=== PATIENT | male | born 1980 | race Two or more races ===

== ENCOUNTER → 2021-02-21 08:12 | Outpatient (BNVA) | payer SELFPAY | PROVIDERS: Visit Provider Surgery ==

== ENCOUNTER → 2021-02-26 10:59 | Outpatient (BNVA) | payer OTHER, SELFPAY | PROVIDERS: Visit Provider Physician Assistant ==

== ENCOUNTER 2021-08-05 17:39 | Inpatient (IN) | payer OTHER, SELFPAY ==
--- NOTE | 2021-08-05 | ECG_ITS ---
Test Reason : CHEST PAIN Blood Pressure : / mmHG Vent. Rate : 091 BPM Atrial Rate : 091 BPM P-R Int : 178 ms QRS Dur : 102 ms QT Int : 380 ms P-R-T Axes : 052 087 026 degrees QTc Int : 467 ms Normal sinus rhythm Low voltage QRS Nonspecific T wave abnormality RSR' or QR pattern in V1 suggests right ventricular conduction delay Abnormal ECG When compared with ECG of 05-AUG-2021 21:14, Nonspecific T wave abnormality now evident in Lateral leads Referred By: Edgar Hernandez Electronically Signed By:GAEL AGUIAR MD
--- NOTE | ~2021-08-05 | XR_ITS ---
EXAMINATION: XR chest 2V CLINICAL INFORMATION: Chest pain COMPARISON: No prior chest x-ray available in our system for comparison at the time of this dictation. TECHNIQUE: XR chest 2V Lungs and Jossy: Both lungs are clear. Pleura: Normal. Costophrenic angles are sharp. No pneumothorax. Heart: The heart is normal in size. Mediastinum: The mediastinum is within normal limits.. Bones: Skeletal structures included are normal for patient's age. XR/XR chest 2V IMPRESSION: Normal chest x-ray.
--- NOTE | 2021-08-05 08:36 | ECG_ITS ---
Test Reason : CHEST PAIN Blood Pressure : / mmHG Vent. Rate : 090 BPM Atrial Rate : 090 BPM P-R Int : 184 ms QRS Dur : 108 ms QT Int : 384 ms P-R-T Axes : 055 085 031 degrees QTc Int : 469 ms Normal sinus rhythm RSR' or QR pattern in V1 suggests right ventricular conduction delay Borderline ECG When compared with ECG of 05-AUG-2021 17:46, No significant change was found Referred By: Eamnuel Tariq Electronically Signed By:GAEL AGUIAR MD
--- NOTE | 2021-08-05 17:40 | ECG_ITS ---
Test Reason : CHEST PAIN Blood Pressure : / mmHG Vent. Rate : 079 BPM Atrial Rate : 079 BPM P-R Int : 184 ms QRS Dur : 104 ms QT Int : 398 ms P-R-T Axes : 055 080 030 degrees QTc Int : 456 ms Normal sinus rhythm RSR' or QR pattern in V1 suggests right ventricular conduction delay Borderline ECG No previous ECGs available Referred By: Generic ED Physician Electronically Signed By:GAEL AGUIAR MD
[2021-08-05 17:55] VITALS: BP 147/97; PULSE 81; RESP 18; TEMP 36.4; O2SAT 97; BMI 47.2
[2021-08-05 19:35] LABS: MANUAL DIFF FLAG NO
[2021-08-05 19:36] LABS: Basophils Percent Auto 0.1 % (0-2); Eosinophils Absolute Auto 0.1 X10*3/uL (0.0-0.4); Eosinophils Percent Auto 1.6 % (0-4); Hemoglobin 16.1 g/dl (14.0-18.0); Imm Gran Abs Auto 0.02 X10*3/uL (0.00-0.03); Imm Gran Pct Auto 0.2 % (0.0-0.4); Lymphocytes Absolute Auto 2.2 X10*3/uL (1.2-4.9); Lymphocytes Percent Auto 25.2 % (20-40); Mean Corpuscular HGB Conc 32.2 g/dl (31.0-36.0); Mean Corpuscular Hemoglobin 27.4 pg (27.0-33.0); Mean Corpuscular Volume 85.2 fL (80.0-98.0); Mean Platelet Volume 9.6 fL (9.4-12.4); Monocytes Absolute Auto 0.8 X10*3/uL (0.1-1.2); Monocytes Percent Auto 9.8 % (2-11); Neutrophils Absolute Auto 5.4 x10*3/uL (2.0-8.3); Neutrophils Percent Auto 63.1 % (45-73); Platelet Count 236 X10*3/uL (160-400); Red Blood Count 5.87 X10*6/uL (4.60-5.80); Red Cell Distribution Width 14.1 % (11.0-16.0); White Blood Count 8.6 X10*3/uL (4.8-10.8)
[2021-08-05 19:53] LABS: Alanine Aminotransferase 35 U/L (0-40); Albumin Level 4.1 g/dL (3.5-5.0); Alkaline Phosphatase 84 U/L (39-117); Anion Gap 11 (12-20); Aspartate Amino Transferase 56 U/L (5-37); Bilirubin Total 0.6 mg/dL (0.0-1.0); Blood Urea Nitrogen 10 mg/dL (9-16); Calcium 9.2 mg/dL (8.4-10.2); Carbon Dioxide 32 mmol/L (22-29); Chloride 101 mmol/L (96-108); Estimated Glomerular Filt Rate > 60; Glucose Random 104 mg/dL (60-115); Potassium 3.7 mmol/L (3.3-5.1); Sodium 140 mmol/L (135-145); Total Protein 7.9 g/dL (6.5-8.0)
[2021-08-05 20:28] VITALS: BP 145/100; PULSE 87; RESP 19; TEMP 37; O2SAT 97
--- NOTE | 2021-08-05 20:33 | ED.CHESTPAIN ---
HPI - Chest Pain General Chief Complaint: Chest Pain Stated Complaint: cp Time Seen by Provider: 08/05/21 20:24 Source: patient History of Present Illness HPI narrative: Patient complaining of 4 hours of chest pain. It is anterior chest and nonradiating. Worse with deep breath. No other associated symptoms such as dyspnea or diaphoresis. No history of similar pain in his life. Recent history significant for dental infection for which he is on clindamycin, but that is improving. He is due for a dental extraction in about 9 days. He takes no other medications. No history of diabetes or hypertension or smoking Positive history of obesity with a BMI of 47 Related Data Home Medications Medication Instructions Recorded Confirmed No Known Home Meds 02/21/21 02/21/21 Allergies Allergy/AdvReac Type Severity Reaction Status Date / Time Aspirin Allergy Unknown swelling Uncoded 08/05/21 17:55 Penicillin Allergy Unknown swelling Uncoded 08/05/21 17:55 Review of Systems Constitutional: Constitutional: Denies fever(s) ENT: Comments: Dental infection left lower anterior molar Cardiovascular: Cardiovascular: Reports chest pain Respiratory: Comments: No cough or dyspnea Gastrointestinal: Comments: No nausea vomiting Musculoskeletal: Comments: No leg pain Integumentary/Breasts: Comments: No rash PMFSH Past Medical History Medical History (Updated 08/05/21 @ 21:41 by Emanuel Tariq MD) GERD (gastroesophageal reflux disease) Morbid obesity Sleep apnea with use of continuous positive airway pressure (CPAP) Surgical History History of kidney surgery Social History Social History (Updated 02/21/21 @ 13:40 by Sonido Tovar MD) Alcohol intake: never Patient Tobacco Use Status: Former Tobacco user Advance Directives: No Advance Directives Information Provided: No Physical Exam Vital Signs: Vital Signs: Last Vital Signs Temp 98.6 F 08/05/21 20:28 Pulse 87 08/05/21 20:28 Resp 19 08/05/21 20:28 BP 145/100 H 08/05/21 20:28 Pulse Ox 97 08/05/21 20:28 Body Mass Index 47.2 Course Course Course Narrative: Chest pain Myocardial infarction Myocarditis Pericarditis Musculoskeletal pain EKG normal sinus rhythm without ischemic changes Patient is allergic to aspirin and NSAIDs. Allergy is rash and swollen face. Will hold off on aspirin treatment. 8:37 p.m.. Troponin is very elevated at 5600. Will repeat the troponin and repeat EKG now. Cardiology to be consulted 9:39 p.m.. Second troponin is 5688 up from 5641. Posterior EKG without ST elevation. Repeat EKG unchanged from prior now the patient is pain free. Case discussed with from Cardiology. Will start heparin and Brilinta. Patient is allergic to aspirin so will hold on this. Will hospitalize for further workup MDM - Chest Pain Lab Data Result diagrams: 08/05/21 19:30 08/05/21 19:30 Labs: Lab Results 08/05/21 08/05/21 08/05/21 Range/Units 19:30 19:30 19:30 WBC 8.6 (4.8-10.8) X10*3/uL RBC 5.87 H (4.60-5.80) X10*6/uL Hgb 16.1 (14.0-18.0) g/dl Hct 50.0 (42.0-52.0) % MCV 85.2 (80.0-98.0) fL MCH 27.4 (27.0-33.0) pg MCHC 32.2 (31.0-36.0) g/dl RDW 14.1 (11.0-16.0) % Plt Count 236 (160-400) X10*3/uL MPV 9.6 (9.4-12.4) fL Immature Gran % (Auto) 0.2 (0.0-0.4) % Neut % (Auto) 63.1 (45-73) % Lymph % (Auto) 25.2 (20-40) % [place] % (Auto) 9.8 (2-11) % Eos % (Auto) 1.6 (0-4) % Baso % (Auto) 0.1 (0-2) % Lymph # (Auto) 2.2 (1.2-4.9) X10*3/uL [place] # (Auto) 0.8 (0.1-1.2) X10*3/uL Eos # (Auto) 0.1 (0.0-0.4) X10*3/uL Baso # (Auto) 0.0 (0.0-0.2) X10*3/uL Abs Immat Gran (auto) 0.02 (0.00-0.03) X10*3/uL Absolute Neuts (auto) 5.4 (2.0-8.3) x10*3/uL Absolute Nucleated RBC 0.000 (0.0-0.012) X10*3/uL Nucleated RBC % (auto) 0.0 (0.0-0.2) /100WBC D-Dimer High Sensitivty NG/ML Sodium 140 (135-145) mmol/L Potassium 3.7 (3.3-5.1) mmol/L Chloride 101 (96-108) mmol/L Carbon Dioxide 32 H (22-29) mmol/L Anion Gap 11 L (12-20) BUN 10 (9-16) mg/dL Creatinine 0.81 (0.5-1.4) mg/dL Estim Creat Clear Calc 174.0 Estimated GFR > 60 Random Glucose 104 (60-115) mg/dL Calcium 9.2 (8.4-10.2) mg/dL Total Bilirubin 0.6 (0.0-1.0) mg/dL AST 56 H (5-37) U/L ALT 35 (0-40) U/L Alkaline Phosphatase 84 (39-117) U/L Troponin I High Sens 5641.3 H* (<3.5-35.0) ng/L Total Protein 7.9 (6.5-8.0) g/dL Albumin 4.1 (3.5-5.0) g/dL 08/05/21 08/05/21 Range/Units 20:35 20:58 WBC (4.8-10.8) X10*3/uL RBC (4.60-5.80) X10*6/uL Hgb (14.0-18.0) g/dl Hct (42.0-52.0) % MCV (80.0-98.0) fL MCH (27.0-33.0) pg MCHC (31.0-36.0) g/dl RDW (11.0-16.0) % Plt Count (160-400) X10*3/uL MPV (9.4-12.4) fL Immature Gran % (Auto) (0.0-0.4) % Neut % (Auto) (45-73) % Lymph % (Auto) (20-40) % [place] % (Auto) (2-11) % Eos % (Auto) (0-4) % Baso % (Auto) (0-2) % Lymph # (Auto) (1.2-4.9) X10*3/uL [place] # (Auto) (0.1-1.2) X10*3/uL Eos # (Auto) (0.0-0.4) X10*3/uL Baso # (Auto) (0.0-0.2) X10*3/uL Abs Immat Gran (auto) (0.00-0.03) X10*3/uL Absolute Neuts (auto) (2.0-8.3) x10*3/uL Absolute Nucleated RBC (0.0-0.012) X10*3/uL Nucleated RBC % (auto) (0.0-0.2) /100WBC D-Dimer High Sensitivty 156 NG/ML Sodium (135-145) mmol/L Potassium (3.3-5.1) mmol/L Chloride (96-108) mmol/L Carbon Dioxide (22-29) mmol/L Anion Gap (12-20) BUN (9-16) mg/dL Creatinine (0.5-1.4) mg/dL Estim Creat Clear Calc Estimated GFR Random Glucose (60-115) mg/dL Calcium (8.4-10.2) mg/dL Total Bilirubin (0.0-1.0) mg/dL AST (5-37) U/L ALT (0-40) U/L Alkaline Phosphatase (39-117) U/L Troponin I High Sens 5680.1 H* (<3.5-35.0) ng/L Total Protein (6.5-8.0) g/dL Albumin (3.5-5.0) g/dL Discharge Plan Discharge Prescriptions: No Action No Known Home Meds RF: 0
[2021-08-05] MEDS: Nitroglycerin 2 % Oint 1 GM Packet 1 INCH TRANSDERMA (20:39)
[2021-08-05 21:21] LABS: D Dimer High Sensitivity 156 NG/ML
[2021-08-05] MEDS: Ticagrelor 90 MG TABLET 180 MG PO (21:54)
[2021-08-05 21:58] VITALS: BP 120/91; PULSE 86; RESP 18; O2SAT 94
[2021-08-05 22:32] LABS: INTERNATIONAL NORM RATIO 1.2 (0.9-1.1); Prothrombin Time 14.1 SEC (9.9-13.0)
--- NOTE | 2021-08-05 22:34 | PM.IMHP ---
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 Pain started around 4:00 p.m., nonradiating, occurred at rest, resolved with arrival to the ED and receiving pain medication in the ED, he can not describe the pain it just feels very uncomfortable, associated with shortness of breath, 8/10, lasting about 1 hour and resolving spontaneously. Patient reports that he was feeling severely tired today and had shaking and chest fell overall sick. He otherwise denies any abdominal pain nausea or vomiting, no diarrhea constipation, no urinary symptoms and no lower extremity edema. On arrival to the ED patient hemodynamically stable with no significant abnormal vitals Labs are significant for WBC count of 9.6 hemoglobin of 14.5, initial troponin of 5641 increase to 5680 COVID-19 negative EKG is normal sinus rhythm with no significant ST T wave changes Chest x-ray shows no abnormal findings Patient started on heparin drip and will be admitted for further management Review of Systems Review of Systems: Yes all other systems are reviewed and are negative [facility] Medical History GERD (gastroesophageal reflux disease) Morbid obesity Sleep apnea with use of continuous positive airway pressure (CPAP) Family History Father Coronary artery disease Diabetes Surgical History History of kidney surgery Social History Household Members: Spouse Housing: House Do you presently have visiting nurse or other home services: No Alcohol intake: never Patient Tobacco Use Status: Former Tobacco user Use of substances other than those prescribed or required for medical reasons: No Have you been hit, kicked, punched, or otherwise hurt by someone within the past year? If so, by whom?: No Do you feel safe in your current relationship?: Yes Is there a partner from a previous relationship who is making you feel unsafe now?: No Are you made to feel afraid or neglected: No Advance Directives: No Advance Directives Information Provided: No Do you have thoughts of harming others: None Do you have a plan to hurt others: No Plan Recently lost weight without trying: No Eating poorly because of decreased appetite: No Nutrition Risks: No Nutritional Risk Poor oral hygiene: No Meds Allergies Allergy/AdvReac Type Severity Reaction Status Date / Time Aspirin Allergy Unknown swelling Uncoded 08/05/21 17:55 Penicillin Allergy Unknown swelling Uncoded 08/05/21 17:55 Active Medications: Current Medications Heparin Sodium (Porcine) (Heparin Sodium,Porcine 5,000 Unit/Ml Vial) 5,800 unit 40 unit/kg (5800 unit) IVPUSH PROTOCOL BOLUS PRN; Protocol PRN Reason: 40 unit/kg - Heparin Protocol Heparin Sodium (Porcine) (Heparin Sodium,Porcine 5,000 Unit/Ml Vial) 10,000 unit IVPUSH PROTOCOL BOLUS PRN; Protocol PRN Reason: 80 unit/kg - Heparin Protocol Heparin Sodium/Sodium Chloride () 25,000 unit in 250 mls @ 0 mls/hr IVCONT .Q0M BROOKE; Protocol Home Medications Medication Instructions Recorded Confirmed Last Taken Type No Known Home Meds 02/21/21 02/21/21 Unknown History Physical Exam Vital Signs and Narrative: Vital Signs: Last Vital Signs Temp 98.6 F 08/05/21 20:28 Pulse 86 08/05/21 21:58 Resp 18 08/05/21 21:58 BP 120/91 H 08/05/21 21:58 Pulse Ox 94 08/05/21 21:58 Body Mass Index 47.2 Const: General: cooperative and no acute distress Orientation/consciousness: patient oriented x3 Eyes: General: appearance normal, both eyes and all related structures Pupils: Equal, round and reactive pupils present Resp: Effort & Inspection: normal respiratory effort Auscultation: clear to auscultation bilaterally Cardio: Rate: regular rate Rhythm: regular rhythm GI: Palpation (GI): Soft to palpation Auscultation: normal bowel sounds Skin: General skin exam: no rashes or lesions noted Neuro: General: patient oriented x3 Cranial nerves: Yes Equal, round and reactive pupils present Cognition (Neuro): normal cognition Extrem: General: Yes normal to inspection and Yes no pedal edema Results Labs CBC and Chem 7: 08/06/21 04:33 08/06/21 04:33 Labs: Laboratory Results - last 24 hr 08/05/21 08/05/21 08/05/21 19:30 19:30 19:30 MCV 85.2 MCH 27.4 MCHC 32.2 RDW 14.1 Plt Count 236 MPV 9.6 Immature Gran % (Auto) 0.2 Neut % (Auto) 63.1 Lymph % (Auto) 25.2 [place] % (Auto) 9.8 Eos % (Auto) 1.6 Baso % (Auto) 0.1 Lymph # (Auto) 2.2 [place] # (Auto) 0.8 Eos # (Auto) 0.1 Baso # (Auto) 0.0 Abs Immat Gran (auto) 0.02 Absolute Neuts (auto) 5.4 Absolute Nucleated RBC 0.000 Nucleated RBC % (auto) 0.0 D-Dimer High Sensitivty Anion Gap 11 L Estim Creat Clear Calc 174.0 Estimated GFR > 60 Random Glucose 104 Calcium 9.2 Total Bilirubin 0.6 AST 56 H ALT 35 Alkaline Phosphatase 84 Troponin I High Sens 5641.3 H* Total Protein 7.9 Albumin 4.1 08/05/21 08/05/21 20:35 20:58 MCV MCH MCHC RDW Plt Count MPV Immature Gran % (Auto) Neut % (Auto) Lymph % (Auto) [place] % (Auto) Eos % (Auto) Baso % (Auto) Lymph # (Auto) [place] # (Auto) Eos # (Auto) Baso # (Auto) Abs Immat Gran (auto) Absolute Neuts (auto) Absolute Nucleated RBC Nucleated RBC % (auto) D-Dimer High Sensitivty 156 Anion Gap Estim Creat Clear Calc Estimated GFR Random Glucose Calcium Total Bilirubin AST ALT Alkaline Phosphatase Troponin I High Sens 5680.1 H* Total Protein Albumin Imaging Radiologist's Impressions: Impressions Chest X-Ray 08/05/21 17:58 IMPRESSION: Normal chest x-ray. Assessment and Plan (1) Acute non-ST elevation myocardial infarction (NSTEMI): Status: Acute 41-year-old male with past medical history of asthma as well as sleep apnea presents to hospital with chest pain found to have NSTEMI # NSTEMI - presented with chest pain, significantly elevated troponin, no EKG changes - patient started on heparin drip - will add Lopressor, high-dose statin, allergic to aspirin - echocardiogram - consult cardiology # asthma - not in exacerbation - rescue inhalers if needed # sleep apnea - noncompliant with CPAP DVT prophylaxis: Heparin GGT Quality Stroke Does the patient have a stroke diagnosis?: No VTE Prior VTE?: No VTE Risk Level:: Medical - moderate - high VTE Device Contraindication: Treatment Not Indicated VTE Drug Contraindication: N/A - Med Ordered
[2021-08-05 22:35] LABS: Partial Thromboplastin Time 34.2 SEC (24.1-38.0)
[2021-08-05 22:37] LABS: COVID-19 Test Negative (Negative)
[2021-08-05] MEDS: Heparin Sodium,Porcine 5,000 UNIT/ML VIAL 5800 UNIT IVPUSH (22:43)
[2021-08-05] MEDS: Heparin Sodium,Porcine/1/2NS 25,000 UNIT/250 ML IV.SOLN 20.32 UNIT IVCONT (22:46)
[2021-08-05 22:50] VITALS: BP 114/76; PULSE 81; RESP 15; TEMP 36.9; O2SAT 94
[2021-08-06] MEDS: 0.9 % Sodium Chloride Flush 3 ML SYRINGE IVFLUSH (00:11)
[2021-08-06 03:30] VITALS: BP 134/83; PULSE 81; RESP 20; TEMP 36.8; O2SAT 97
[2021-08-06 04:37] LABS: MANUAL DIFF FLAG NO
[2021-08-06 04:39] LABS: Basophils Percent Auto 0.3 % (0-2); Eosinophils Absolute Auto 0.2 X10*3/uL (0.0-0.4); Eosinophils Percent Auto 2.2 % (0-4); Hematocrit 44.9 % (42.0-52.0); Hemoglobin 14.5 g/dl (14.0-18.0); Imm Gran Abs Auto 0.03 X10*3/uL (0.00-0.03); Imm Gran Pct Auto 0.3 % (0.0-0.4); Lymphocytes Absolute Auto 2.5 X10*3/uL (1.2-4.9); Lymphocytes Percent Auto 26.6 % (20-40); Mean Corpuscular HGB Conc 32.3 g/dl (31.0-36.0); Mean Corpuscular Hemoglobin 27.4 pg (27.0-33.0); Mean Corpuscular Volume 84.9 fL (80.0-98.0); Monocytes Absolute Auto 1.1 X10*3/uL (0.1-1.2); Monocytes Percent Auto 11.6 % (2-11); Neutrophils Absolute Auto 5.6 x10*3/uL (2.0-8.3); Platelet Count 237 X10*3/uL (160-400); Red Blood Count 5.29 X10*6/uL (4.60-5.80); Red Cell Distribution Width 14.2 % (11.0-16.0); White Blood Count 9.6 X10*3/uL (4.8-10.8)
[2021-08-06 04:49] LABS: PTT Heparin Drip 51.3 SEC (53-77.9)
[2021-08-06 04:53] LABS: Anion Gap 13 (12-20); Blood Urea Nitrogen 10 mg/dL (9-16); Calcium 8.6 mg/dL (8.4-10.2); Carbon Dioxide 26 mmol/L (22-29); Chloride 106 mmol/L (96-108); Creatinine Clr Calc Pharmacy 201.3; Estimated Glomerular Filt Rate > 60; Glucose Random 113 mg/dL (60-115); Potassium 3.5 mmol/L (3.3-5.1); Sodium 141 mmol/L (135-145)
[2021-08-06] MEDS: Heparin Sodium,Porcine 5,000 UNIT/ML VIAL 5800 UNIT IVPUSH (05:04)
[2021-08-06 07:23] VITALS: BP 115/66; PULSE 75; RESP 20; TEMP 36.7; O2SAT 91
--- NOTE | 2021-08-06 10:00 | CA_ITS ---
Transthoracic Echocardiogram Patient (Last, First, Middle): Trino Pink, Gender: Male Date of : 1980 Age: 41 Procedure Date: 08/06/2021 Procedure Type: Transthoracic [place] [facility] [place]: 177.8 cm Weight: 154.22 kg BSA: 2.62 m2 Heart Rate: bpm BP: 134 / 80 mmHg Loop Tender: Referring MD: Helen Spencer MD Cinder Pit Worker: Kush Alvarez MD Symptoms: NSTEMI Study Quality: Fair ECG Rhythm: Sinus Conclusions: - 1. [id number] LV systolic dysfunction mild LVH with impaired relaxation filling pattern with underlying wall motion abnormality suggestive of coronary artery disease 2. Limited evaluation of cardiac valves with normal cardiac valvular Doppler Findings Left Ventricle Normal left ventricular cavity size. There is mildly increased left ventricular wall thickness. The left ventricular systolic function is mild to moderately decreased. The visually estimated ejection fraction is between 40-45%. Spectral Doppler is indicative of an impaired relaxation filling pattern. E/E prime ratio is between 8 and 15 consistent with indeterminate filling pressures. Wall Motion Rest Echo Findings The inferolateral wall and mid inferior segment are hypokinetic. The inferoseptal wall, the basal inferior, and apical septum segments are akinetic. All other scored wall segments showed normal motion. Right Ventricle Mildly increased right ventricular cavity size. There is normal right ventricular systolic function. Atria The left atrium is mildly dilated. Interatrial shunt cannot be excluded. The right atrium was not well visualized. Aortic Valve The aortic valve structure and function is likely normal. There is no aortic valve stenosis. There is no aortic valve regurgitation. Mitral Valve Likely normal mitral valve structure and function. There is trace mitral valve regurgitation. There is no mitral valve stenosis. Pulmonic Valve The pulmonic valve was not well visualized. Tricuspid Valve The tricuspid valve was not well visualized. Tricuspid regurgitation envelope is inadequate for calculation of right ventricular systolic pressure. Great Vessels The aorta was not well visualized. The pulmonary artery was not well visualized. Venous The inferior vena cava is mildly dilated. Pericardium/Pleural The pericardium was not well visualized. Prior Study Comparison No prior study available for comparison. Measurements 2D Linear Measurements IVSd: 1.20 0.6-0.9/0.6-1.0 cm LVIDd: 5.24 3.9-5.3/4.2-5.9 cm LVIDd Index: 2.00 2.4-3.2/2.2-3.1 cm/m2 LVIDs: 3.08 2.0-3.6 cm LVPWd: 1.21 0.7-1.1 cm Ao Root: 3.60 2.1-3.5 cm LA Diam: 4.40 2.7-3.8/3.0-4.0 cm LAIDs Index: 1.68 1.5-2.3 cm/m2 LV Mass: 315.97 67-162/88-224 g LV Mass Index: 120.60 43-95/49-115 g/m2 LVOT Diam: 2.40 3.0+(-)1.3 cm 2D Systolic Function EF 4C: 41.60 >55% EF 2C: 46.30 >55% EF BiP: 44.90 >55% Mitral Valve MV Pk E: 0.71 MV PK A: 0.81 MV Decel Time: 155.00 E/A: 0.90 E'Lateral: 8.05 E'Medial: 6.20 E/E' Med: 11.40 E/E' Lat: 8.80 PHT: 45.00 MVA PHT: 4.89 Decel Dickson: 4.57 Aortic Valve AoV Pk Dewey: 1.08 AoV Mn Dewey: 0.74 AoV VTI: 0.22 AoV Pk Grad: 5.00 Aov Mn Grad: 3.00 OMKAR Cont.VTI: 4.36 LVOT LVOT Pk Dewey: 0.96 LVOT Mn Dewey: 0.68 LVOT VTI: 0.22 LVOT Pk Grad: 4.00 LVOT Mn Grad: 2.00 LVOT Diam: 2.40 LVOT Area: 4.52 Diastolic Function MV Pk E: 0.71 MV Pk A: 0.81 E/A: 0.90 E'Medial: 6.20 E/E' Med: 11.40 E' Laterial: 8.05 E/E' Lat: 8.80 Tricuspid Valve TR Pk Dewey: 2.08 TR Pk Grad: 17.00 Great Vessels Aorta Ao Root-2D: 3.60 2.0-3.7 cm Ao Asc: 3.50 2.1-3.4 cm Pulmonary Valve PV Pk Dewey: 1.00 Peak PV Grad: 4.00 Updated in Other Vendor System with Status of Final Kush Alvarez MD electronically signed on 08/06/2021 3:38:55 PM with status of Final
--- NOTE | 2021-08-06 10:00 | P.CONCA_ITS ---
History of Present Illness History of Present Illness Date of Service: 08/06/21 Requesting physician: Helen Spencer Consult reason: chest pain Chief complaint: NSTEMI Narrative: Thank you for consulting us on Trino from Cardiology perspective for chest pain elevated troponins. History was obtained with help of a language interpreter in the room. Patient's was also in the room with him. Patient with prior history of asthma, morbid obesity, sleep apnea untreated as patient cannot tolerate CPAP therapy. In usual state of health yesterday was in a restaurant with his . As per the he got a little upset with the service and then subsequently developed retrosternal chest pressure which he describes as sharp pressure, worse with deep breathing radiating will side of the chest. However symptoms did not subside any decided to go home and went home, could not eat because he continued to have the chest pressure. He then developed to sleep but then woke up suddenly feeling weak and feeling shaky. He had no associated symptoms of shortness of breath or diaphoresis. No nausea vomiting. He has never had symptoms like this before. Symptoms persisted for greater than an hour. He then decided to come to the emergency room. Initially in the emergency room was no significant ischemic changes. He subsequently received nitro paste as well as IV medication subsequently with discomfort resolved. His initial troponin was 5600 and subsequently to 5800. He was admitted and started on IV heparin. He has remained chest pain-free at this point in time. Blood pressure was well optimized. He does have allergy for aspirin with what appears to be hives and throat swelling. He has received loading dose of Brilinta. Review of Systems Constitutional: Constitutional: Reports no additional constitutional complaints Eyes: Eyes: Reports no additional eye complaints ENT: Reports system reviewed and no additional complaints, except as docu mented Cardiovascular: Cardiovascular: Reports chest pain at rest, Denies syncope, Denies lightheadedness, Denies Loss of Consciousness, Denies palpitations and Denies dyspnea on exertion Respiratory: Respiratory: Reports no additional respiratory complaints and Denies dyspnea on exertion Gastrointestinal: Gastrointestinal: Reports no additional gastrointestinal complaints Genitourinary: Genitourinary: Reports no additional male genitourinary complaints Musculoskeletal: Musculoskeletal: Reports no additional musculoskeletal complaints Integumentary/Breasts: Skin/Breast: Reports system reviewed and no additional complaints, except as docu Neurologic: Reports system reviewed and no additional complaints, except as documented and Denies syncope Psychiatric: Psychiatric: Reports no additional psychiatric complaints Endocrine: Endocrine: Reports no additional endocrine complaints and Denies palpitations Hematologic/Lymphatic: Hematologic/Lymphatic: Reports no additional price tologic/lymphatic complaints Allergic/Immunologic: Allergic/Immunologic: Reports no additional allergic/immunologic complaints [facility] Past Medical History Medical History GERD (gastroesophageal reflux disease) Morbid obesity Sleep apnea with use of continuous positive airway pressure (CPAP) Family History Family History Father Coronary artery disease Diabetes Surgical History Surgical History History of kidney surgery Social History Social History Household Members: Spouse Housing: House Do you presently have visiting nurse or other home services: No Alcohol intake: never Patient Tobacco Use Status: Former Tobacco user Use of substances other than those prescribed or required for medical reasons: No Have you been hit, kicked, punched, or otherwise hurt by someone within the past year? If so, by whom?: No Do you feel safe in your current relationship?: Yes Is there a partner from a previous relationship who is making you feel unsafe now?: No Are you made to feel afraid or neglected: No Advance Directives: No Advance Directives Information Provided: No Do you have thoughts of harming others: None Do you have a plan to hurt others: No Plan Recently lost weight without trying: No Eating poorly because of decreased appetite: No Nutrition Risks: No Nutritional Risk Poor oral hygiene: No Meds Allergies Allergy/AdvReac Type Severity Reaction Status Date / Time Aspirin Allergy Unknown swelling Uncoded 08/05/21 17:55 Penicillin Allergy Unknown swelling Uncoded 08/05/21 17:55 Active Medications: Current Medications Acetaminophen (Acetaminophen 325 Mg Tablet) 650 mg PO Q6H PRN PRN Reason: Pain, Mild (Pain Scale 1-3) Atorvastatin Calcium (Atorvastatin Calcium 40 Mg Tablet) 40 mg PO DAILY [place] Docusate Sodium (Docusate Sodium 100 Mg Capsule) 100 mg PO DAILY PRN PRN Reason: Constipation Heparin Sodium (Porcine) (Heparin Sodium,Porcine 5,000 Unit/Ml Vial) 5,800 unit 40 unit/kg (5800 unit) IVPUSH PROTOCOL BOLUS PRN; Protocol PRN Reason: 40 unit/kg - Heparin Protocol Last Admin: 08/06/21 05:04 Dose: 5,800 unit Documented by: Heparin Sodium (Porcine) (Heparin Sodium,Porcine 5,000 Unit/Ml Vial) 10,000 u nit IVPUSH PROTOCOL BOLUS PRN; Protocol PRN Reason: 80 unit/kg - Heparin Protocol Heparin Sodium/Sodium Chloride () 25,000 unit in 250 mls @ 0 mls/hr IVCONT .Q0M [facility]; Protocol Last Titration: 08/06/21 05:05 Dose: 16 units/kg/hr, 23.22 mls/hr Documented by: Metoprolol Tartrate (Metoprolol Tartrate 12.5 Mg Halftab) 12.5 mg PO BID [facility]; Protocol Morphine Sulfate (Morphine Sulfate 4 Mg/Ml Cartridge) 4 mg IVPUSH Q4H PRN; Protocol PRN Reason: Pain, Severe (Pain Scale 7-10) Ondansetron HCl (Ondansetron Hcl 4 Mg/2 Ml Vial) 4 mg IVPUSH Q8H PRN PRN Reason: Nausea and Vomiting Pharmacy Consult (Consult Rx Perform Med Rec) 1 each MISCELLANE ONCE PRN PRN Reason: Consult order Sodium Chloride (0.9 % Sodium Chloride Flush 3 Ml Syringe) 3 ml IVFLUSH [facility] Last Admin: 08/06/21 00:11 Dose: 3 ml Documented by: Home Medications Medication Instructions Recorded Confirmed Last Taken Type No Known Home Meds 02/21/21 02/21/21 Unknown History Physical Exam Vital Signs: Vital Signs: Last Vital Signs Temp 98.0 F 08/06/21 07:23 Pulse 75 08/06/21 07:23 Resp 20 08/06/21 07:23 BP 115/66 08/06/21 07:23 Pulse Ox 91 L 08/06/21 07:23 Body Mass Index 47.2 Const: General: cooperative, comfortable, no acute distress, alert and awake Nutritional Appearance: obese morbidly obese Orientation/consciousness: patient oriented x3 Limitations: no limitations HENMT: Head: Yes normocephalic and Yes atraumatic Neck: Neck: Yes trachea midline, Yes supple and Yes no JVD Chest: Chest palpation & inspection: normal inspection of the chest Resp: Effort & Inspection: normal respiratory effort Auscultation: clear to auscultation bilaterally Cardio: Jugular venous distension: no JVD Palpation: normal PMI Rate: regular rate Rhythm: regular rhythm Heart sounds: S1 normal heart sound present, S2 normal heart sound present, no click, no gallops, no murmurs and no rubs GI: Inspection: Yes Abdominal panniculus present and Yes obesity Auscultation: normal bowel sounds Skin: General skin exam: no rashes or lesions noted Neuro: General: patient oriented x3 and no focal motor deficits Extrem: General: Yes no clubbing, cyanosis or edema Psych: Appearance: grossly normal Objective Labs and Meds Result diagrams: 08/06/21 04:33 08/06/21 04:33 Lab results: Laboratory Results - last 24 hr 08/05/21 08/05/21 08/05/21 19:30 19:30 19:30 WBC 8.6 RBC 5.87 H Hgb 16.1 Hct 50.0 MCV 85.2 MCH 27.4 MCHC 32.2 RDW 14.1 Plt Count 236 MPV 9.6 Immature Gran % (Auto) 0.2 Neut % (Auto) 63.1 Lymph % (Auto) 25.2 [place] % (Auto) 9.8 Eos % (Auto) 1.6 Baso % (Auto) 0.1 Lymph # (Auto) 2.2 [place] # (Auto) 0.8 Eos # (Auto) 0.1 Baso # (Auto) 0.0 Abs Immat Gran (auto) 0.02 Absolute Neuts (auto) 5.4 Absolute Nucleated RBC 0.000 Nucleated RBC % (auto) 0.0 PT INR APTT PTT (Heparin Protocol) D-Dimer High Sensitivty Sodium 140 Potassium 3.7 Chloride 101 Carbon Dioxide 32 H Anion Gap 11 L BUN 10 Creatinine 0.81 Estim Creat Clear Calc 174.0 Estimated GFR > 60 Random Glucose 104 Calcium 9.2 Total Bilirubin 0.6 AST 56 H ALT 35 Alkaline Phosphatase 84 Troponin I High Sens 5641.3 H* Total Protein 7.9 Albumin 4.1 COVID-19 (JAMES) COVID-19 Clin Com 08/05/21 08/05/21 08/05/21 20:35 20:58 22:18 WBC RBC Hgb Hct MCV MCH MCHC RDW Plt Count MPV Immature Gran % (Auto) Neut % (Auto) Lymph % (Auto) [place] % (Auto) Eos % (Auto) Baso % (Auto) Lymph # (Auto) [place] # (Auto) Eos # (Auto) Baso # (Auto) Abs Immat Gran (auto) Absolute Neuts (auto) Absolute Nucleated RBC Nucleated RBC % (auto) PT INR APTT PTT (Heparin Protocol) D-Dimer High Sensitivty 156 Sodium Potassium Chloride Carbon Dioxide Anion Gap BUN Creatinine Estim Creat Clear Calc Estimated GFR Random Glucose Calcium Total Bilirubin AST ALT Alkaline Phosphatase Troponin I High Sens 5680.1 H* Total Protein Albumin COVID-19 (JAMES) Negative COVID-19 Clin Com See Note 08/05/21 08/06/21 08/06/21 22:18 04:33 04:33 WBC 9.6 RBC 5.29 Hgb 14.5 Hct 44.9 MCV 84.9 MCH 27.4 MCHC 32.3 RDW 14.2 Plt Count 237 MPV 10.0 Immature Gran % (Auto) 0.3 Neut % (Auto) 59.0 Lymph % (Auto) 26.6 [place] % (Auto) 11.6 H Eos % (Auto) 2.2 Baso % (Auto) 0.3 Lymph # (Auto) 2.5 [place] # (Auto) 1.1 Eos # (Auto) 0.2 Baso # (Auto) 0.0 Abs Immat Gran (auto) 0.03 Absolute Neuts (auto) 5.6 Absolute Nucleated RBC 0.000 Nucleated RBC % (auto) 0.0 PT 14.1 H INR 1.2 H APTT 34.2 PTT (Heparin Protocol) D-Dimer High Sensitivty Sodium 141 Potassium 3.5 Chloride 106 Carbon Dioxide 26 Anion Gap 13 BUN 10 Creatinine 0.70 Estim Creat Clear Calc 201.3 Estimated GFR > 60 Random Glucose 113 Calcium 8.6 D Total Bilirubin AST ALT Alkaline Phosphatase Troponin I High Sens Total Protein Albumin COVID-19 (JAMES) COVID-19 [place] Com 08/06/21 04:33 WBC RBC Hgb Hct MCV MCH MCHC RDW Plt Count MPV Immature Gran % (Auto) Neut % (Auto) Lymph % (Auto) [place] % (Auto) Eos % (Auto) Baso % (Auto) Lymph # (Auto) [place] # (Auto) Eos # (Auto) Baso # (Auto) Abs Immat Gran (auto) Absolute Neuts (auto) Absolute Nucleated RBC Nucleated RBC % (auto) PT INR APTT PTT (Heparin Protocol) 51.3 L D-Dimer High Sensitivty Sodium Potassium Chloride Carbon Dioxide Anion Gap BUN Creatinine Estim Creat Clear Calc Estimated GFR Random Glucose Calcium Total Bilirubin AST ALT Alkaline Phosphatase Troponin I High Sens Total Protein Albumin COVID-19 (JAMES) COVID-19 Clin Com Imaging Radiologist's impression: Impressions Chest X-Ray 08/05/21 17:58 IMPRESSION: Normal chest x-ray. Assessment and Plan (1) Acute non-ST elevation myocardial infarction (NSTEMI): Status: Acute Patient's symptoms and elevated troponins highly consistent with primary acute coronary syndrome. SOFYA risk score of 2. Would recommend cardiac catheterization. This was discussed with him. Discussed the procedure in detail including risks, benefits, alternatives 2nd opinion procedure. He showed understanding. He is agreeable for transfer. Continue IV heparin. Continue Brilinta 90 mg b.i.d.. Continue high-intensity statin therapy. Low-dose beta- blockers and nitro paste to continue. Further treatment based on the findings of cardiac catheterization. He has significant aspirin allergy and will direct treatment and antiplatelet therapy based on the findings and type of stent used. This was discussed with him. He understands and agrees. Echocardiogram pre done. Will review it. Follow up in the clinic after cardiac catheterization in few weeks. Thank you for allowing me to partake in his care Procedures Date of Service Date of Service: 08/06/21
--- NOTE | 2021-08-06 10:07 | MHC.CM.PN ---
with interpeertaor met with pt who lices with his s/o pt had no previous servceis pt to be transferred to [facility] today
--- NOTE | 2021-08-06 10:14 | PHA.MEDREC ---
Pharmacy Consult ? Medication Reconciliation Pharmacy has completed the medication reconciliation. Per interpertur patient is being transfer, completed med rec based on claim history. Desi Cooper, RanjitD
[2021-08-06 10:18] VITALS: BP 115/66; PULSE 75
[2021-08-06] MEDS: Metoprolol Tartrate 12.5 MG HALFTAB PO (10:18)
[2021-08-06] MEDS: Atorvastatin Calcium 40 MG TABLET PO (10:18)
[2021-08-06] MEDS: Heparin Sodium,Porcine/1/2NS 25,000 UNIT/250 ML IV.SOLN 23.22 UNIT IVCONT (10:19)
--- NOTE | 2021-08-06 10:19 | P.DS_ITS ---
DS: Providers Provider Date of Service: 08/06/21 Date of admission: 08/05/21 22:33 Primary care physician: None Physician Consults: 08/05/21 22:52 Consult to Cardiology Routine Consulting Provider: Woo Olson Reason for consultation: NSTEMI Has provider been notified: Yes DS: Diagnosis Discharge Diagnosis (1) Acute non-ST elevation myocardial infarction (NSTEMI): Status: Acute DS: Summary Hospital Course Hospital Course: from admission H+P by hospitalist Helen Spencer MD, 08/05/21: 41-year-old male with past medical history of asthma as well as sleep apnea not compliant with CPAP, GERD as well as morbid obesity who presents to the hospital with complaints of midsternal chest pain.? Pain started around 4:00 p.m., nonradiating, occurred at rest, resolved with arrival to the ED and receiving pain medication in the ED, he can not describe the pain it just feels very uncomfortable, associated with shortness of breath, 8/10, lasting about 1 hour and resolving spontaneously.? Patient reports that he was feeling severely tired today and had shaking and chest fell overall sick. He otherwise denies any abdominal pain nausea or vomiting, no diarrhea constipation, no urinary symptoms and no lower extremity edema.? On arrival to the ED patient hemodynamically stable with no significant abnormal vitals Labs are significant for WBC count of 9.6 hemoglobin of 14.5, initial troponin of? 5641 increase to 5680 COVID-19 negative EKG is normal sinus rhythm with no significant ST T wave changes Chest x-ray shows no abnormal findings Patient started on heparin drip and will be admitted for further management And from risk consultant by Kush Alvarez MD, 08/06/21: Thank you for consulting us on Trino from Cardiology perspective for chest pain elevated troponins.? History was obtained with help of? a information technology assistant in the room.? Patient's was also in the room with him.? Patient with prior history of asthma, morbid obesity, sleep apnea untreated as patient cannot tolerate CPAP therapy.? In usual state of health yesterday was in a restaurant with his .? As per the he got a little upset with the service and then subsequently developed retrosternal chest pressure which he describes as sharp pressure, worse with deep breathing radiating will side of the chest.? However symptoms did not subside any decided to go home and went home, could not eat because he continued to have the chest pressure.? He then developed to sleep but then woke up suddenly feeling weak and feeling shaky.? He had no associated symptoms of shortness of breath or diaphoresis.? No nausea vomiting.? He has never had symptoms like this before.? Symptoms persisted for greater than an hour.? He then decided to come to the emergency room.? Initially in the emergency room was no significant ischemic changes.? He subsequently received nitro paste as well as IV medication subsequently with discomfort resolved.? His initial troponin was 5600 and subsequently to 5800.? He was admitted and started on IV heparin.? He has remained chest pain-free at this point in time.? Blood pressure was well optimized.? He does have allergy for aspirin with what appears to be hives and throat swelling.? He has received loading dose of Brilinta. The patient was admitted to the [facility] and given heparin infusion. Ticagrelor was continued, along with high-intensity statin, low-dose beta-romana, and nitr oglycerin paste. Cardiology was consulted. He was transferred to [facility] for cardiac catheterization. Notably, he has a significant aspirin allergy and definitive antiplatelet therapy will depend on the type of stent used. Time Spent with Patient Time attestation: Total time spent providing and/or coordinating discharge services: Discharge coordination time: Greater than 30 minutes Quality: Stroke Does the patient have a stroke diagnosis?: No Physical Exam Vital Signs: Vital Signs: Last Vital Signs Temp 98.0 F 08/06/21 07:23 Pulse 75 08/06/21 07:23 Resp 20 08/06/21 07:23 BP 115/66 08/06/21 07:23 Pulse Ox 91 L 08/06/21 07:23 Body Mass Index 47.2 Gen: in no acute distress HEENT: sclera anicteric, moist mucus membranes Neck: supple Lungs: clear to auscultation bilaterally Heart: regular rate and rhythm, no murmurs Abd: soft, non-tender, non-distended, morbidly obese Ext: no edema Skin: warm/well-perfused Neuro: alert and oriented x3, no focal findings Psych: appropriate affect DS: Data Data Completed and Pending Completed studies during hospitalization [Text1]: Laboratory Results WBC 9.6 X10*3/uL (4.8-10.8) 08/06/21 04:33 RBC 5.29 X10*6/uL (4.60-5.80) 08/06/21 04:33 Hgb 14.5 g/dl (14.0-18.0) 08/06/21 04:33 Hct 44.9 % (42.0-52.0) 08/06/21 04:33 MCV 84.9 fL (80.0-98.0) 08/06/21 04:33 MCH 27.4 pg (27.0-33.0) 08/06/21 04:33 MCHC 32.3 g/dl (31.0-36.0) 08/06/21 04:33 RDW 14.2 % (11.0-16.0) 08/06/21 04:33 Plt Count 237 X10*3/uL (160-400) 08/06/21 04:33 MPV 10.0 fL (9.4-12.4) 08/06/21 04:33 Immature Gran % (Auto) 0.3 % (0.0-0.4) 08/06/21 04:33 Neut % (Auto) 59.0 % (45-73) 08/06/21 04:33 Lymph % (Auto) 26.6 % (20-40) 08/06/21 04:33 [place] % (Auto) 11.6 % (2-11) H 08/06/21 04:33 Eos % (Auto) 2.2 % (0-4) 08/06/21 04:33 Baso % (Auto) 0.3 % (0-2) 08/06/21 04:33 Lymph # (Auto) 2.5 X10*3/uL (1.2-4.9) 08/06/21 04:33 [place] # (Auto) 1.1 X10*3/uL (0.1-1.2) 08/06/21 04:33 Eos # (Auto) 0.2 X10*3/uL (0.0-0.4) 08/06/21 04:33 Baso # (Auto) 0.0 X10*3/uL (0.0-0.2) 08/06/21 04:33 Abs Immat Gran (auto) 0.03 X10*3/uL (0.00-0.03) 08/06/21 04:33 Absolute Neuts (auto) 5.6 x10*3/uL (2.0-8.3) 08/06/21 04:33 Absolute Nucleated RBC 0.000 X10*3/uL (0.0-0.012) 08/06/21 04:33 Nucleated RBC % (auto) 0.0 /100WBC (0.0-0.2) 08/06/21 04:33 PT 14.1 SEC (9.9-13.0) H 08/05/21 22:18 INR 1.2 (0.9-1.1) H 08/05/21 22:18 APTT 34.2 SEC (24.1-38.0) 08/05/21 22:18 PTT (Heparin Protocol) 51.3 SEC (53-77.9) L 08/06/21 04:33 D-Dimer High Sensitivty 156 NG/ML 08/05/21 20:58 Sodium 141 mmol/L (135-145) 08/06/21 04:33 Potassium 3.5 mmol/L (3.3-5.1) 08/06/21 04:33 Chloride 106 mmol/L (96-108) 08/06/21 04:33 Carbon Dioxide 26 mmol/L (22-29) 08/06/21 04:33 Anion Gap 13 (12-20) 08/06/21 04:33 BUN 10 mg/dL (9-16) 08/06/21 04:33 Creatinine 0.70 mg/dL (0.5-1.4) 08/06/21 04:33 Estim Creat Clear Calc 201.3 08/06/21 04:33 Estimated GFR > 60 08/06/21 04:33 Random Glucose 113 mg/dL (60-115) 08/06/21 04:33 Calcium 8.6 mg/dL (8.4-10.2) D 08/06/21 04:33 Total Bilirubin 0.6 mg/dL (0.0-1.0) 08/05/21 19:30 AST 56 U/L (5-37) H 08/05/21 19:30 ALT 35 U/L (0-40) 08/05/21 19:30 Alkaline Phosphatase 84 U/L (39-117) 08/05/21 19:30 Troponin I High Sens 5680.1 ng/L (<3.5-35.0) H* 08/05/21 20:35 Total Protein 7.9 g/dL (6.5-8.0) 08/05/21 19:30 Albumin 4.1 g/dL (3.5-5.0) 08/05/21 19:30 COVID-19 (JAMES) Negative (Negative) 08/05/21 22:18 COVID-19 Clin Com See Note 08/05/21 22:18 Impressions Chest X-Ray 08/05/21 17:58 IMPRESSION: Normal chest x-ray. Discharge Plan Discharge Patient Disposition: [facility] Hospital Discharge Diagnosis: NSTEMI Referrals: [facility] [Other] - 1 Week Physician,None [Primary Care Provider] - 1 Week Discharge Medications: New heparin(porcine) in 0.45% NaCl 25,000 unit/250 mL Parenteral Solution 25,000 unit continuous IV infusion .Q0M Qty: 1 RF: 0 atorvastatin 40 mg Tablet 40 mg PO DAILY Qty: 1 RF: 0 heparin (porcine) 5,000 unit/mL Solution 10,000 unit IVPUSH PROTOCOL BOLUS PRN (Reason: 80 Unit/Kg - Heparin Protocol) Qty: 1 RF: 0 heparin (porcine) 5,000 unit/mL Solution 5,800 unit IVPUSH PROTOCOL BOLUS PRN (Reason: 40 Unit/Kg - Heparin Protocol) Qty: 1 RF: 0 metoprolol tartrate 25 mg tablet 12.5 mg PO BID Qty: 1 RF: 0 Brilinta 90 mg Tablet 90 mg PO BID Qty: 1 RF: 0 Nitro-Bid 2 % Ointment 0.5 inch transdermal RQ6H WHILE AWAKE Qty: 30 RF: 0 Discontinued clindamycin HCl 300 mg capsule 1 cap PO BID RF: 0 acetaminophen-codeine 300-30 mg tablet 1 tab PO Q6H PRN (Reason: Pain) RF: 0 Discharge Orders: Discharge Order (Routine); Ordered 08/06/21 Ordered By: Edgar Hernandez Diet: advance to usual diet Activity on Discharge: As tolerated Stand Alone Forms: Patient Portal Discharge page Care Plan Goals: cardiovascular health Health Concerns: NSTEMI Plan of Treatment: transfer to [facility] for cardiac catheterization Assessment: See Discharge Summary Patient Instructions: Heart Catheterization (DC)
[2021-08-06] MEDS: Ticagrelor 90 MG TABLET PO (10:44)
[2021-08-06 11:21] LABS: PTT Heparin Drip 67.3 SEC (53-77.9)
--- NOTE | 2021-08-06 12:31 | ECG_ITS ---
Test Reason : CHEST PAIN Blood Pressure : / mmHG Vent. Rate : 076 BPM Atrial Rate : 076 BPM P-R Int : 186 ms QRS Dur : 106 ms QT Int : 410 ms P-R-T Axes : 053 057 026 degrees QTc Int : 461 ms Normal sinus rhythm Normal ECG When compared with ECG of 05-AUG-2021 21:20, Nonspecific T wave abnormality no longer evident in Lateral leads Referred By: Edgar Hernandez Electronically Signed By:GAEL AGUIAR MD
[2021-08-06] MEDS: Nitroglycerin 2 % Oint 1 GM Packet 0.5 INCH TRANSDERMA (12:34)
[2021-08-06 12:59] VITALS: BP 141/100; PULSE 75; RESP 20; TEMP 36.4; O2SAT 96
[2021-08-06] MEDS: Morphine Sulfate 4 MG/ML CARTRIDGE IVPUSH (13:02)
--- NOTE | 2021-08-06 13:14 | PC.NURSE ---
Patient c/o midsternal 7/10 chest pain while returning from echocardiogram. Stat EKG ordered, 0.5 inch nitro paste applied to right upper chest. 4mg IV morphine administered at 1310. NSR on tele. notified. Awaiting bed availability for transfer to [facility].
[2021-08-06 15:17] VITALS: BP 123/96; PULSE 80; RESP 18; TEMP 36.3; O2SAT 95
== END 2021-08-06 16:30 | disposition short-term general hospital (02) | DRG 190 ==
LOC: HO.ED 21:41 → HO.EDOVER 22:37 → HO.IMC 23:08
PROVIDERS: Admitting Provider Internal Medicine; Emergency Provider Emergency Medicine; Visit Provider Family Medicine
DX: I21.4 Non-ST elevation (NSTEMI) myocardial infarction (principal); G47.30 Sleep apnea, unspecified; J45.909 Unspecified asthma, uncomplicated; Z20.822 Contact with and (suspected) exposure to COVID-19; Z99.89 Dependence on other enabling machines and devices; Z91.19 Patient's noncompliance with other medical treatment and regimen; Z87.891 Personal history of nicotine dependence; Z88.0 Allergy status to penicillin; Z88.6 Allergy status to analgesic agent; Z79.899 Other long term (current) drug therapy
CPT/HCPCS: 36415; 71046; 80048; 80053; 84484; 85025; 85379; 85610; 85730; 87635; 93005; 93306; 99285; J2270; Q9957

== ENCOUNTER → 2021-08-27 14:28 | Outpatient (BNVA) | payer OTHER, SELFPAY | PROVIDERS: Visit Provider Internal Medicine Cardiovascular Disease | DX: I42.9 Cardiomyopathy, unspecified (principal) | CPT/HCPCS: 99212 ==

== ENCOUNTER 2021-10-29 11:51 | Outpatient (REF) | payer OTHER, SELFPAY ==
[2021-10-29 13:09] LABS: Anion Gap 10 (12-20); Blood Urea Nitrogen 10 mg/dL (9-16); Calcium 9.3 mg/dL (8.4-10.2); Carbon Dioxide 27 mmol/L (22-29); Chloride 105 mmol/L (96-108); Estimated Glomerular Filt Rate > 60; Glucose Random 129 mg/dL (60-115); Sodium 138 mmol/L (135-145)
== END 2021-10-29 11:52 | disposition home or self-care (01) ==
LOC: HO.LAB 11:51
PROVIDERS: Visit Provider Internal Medicine Cardiovascular Disease
DX: I42.9 Cardiomyopathy, unspecified (principal)
CPT/HCPCS: 36415; 80048

== ENCOUNTER → 2021-11-14 08:57 | Outpatient (BNVA) | payer OTHER, SELFPAY | PROVIDERS: Visit Provider Internal Medicine Cardiovascular Disease | DX: I42.9 Cardiomyopathy, unspecified (principal) | CPT/HCPCS: 99212 ==

== ENCOUNTER → 2021-11-21 09:54 | Outpatient (BNVA) | payer OTHER, SELFPAY | PROVIDERS: PCP Physician Assistant; Referring Provider Physician Assistant; Visit Provider Internal Medicine Cardiovascular Disease ==

== ENCOUNTER → 2021-12-03 09:01 | Outpatient (BNVA) | payer OTHER, SELFPAY | PROVIDERS: PCP Physician Assistant; Referring Provider Physician Assistant; Visit Provider Internal Medicine Cardiovascular Disease | DX: Z79.899 Other long term (current) drug therapy (principal) | CPT/HCPCS: 99211 ==

== ENCOUNTER → 2022-01-14 09:48 | Outpatient (BNVA) | payer OTHER, SELFPAY | PROVIDERS: PCP Physician Assistant; Visit Provider Physician Assistant Surgical | DX: Z13.89 Encounter for screening for other disorder (principal) ==

== ENCOUNTER → 2022-01-28 10:44 | Outpatient (BNVA) | payer OTHER, SELFPAY | PROVIDERS: PCP Physician Assistant; Visit Provider Physician Assistant Surgical | DX: Z13.89 Encounter for screening for other disorder (principal) ==

== ENCOUNTER → 2022-02-04 09:06 | Outpatient (BNVA) | payer OTHER, SELFPAY | PROVIDERS: PCP Physician Assistant; Referring Provider Physician Assistant; Visit Provider Physician Assistant Surgical | DX: Z13.89 Encounter for screening for other disorder (principal) ==

== ENCOUNTER 2022-02-18 09:06 | Outpatient (REF) | payer OTHER, SELFPAY ==
[2022-02-18 12:06] LABS: MANUAL DIFF FLAG NO
[2022-02-18 12:13] LABS: Basophils Percent Auto 0.3 % (0-2); Eosinophils Absolute Auto 0.1 X10*3/uL (0.0-0.4); Eosinophils Percent Auto 1.3 % (0-4); Hematocrit 52.7 % (42.0-52.0); Hemoglobin 16.9 g/dl (14.0-18.0); Imm Gran Abs Auto 0.02 X10*3/uL (0.00-0.03); Imm Gran Pct Auto 0.3 % (0.0-0.4); Lymphocytes Absolute Auto 1.9 X10*3/uL (1.2-4.9); Lymphocytes Percent Auto 27.3 % (20-40); Mean Corpuscular HGB Conc 32.1 g/dl (31.0-36.0); Mean Corpuscular Hemoglobin 27.7 pg (27.0-33.0); Mean Corpuscular Volume 86.3 fL (80.0-98.0); Mean Platelet Volume 10.7 fL (9.4-12.4); Monocytes Absolute Auto 0.7 X10*3/uL (0.1-1.2); Monocytes Percent Auto 9.9 % (2-11); Neutrophils Absolute Auto 4.3 x10*3/uL (2.0-8.3); Neutrophils Percent Auto 60.9 % (45-73); Platelet Count 244 X10*3/uL (160-400); Red Blood Count 6.11 X10*6/uL (4.60-5.80); Red Cell Distribution Width 14.5 % (11.0-16.0)
[2022-02-18 12:35] LABS: Estimated Average Glucose 126 mg/dL
[2022-02-18 12:39] LABS: Anion Gap 14 (12-20); Blood Urea Nitrogen 12 mg/dL (9-16); Carbon Dioxide 26 mmol/L (22-29); Chloride 105 mmol/L (96-108); Potassium 4.2 mmol/L (3.3-5.1); Sodium 141 mmol/L (135-145)
[2022-02-18 12:40] LABS: Alanine Aminotransferase 31 U/L (0-40); Albumin Level 4.4 g/dL (3.5-5.0); Alkaline Phosphatase 98 U/L (39-117); Aspartate Amino Transferase 24 U/L (5-37); Bilirubin Total 0.7 mg/dL (0.0-1.0); Calcium 9.4 mg/dL (8.4-10.2); Cholesterol 142 mg/dL; Estimated Glomerular Filt Rate > 60; Glucose Random 103 mg/dL (60-115); HDL Cholesterol 27 mg/dL; Iron 62 mcg/dL (45-160); LDL Cholesterol Calculated 97 mg/dl; Percent Iron Saturation 19 % (15-50); Total Iron Binding Capacity 329 mcg/dL (228-428); Total Protein 8.2 g/dL (6.5-8.0); Triglycerides 90 mg/dL; Unsaturated Iron Binding 267 ug/dL
[2022-02-18 13:00] LABS: Ferritin 86 ng/mL (20-250); TSH reflex Free T4 5.32 uIU/mL (0.32-4.0); Vitamin D 25-OH Total 15.2 ng/mL (>30)
[2022-02-18 13:35] LABS: Folate 10.7 ng/mL (> or = 4.0); Vitamin B12 366 pg/mL (200-900)
[2022-02-18 13:36] LABS: Free T4 (Free Thyroxine) 0.89 ng/dL (0.71-1.85)
[2022-02-19 14:47] LABS: Calcium (PTHI) 9.2 mg/dL (8.6-10.3); PTHI 92 pg/mL (16-77)
[2022-02-21 05:32] LABS: Zinc 106 mcg/dL (60-130)
[2022-02-21 11:38] LABS: H Pylori Breath Test Negative (Negative)
[2022-02-22 01:11] LABS: Vitamin A 32 mcg/dL (38-98)
[2022-02-24 12:35] LABS: Vitamin B1 <6 nmol/L (8-30)
== END 2022-02-18 09:07 | disposition home or self-care (01) ==
LOC: HO.LAB 09:06
PROVIDERS: Absent Provider Surgery; PCP Physician Assistant; Referring Provider Physician Assistant; Visit Provider Physician Assistant Surgical
DX: E66.01 Morbid (severe) obesity due to excess calories (principal); Z68.43 Body mass index [BMI] 50.0-59.9, adult; K21.9 Gastro-esophageal reflux disease without esophagitis; G47.30 Sleep apnea, unspecified
CPT/HCPCS: 36415; 80053; 80061; 82306; 82607; 82728; 82746; 83013; 83036; 83540; 83970; 84425; 84439; 84443; 84590; 84630; 85025; 86140; 99211; 99212

== ENCOUNTER 2022-04-18 07:30 | Outpatient (REF) | payer OTHER, SELFPAY ==
--- NOTE | ~2022-04-18 | US_ITS ---
EXAMINATION: US COMPLETE ABDOMEN WITH LIVER ELASTOGRAPHY CLINICAL INFORMATION: Bariatric service evaluation. COMPARISON: None. TECHNIQUE: Real-time imaging of the abdominal viscera. Noninvasive ultrasound liver fibrosis assessment is performed using Honey ElastPQ point quantification shear wave elastography (2D-SWE) with a C5-2 MHz transducer. Multiple elastography samples are obtained. FINDINGS: PANCREAS: The visualized pancreas is normal in size and contour and echogenicity. No pancreatic ductal distention. Pancreatic tail obscured by bowel gas and not completely imaged. ABDOMINAL AORTA: The proximal, middle, and distal aortic segments are normal in caliber. INFERIOR VENA CAVA: Visualized portions are normal. LIVER: The liver is mildly enlarged. The liver surface is smooth. Parenchyma shows mild increased echogenicity consistent with hepatic steatosis. There is no focal hepatic parenchymal lesion or intrahepatic ductal dilatation. The right lobe measures 22.1 cm in length. The left lobe measures 14.1 cm in length. Portal flow is towards the liver (hepatopetal). Shear wave liver elastography median stiffness is 1.64 m/s (reference: normal median stiffness is 1.3 m/s or less). IQR/median stiffness to assess sampling precision is 0.14 (reference: good quality data set is IQR/median stiffness of 0.15 or less). GALLBLADDER: There are mobile stones in the gallbladder, largest approximately 2.4 cm in diameter. There is no gallbladder wall thickening or pericholecystic fluid. Sonographic Elizabeth's sign negative, no pain. COMMON BILE DUCT: Normal in caliber measuring 0.6 cm in diameter. No visible ductal calculus. RIGHT KIDNEY: Right kidney measures 14.6 cm in length. There is normal renal parenchymal thickness and echogenicity. Mild hydronephrosis is present. There are some specular echoes suggesting nonobstructing intrarenal calculi, to lower pole measuring 1.4 x 0.5 cm and 0.9 x 0.4 cm, respectively. Cursory view of the bladder shows no bladder calculus. There is a left ureteral jet but no right ureteral jet. LEFT KIDNEY: Normal. No hydronephrosis. No renal calculi or focal parenchymal lesions. The kidney measures 13.9 cm in maximum dimension. SPLEEN: Normal. The spleen measures 12.6 cm in maximum dimension. FREE FLUID: None. Results called to provider NICOLE Carver on 04/19/2022. US/US abdomen comp w elastography IMPRESSION: 1. Mild right hydronephrosis. Nonobstructing intrarenal lower pole calculi 1.4 cm and 0.9 cm. Level of obstruction is not determined by the ultrasound exam. Left kidney unremarkable. 2. Cholelithiasis. No biliary ductal dilatation. 3. Liver mildly enlarged, hepatic steatosis. Liver elastography: In the absence of other known clinical signs, measurements rule out compensated advanced chronic liver disease. If there are known clinical signs, further testing may be needed for confirmation. REFERENCE: Society of Radiologists in Ultrasound Liver Stiffness Thresholds (2020): LIVER STIFFNESS THRESHOLDS: *Liver Stiffness equal or less than 1.3 m/s: High probability of being normal. *Liver Stiffness less than 1.7 m/s: In the absence of other known clinical signs, rules out compensated advanced chronic liver disease. *Liver Stiffness 1.7-2.1 m/s: Suggestive of compensated advanced chronic liver disease but need further test for confirmation. *Liver Stiffness over 2.1 m/s: Rules in compensated advanced chronic liver disease. *Liver Stiffness over 2.4 m/s: Suggestive of clinically significant portal hypertension. QUALITY OF DATA SET: *IQR/Median value equal or less than 0.15 implies a quality data set. *IQR/Median value over 0.15 implies a poor quality data set. SIGNIFICANT CHANGE FROM PRIOR EXAM: Significant change if liver stiffness measurement is 10% or greater from prior exam. OTHER CONSIDERATIONS: The stage of liver fibrosis may be overestimated in the setting of acute hepatitis, liver inflammation, elevated liver function tests, hepatic vascular congestion, obstructive cholestasis, non-fasting state, and infiltrative diseases such as amyloidosis and lymphoma. In some patients with NAFLD, the liver stiffness thresholds for compensated advanced chronic liver disease may be lower. In causes other than viral hepatitis and NAFLD, liver stiffness thresholds are not well established.
--- NOTE | ~2022-04-18 | FL_ITS ---
EXAMINATION: XR FLUOROSCOPY UPPER GI WITH AIR CLINICAL INFORMATION: Morbid/severe obesity due to excess calories. COMPARISON: None. TECHNIQUE: Routine upper GI air-contrast study was performed in upright and lying position. FINDINGS: Following the administration of thick barium, there is normal propagation of bolus from the oral cavity through the pharynx and esophagus and into the stomach without any evidence of obstruction, narrowing or stricture. No extrinsic compression seen. On placing patient supine and prone lying, the course and caliber of the stomach, duodenal bulb and the sweep are normal. The mucosal pattern of stomach and the duodenum is normal. There is no gastroesophageal reflux or hiatal hernia. FLUOROSCOPY TIME: 1.6 minutes. DOSE AREA PRODUCT: 64.092 uGy-m2 (microgray-meter squared). FL/FL upper GI w air IMPRESSION: Unremarkable upper GI air-contrast study.
== END 2022-04-18 07:31 | disposition home or self-care (01) ==
LOC: HO.US 07:30
PROVIDERS: Visit Provider Physician Assistant Surgical
DX: Z01.818 Encounter for other preprocedural examination (principal); E66.01 Morbid (severe) obesity due to excess calories; K21.9 Gastro-esophageal reflux disease without esophagitis
CPT/HCPCS: 74246; 76705; 76981

== ENCOUNTER → 2022-06-04 08:46 | Outpatient (BNVA) | payer OTHER, SELFPAY | PROVIDERS: Visit Provider Internal Medicine Cardiovascular Disease | DX: I42.9 Cardiomyopathy, unspecified (principal); Z79.899 Other long term (current) drug therapy | CPT/HCPCS: 99212 ==

== ENCOUNTER → 2022-06-17 10:11 | Outpatient (BNVA) | payer OTHER, SELFPAY | PROVIDERS: Visit Provider Dietitian, Registered | DX: E66.01 Morbid (severe) obesity due to excess calories (principal); Z71.3 Dietary counseling and surveillance | CPT/HCPCS: 97802 ==

== ENCOUNTER → 2022-07-22 10:17 | Outpatient (BNVA) | payer OTHER, SELFPAY | PROVIDERS: Referring Provider Physician Assistant Surgical; Visit Provider Dietitian, Registered | DX: E66.01 Morbid (severe) obesity due to excess calories (principal) | CPT/HCPCS: 97803 ==

== ENCOUNTER → 2023-04-14 09:45 | Outpatient (REF) | payer OTHER, SELFPAY ==
--- NOTE | 2023-04-14 09:49 | CA_ITS ---
Transthoracic Echocardiogram Patient (Last, First, Middle): Trino Pink, Gender: Male Date of : 1980 Age: 42 Procedure Date: 04/14/2023 Procedure Type: Transthoracic Echocardiogram Location: OP Height: 177.8 cm Weight: 163.3 kg BSA: 2.68 m2 Heart Rate: 80 bpm BP: 135 / 92 mmHg Furniture Cleaner: ELENO Referring MD: Kush Alvarez MD Symptoms: I42.9 - Cardiomyopathy, unspecified Study Quality: Adequate w contrast ECG Rhythm: Sinus Conclusions: - Difficult to assess LVEF and wall motion in spite of contrast use. Possibly mildly reduced with LVEF 40-50%. - No obvious valvular pathology seen on this study. Findings Procedure Information Contrast agent, definity, is being given per protocol without apparent complications. Left Ventricle Normal left ventricular cavity size. There is mildly increased left ventricular wall thickness. Regional wall motion abnormalities can not be excluded due to suboptimal endocardial definition. Diastolic function is indeterminate on the basis of available data. Difficult to assess LVEF and wall motion in spite of contrast use. Possibly mildly reduced with LVEF 40 50%. Right Ventricle Normal right ventricular cavity size and systolic function. Atria Both atria are normal in size. Aortic Valve The aortic valve was not well visualized. There is no aortic valve stenosis. There is no aortic valve regurgitation. Mitral Valve The mitral valve was not well visualized. There is no mitral valve regurgitation. There is no mitral valve stenosis. Pulmonic Valve The pulmonic valve is likely normal. Tricuspid Valve There is no tricuspid valve regurgitation. Tricuspid regurgitation envelope is inadequate for calculation of right ventricular systolic pressure. Great Vessels The asc aorta is normal in size. Venous The inferior vena cava was not well visualized. Pericardium/Pleural There is no evidence of pericardial effusion. Prior Study Comparison No significant change compared to prior study dated: 08/06/2021. Recommendations, Care & Conclusions No obvious valvular pathology seen on this study. Measurements 2D Linear Measurements IVSd: 1.10 0.6-0.9/0.6-1.0 cm LVIDd: 4.80 3.9-5.3/4.2-5.9 cm LVIDd Index: 1.79 2.4-3.2/2.2-3.1 cm/m2 LVIDs: 3.80 2.0-3.6 cm LVPWd: 1.20 0.7-1.1 cm LA Diam: 4.10 2.7-3.8/3.0-4.0 cm LAIDs Index: 1.53 1.5-2.3 cm/m2 LV Mass: 257.21 67-162/88-224 g LV Mass Index: 95.97 43-95/49-115 g/m2 LVOT Diam: 2.30 3.0+(-)1.3 cm 2D Systolic Function EF 4C: 64.30 >55% EF 2C: 63.20 >55% Mitral Valve MV Pk E: 0.57 MV PK A: 0.61 MV Decel Time: 224.00 E/A: 0.90 E'Lateral: 8.16 E'Medial: 6.85 E/E' Med: 8.30 E/E' Lat: 6.90 PHT: 66.00 MVA PHT: 3.33 [place]: 2.53 Aortic Valve AoV Pk Dewey: 1.05 AoV Mn Dewey: 0.72 AoV VTI: 0.22 AoV Pk Grad: 4.00 Aov Mn Grad: 2.00 OMKAR Cont.VTI: 2.63 LVOT LVOT Pk Dewey: 0.63 LVOT Mn Dewey: 0.41 LVOT VTI: 0.14 LVOT Pk Grad: 2.00 LVOT Mn Grad: 1.00 LVOT Diam: 2.30 LVOT Area: 4.15 Diastolic Function MV Pk E: 0.57 MV Pk A: 0.61 E/A: 0.90 E'Medial: 6.85 E/E' Med: 8.30 E' Laterial: 8.16 E/E' Lat: 6.90 Right Ventricle TAPSE (mm): 25.70 TVS' Dewey: 13.90 Great Vessels Aorta Ao Asc: 3.20 2.1-3.4 cm Updated in Other Vendor System with Status of Final Romero Nilesen MD electronically signed on 04/14/2023 12:40:39 PM with status of Final
== END ==
LOC: HO.CARD 09:45
PROVIDERS: Visit Provider Internal Medicine Cardiovascular Disease
DX: I42.9 Cardiomyopathy, unspecified (principal)
CPT/HCPCS: 93306; Q9957

== ENCOUNTER → 2023-04-14 09:49 | Outpatient (BNV) | payer OTHER, SELFPAY | PROVIDERS: Visit Provider Internal Medicine | DX: I42.9 Cardiomyopathy, unspecified (principal) | CPT/HCPCS: 93306 ==

== ENCOUNTER 2023-05-27 09:19 | Outpatient (AMB) | payer OTHER, SELFPAY ==
[2023-05-27 09:38] VITALS: BP 120/70; PULSE 81; BMI 54.0
--- NOTE | 2023-05-27 09:38 | MHC.OFFVIS ---
Intake Vital Signs 05/27/23 09:38 Height 5 ft 9 in Weight 365 lb 15.477 oz BMI 54.0 BP 120/70 Blood Pressure Location Lt brachial Position Sitting Pulse 81 Intake Visit Reasons: 1 yr f/up echo Intake Note: 1 year follow-up after echo with ekg feeling good Phosphoric Acid Supervisor Required: Yes Phosphoric Acid Supervisor Name: Leanna benoit Furniture Dipper: Furniture Dipper Present Accompanied by: Spouse Allergies Aspirin Allergy (Unknown, Uncoded 08/05/21 17:55) swelling Penicillin Allergy (Unknown, Uncoded 08/05/21 17:55) swelling Medication List - Last Reconciled 05/27/23 by Ksuh Alvarez MD levothyroxine 25 mcg PO DAILY metoprolol succinate ER 50 mg PO DAILY valsartan 80 mg PO DAILY HPI HPI Comments History of Present Illness Details Trino comes for follow-up. History was obtained with help of compliance lead. He is accompanied by his . He denies any new cardiac symptoms. He however does not currently use CPAP machine because of mask issues. Currently does not see sleep specialist. He is taking all his medications. Denies worsening shortness of breath, orthopnea, PND, leg edema. Denies any chest discomfort. Most recent echocardiogram shows persistent LV systolic dysfunction with LVEF of 40-50%. He is currently being evaluated by bariatric surgery to consider surgical intervention for his obesity. [facility] Medical History Acute non-ST elevation myocardial infarction (NSTEMI) GERD (gastroesophageal reflux disease) Sleep apnea with use of continuous positive airway pressure (CPAP) Morbid obesity Surgical History History of kidney surgery Family History Father Coronary artery disease Diabetes Hypertension Mother Asthma Sister No problems noted. Sister No problems noted. Sister No problems noted. Sister No problems noted. Sister No problems noted. Brother No problems noted. Brother No problems noted. Son No problems noted. Daughter No problems noted. Social History Household Members: Spouse Housing: House Do you presently have visiting nurse or other home services: No Alcohol intake: never Patient Tobacco Use Status: Former Tobacco user service: No Review of Systems Const Denies chills, Denies fatigue, Denies fever(s), Denies frequent falls, Denies weakness, Denies weight gain and Denies weight loss ENT Denies dizziness Card Denies chest pain, Denies leg edema, Denies lightheadedness, Denies palpitations, Denies dyspnea, Denies dyspnea on exertion, Denies orthopnea and Denies other (loss of consciousness) Resp Denies cough, Denies dyspnea and Denies dyspnea on exertion GI Denies hematochezia and Denies change in stool character Musc Denies abnormal gait, Denies muscle weakness, Denies numbness, Denies radiating pain into limb and Denies tingling Neuro Denies abnormal gait, Denies dizziness, Denies frequent falls, Denies numbness, Denies tingling and Denies weakness Endo Denies fatigue and Denies palpitations Physical Exam Vital Signs: Last Vital Signs Pulse 81 05/27/23 09:38 BP 120/70 05/27/23 09:38 BMI result Body Mass Index 54.0 Last Vital Signs Temp 98.0 F 08/06/21 07:23 Pulse 75 08/06/21 07:23 Resp 20 08/06/21 07:23 BP 115/66 08/06/21 07:23 Pulse Ox 91 L 08/06/21 07:23 Body Mass Index 47.2 Const General: cooperative, comfortable, no acute distress, alert and awake Nutritional Appearance: obese morbidly obese Orientation/consciousness: patient oriented x3 Limitations: no limitations Neck Neck: Yes trachea midline, Yes supple and Yes no JVD Chest Chest palpation & inspection: normal inspection of the chest Resp Effort & Inspection: normal respiratory effort Auscultation: clear to auscultation bilaterally Cardio Jugular venous distension: no JVD Palpation: normal PMI Rate: regular rate Rhythm: regular rhythm Heart sounds: S1 normal heart sound present, S2 normal heart sound present, no click, no gallops, no murmurs and no rubs GI Inspection: Yes Abdominal panniculus present and Yes obesity Auscultation: normal bowel sounds Skin General skin exam: no rashes or lesions noted Neuro General: patient oriented x3 and no focal motor deficits Extrem General: Yes no clubbing, cyanosis or edema Psych Appearance: grossly normal Office Procedures EKG Details: EKG shows normal sinus rhythm with normal EKG [id number], Complete Assessment & Plan Assessment & Plan (1) Cardiomyopathy: Code(s): I42.9 - Cardiomyopathy, unspecified Plan: Patient with persistent LV systolic dysfunction with [id number] LV systolic dysfunction with prior history of myocarditis. No signs or symptoms of heart failure at current time. Continue neurohormonal modulation will change valsartan to Entresto therapy to improve outcomes and avoid hospitalizations. This was discussed with him. Follow-up blood pressure check in 2 weeks time along with blood work. Continue metoprolol therapy. Importance of CPAP therapy was discussed with him. Will refer him to sleep specialist for the same. Also participate in aggressive weight loss program will help him with his sleep apnea as well as cardiomyopathy process. Will follow up in the clinic in 1 year's time, sooner p.r.n.. Thank you for allowing me to partake in his care Orders: Orders Basic Metabolic Panel 2 Weeks I42.9 - Cardiomyopathy, unspecified Referrals Sleep Medicine Referral G47.30 - Sleep apnea, unspecified Medications: New sacubitril-valsartan 24-26 mg (Entresto) 1 tab PO BID 60 tabs 5RF Discontinued valsartan Discontinued Reason: Doctor's Order 80 mg PO DAILY 30 tabs 5RF Coding Level of Care Code Est Pt Level 4 (39695) Diagnoses Cardiomyopathy I42.9 CPT Codes EKG - CPT: 07237-[id number], Complete ([id number])
== END 2023-05-27 10:03 | disposition home or self-care (01) ==
PROVIDERS: Visit Provider Internal Medicine Cardiovascular Disease
DX: I42.9 Cardiomyopathy, unspecified (principal)
CPT/HCPCS: 93010; 99214

== ENCOUNTER → 2023-05-27 09:19 | Outpatient (BNVA) | payer OTHER, SELFPAY | PROVIDERS: Visit Provider Internal Medicine Cardiovascular Disease | DX: I42.9 Cardiomyopathy, unspecified (principal); Z79.899 Other long term (current) drug therapy | CPT/HCPCS: 93005; 99212 ==

== ENCOUNTER → 2023-06-16 08:55 | Outpatient (BNVA) | payer OTHER, SELFPAY | PROVIDERS: Visit Provider Internal Medicine Cardiovascular Disease ==

== ENCOUNTER 2023-08-27 09:32 | Outpatient (AMB) | payer OTHER, SELFPAY ==
--- NOTE | 2023-08-27 10:01 | MHC.OFFVIS ---
Intake Vital Signs 08/27/23 10:02 Height 5 ft 9 in Weight 371 lb BMI 54.8 BP 122/84 Blood Pressure Location Lt brachial Position Sitting Respiration 17 Pulse 81 Pulse Source Pulse Oximeter Pulse Oximetry (%) 94 Oxygen Delivery Method Room Air Intake Visit Reasons: INP- GIBSON-Confirmed Intake Note: Pt presents for new pt evaluation for GIBSON. Pt reports hes had the same CPAP machine for over 5 years and is in need of new equipment. Steel Erector Required: No Allergies Aspirin Allergy (Unknown, Uncoded 08/27/23 10:01) swelling Penicillin Allergy (Unknown, Uncoded 08/27/23 10:01) swelling HPI HPI Comments History of Present Illness Details 43 y/o male patient presents for new in-person visit to manage sleep apnea. Pt was diagnosed with GIBSON about 5 years ago and has been using CPAP. He has not received supplies and uses his mask, and it does not fit for him. He stopped using his CPAP. His home care company is [employer]. He gained wt about 30 lb since the last sleep study, and he in processing for bariatric surgery. Sleep questionnaire: Have you ever been diagnosed with a sleep disorder? Yes. Have you ever had a sleep study in the past? Yes. Have you ever been treated for a sleep disorder? Yes, CPAP. Do you take medications for a sleep disorder? No. Do you snore? Yes. Do you wake up gasping at night? Yes. Do you have episodes of apneas? Yes. If yes, are they witnessed? Yes. Do you have episodes of nocturnal chest pain or dyspnea? Yes. Do you have difficulty initiating sleep? No. Do you have difficulty maintaining sleep? Yes. Do you wake up tired? Yes. Do you have headaches upon awakening? No. Do you wake up with dry mouth or throat? Yes. Do you have GERD? Yes. Do you have nocturia? Yes. Do you have nocturnal leg cramps? No. Do you have symptoms of restless legs? Yes. Do you act out your dreams? Yes. Sleep hygiene questionnaire: What is your usual sleep routine? Usual bedtime is at 11 pm-12 am; Usual wake up time is at 8 am. Do you take naps? No. Is your sleep environment cool, dark, and quiet? Yes. Do you exercise? No. Do you take caffeine or other stimulants? Coffee in the morning and afternoon. Do you use electronics in bed? Yes. What is your work schedule? 9 am-5 pm. Hypersomnolence questionnaire: Do you have daytime tiredness or fatigue? Yes. Do you easily fall asleep when inactive? Yes. Have you ever had episodes of sudden weakness? No. Have you ever had episodes of sudden weakness associated with strong emotions? No. [facility] Medical History Acute non-ST elevation myocardial infarction (NSTEMI) GERD (gastroesophageal reflux disease) Sleep apnea with use of continuous positive airway pressure (CPAP) Morbid obesity Surgical History History of kidney surgery Family History Father Coronary artery disease Diabetes Hypertension Mother Asthma Sister No problems noted. Sister No problems noted. Sister No problems noted. Sister No problems noted. Sister No problems noted. Brother No problems noted. Brother No problems noted. Son No problems noted. Daughter No problems noted. Social History Household Members: Spouse Housing: House Do you presently have visiting nurse or other home services: No Alcohol intake: never Patient Tobacco Use Status: Former Tobacco user service: No Review of Systems Const All systems reviewed & are unremarkable except as noted in HPI and below Physical Exam Vital Signs: Last Vital Signs Pulse 81 08/27/23 10:02 Resp 17 08/27/23 10:02 BP 122/84 08/27/23 10:02 Pulse Ox 94 08/27/23 10:02 Oxygen Delivery Method Room Air 08/27/23 10:02 BMI result Body Mass Index 54.8 Const General: cooperative Nutritional Appearance: obese Orientation/consciousness: patient oriented x3 Limitations: language barrier Neck Neck: Yes full ROM and Yes supple Resp Effort & Inspection: normal respiratory effort and able to speak in complete sentences Neuro General: patient oriented x3 Assessment & Plan Assessment & Plan (1) Morbid obesity with BMI of 50.0-59.9, adult: Code(s): E66.01 - Morbid (severe) obesity due to excess calories; Z68.43 - Body mass index [BMI] 50.0-59.9, adult (2) Sleep apnea with use of continuous positive airway pressure (CPAP): Code(s): G47.30 - Sleep apnea, unspecified Plan Pt is advised to undergo in lab sleep study to assess for sleep apnea. Will f/u with pt after study to discuss results and appropriate treatment options. New CPAP supply prescription given to patient. Wt reduction advised and sleep hygiene education provided. Pt to call with any worsening concerns or questions. Orders: Orders RT PSG in-lab sleep study Today E66.01 - Morbid (severe) obesity due to excess calories, G47.30 - Sleep apnea, unspecified, I42.9 - Cardiomyopathy, unspecified, Z68.43 - Body mass index [BMI] 50.0-59.9, adult Coding Level of Care Code New Pt Level 3 (98918) Diagnoses Morbid obesity with BMI of 50.0-59.9, adult E66.01; Z68.43 Sleep apnea with use of continuous positive airway pressure (CPAP) G47.30
[2023-08-27 10:02] VITALS: BP 122/84; PULSE 81; RESP 17; O2SAT 94; BMI 54.8
== END 2023-08-27 10:40 | disposition home or self-care (01) ==
PROVIDERS: Visit Provider Nurse Practitioner Family
DX: E66.01 Morbid (severe) obesity due to excess calories (principal); Z68.43 Body mass index [BMI] 50.0-59.9, adult; G47.30 Sleep apnea, unspecified
CPT/HCPCS: 99203

== ENCOUNTER → 2023-08-27 09:32 | Outpatient (BNVA) | payer OTHER, SELFPAY | PROVIDERS: Visit Provider Nurse Practitioner Family | DX: G47.30 Sleep apnea, unspecified (principal); E66.01 Morbid (severe) obesity due to excess calories; Z68.43 Body mass index [BMI] 50.0-59.9, adult | CPT/HCPCS: 99202 ==

== ENCOUNTER → 2023-09-17 19:30 | Outpatient (REF) | payer OTHER, SELFPAY | LOC: HO.SL 19:30 | PROVIDERS: Visit Provider Nurse Practitioner Family | DX: G47.33 Obstructive sleep apnea (adult) (pediatric) (principal); I42.9 Cardiomyopathy, unspecified; E66.01 Morbid (severe) obesity due to excess calories; Z68.43 Body mass index [BMI] 50.0-59.9, adult | CPT/HCPCS: 95810 ==

== ENCOUNTER → 2023-09-17 21:01 | Outpatient (BNV) | payer OTHER, SELFPAY | PROVIDERS: Visit Provider Psychiatry & Neurology Neurology | DX: G47.33 Obstructive sleep apnea (adult) (pediatric) (principal) | CPT/HCPCS: 95810 ==

== ENCOUNTER → 2024-11-22 09:42 | Outpatient (BNVA) | payer OTHER, SELFPAY | PROVIDERS: Visit Provider Physician Assistant Surgical ==

== ENCOUNTER 2024-11-25 07:52 | Outpatient (AMB) | payer OTHER, SELFPAY ==
--- OUTSIDE RECORDS SUMMARY | 2024-11-25 07:54 | XMS_ITS | Clinical Summary ---
Author Organization [facility] Address [address] [place] [address] Care Team Providers Care Reprographics Associate Name Role Phone Heber Benson Primary Care Provider [phone] Source Comments PLEASE NOTE, if this patient is a minor, it may be UNLAWFUL to discuss sensitive information that is contained in these records (such as FAMILY PLANNING, MENTAL HEALTH or SUBSTANCE ABUSE) with the minor patient's parent or other person without the patient's specific authorization.[facility] Allergies Active Allergy Reactions Criticality Noted Date Comments Aspirin 05/27/2022 Aspirin, Buffered Other (See Comments) High 09/03/20 17 Penicillins 09/03/2017 Medications atorvastatin (LIPITOR) 40 mg tablet 08/08/2021 Active metoprolol tartrate (LOPRESSOR) 25 mg tablet 08/08/2021 Active NIFEdipine (ADALAT CC) 30 mg 24 hr tablet 08/08/2021 Act jimmie clopidogreL (PLAVIX) 75 mg tablet 08/08/2021 Active valsartan (DIOVAN) 80 mg tablet Take 80 mg by mouth once daily 03/24/2022 Active metoprolol succinate XL (TOPROL-XL) 50 mg 24 hr tablet TOME MIGUEL TABLETA TODOS LOS D 09/26/2022 Active levothyroxine (SYNTHROID, LEVOXYL) 25 mcg tabletIndication s:Hypothyroidism , unspecified type TOME MIGUEL TABLETA TODOS LOS CHILDRESS 84 Tablet 1 11/24/2023 Active Active Problems Problem Noted Date Diagnosed Date Severe obesity (BMI 35.0-35.9 with comorbidity) ([facility]) 05/27/2022 ASCVD (arteriosclerotic cardiovascular disease) 08/29/2021 Overview (08/29/2021): Cardiac catheter underwent August 09. Immunizations Name Administration Dates Next Due Flu, Preservative Free 09/22/2017 Moderna COVID-19 Vaccine, re d cap blue label, 12+ Primary Series 03/12/2021,12/26/2020 TDAP 09/22/2017 Social History Tobacco Use Types Packs/Day Years Used Date Smoking Tobacco: Former Smokeless Tobacco: Never Tobacco Cessation:Counseling Given: Not Answered Alcohol Use Standard Drinks/Week Comments Not Currently 0 (1 standard drink = 0.6 oz pur e alcohol) Social Connections Answer Date Recorded Connectedness 0 12/18/2022 Financial Resource Strain Answer Date R ecorded Financial Resource Strain 0 2022 Stress Answer Date Recorded Stress 0 12/18/2022 Physical Activity Answer Date Recorded Physical Activity 0 05/09/2019 Food Insecurity Answer Date Recorded Food 0 12/18/2022 Transportation Needs Answer Date Record ed Transportation 0 12/18/2022 Housing Stability Answer Date Recorded Housing 0 12/18/2022 Safety and Environment Answer Date Jenaro rded Safety 0 12/18/2022 Utilities Answer Date Recorded Utilities 0 12/18/2022 Employment Answer Date Recorded Employment 0 05/09/2019 Sex and Gender Information Value Date Recorded Sex Assigned at Male 09/03/2017 8:01 AM PST Legal Sex Male 9:14 AM PDT Gender Identity Male 09/03/2017 8:01 AM PST Sexual Orientation Straight 09/03/2017 8: 01 AM PST Last Filed Vital Signs Vital Sign Reading Time Taken Comments Blood Pressure 120/88 12/18/2022 4:34 PM EDT Pulse 96 12/18/2022 4:34 PM EDT Temperature 36.7 ??C (98 ??F) 12/18/2022 4:34 PM EDT Respiratory Rate 20 12/18/2022 4:34 PM EDT Oxygen Saturation 97% 12/18/2022 4:34 PM EDT Inhaled Oxygen Concentration - - Weight 161.9 kg (357 lb) 12/18/2022 4:34 PM EDT Height 177.8 cm (5' 10 ) 12/18/2022 4:34 PM EDT Body Mass Index 51.22 12/18/2022 4:34 PM EDT Plan of Treatment Health Maintenance Due Date Last Done Comments Tobacco Screening 1982 Imm-Hepatitis B (1 of 3 - 19 + 3-dose series) 2001 Annual Preventive Care Visit 05/27/2023 05/27/2022, 09/03/2017 Lipid Screening 05/27/2023 05/27/2022, 08/15, 09/09/2017 TSH Monitoring 05/27/2023 05/27/2022 Hypertension Screening (#1) 12/18/2023 [id number] ( season) 2024 021, 12/26/2020 Imm-Influenza (#1) 2024 09/22/2017 Alcohol and Drug Screen 09/15/2024 12/19/19 23, 12/18/2022, 05/27/2022, Additional history exists Depression Annual Screen 09/15/2024 12/18/2022, 08/16 Diabetes Screening 05/27/2025 05/27/2022, 1 10/30/2020, 09/09/2017 Imm-DTaP/Tdap/Td (2 - Td or Tdap) 09/22/2027 018 HIV Screening Completed 08/29/2021 Hepatitis C Screening Completed 08/29/2021 Procedures Procedure Name Priority Date/Time Associated Diagnosis Comments TSH W/RFLX FREE T4 Routine 05/27/2022 9: 56 AM EDT Severe obesity (BMI 35.0-35.9 with comorbidity) ([facility]) Hypercholesteremia Routine adult health maintenance COMPREHENSIVE METABOLIC PANEL Routine 05/27/2022 9:56 AM EDT Severe obesity (BMI 35.0-35.9 with comorbidity) ([facility]) Hypercholesteremia Routine adult health maintenance LIPID PANEL Routine 05/27/2022 9:56 AM EDT Severe obesity (BMI 35.0-35.9 with comorbidity) ([facility]) Hypercholesteremia Routine adult health maintenance HIV 1/2 AG & AB W/RFLX (4TH GEN) Routine 08/29/2021 3:51 PM EST Exposure to viral hepatitis Exposure to HIV HEPATITIS C AB W/RFLX HCV RNA, QT, RT PCR Routine 08/29/2021 3:51 PM EST Exposure to viral hepatitis from Last 3 Months or Most Recently Relevant to Health Maintenance Results * (ABNORMAL) TSH W/RFLX FREE T4 (05/27/2022 9:56 AM EDT) TSH W/REFLEX TO FT4 6.25(H) 0.40 - 4.50 mIU/L [facility] Blood Blood / Unknown 05/27/2022 9 :56 AM EDT 05/27/2022 9:57 AM EDT [facility] - BLOOD DRAW Final Result [employer] [facility] [address] [address], [employer] [address] [address] * (ABNORMAL) LIPID PANEL (05/27/2022 9:56 AM EDT) CHOLESTEROL, TOTAL 165 <200 mg/dL [facility] HDL CHOLESTEROL 37(L) > OR = 40 mg/dL [facility] TRIGLYCERIDES 118 <150 mg/dL [facility] LDL-CHOLESTEROL 107(H) 99 mg/dL (calc) [facility] Comment: Reference range: <100 Desirable range <100 mg/dL for primary prevention; ?? <70 mg/dL for patients with CHD or diabetic patients with > or = 2 CHD risk factors. LDL-C is now calculated using the Reji calculation, which is a validated novel method providing better accuracy than the Friedewald equation in the estimation of LDL-C. Esau HATFIELD et al. JAYLA. 2013;310(19): 8409-5398 (http://education.Branching Minds/faq/JVM392) CHOL/HDLC RATIO 4.5 <5.0 (calc) [facility] NON-HDL CHOLESTEROL 128 <130 mg/dL (calc) [facility] Comment: For patients with diabetes plus 1 major ASCVD risk factor, treating to a non-HDL-C goal of <100 mg/dL (LDL-C of <70 mg/dL) is considered a therapeutic option. Blood Blood / Unknown 05/27/2022 9 :56 AM EDT 05/27/2022 9:57 AM EDT [facility] - BLOOD DRAW Final Result [employer] [address] [address], [facility] [address] [address] * (ABNORMAL) COMPREHENSIVE METABOLIC PANEL (05/27/2022 9:56 AM EDT) GLUCOSE 100(H) 65 - 99 mg/dL [facility] Comment: ?Fasting reference interval For someone without known diabetes, a glucose value between 100 and 125 mg/dL is consistent with prediabetes and should be confirmed with a follow-up test. UREA NITROGEN (BUN) 15 7 - 25 mg/dL [facility] CREATININE (blood) 0.67 0.60 - 1.29 mg/dL [facility] EGFR 121 > OR = 60 mL/min/1 .73m2 [facility] Comment: The eGFR is based on the CKD-EPI 2020 equation. To calculate the new eGFR from a previous Creatinine or Cystatin C result, go to https://www.kidney.org/professionals/ kdoqi/gfr%5Fcalculator BUN/CREATININE RATIO NOT APPLICABLE 6 - 22 [facility] SODIUM 138 135 - 146 mmol/L [facility] POTASSIUM 4.3 3.5 - 5.3 mmol/L [facility] CHLORIDE 103 98 - 110 mmol/L [facility] CARBON DIOXIDE 29 20 - 32 mmol/L [facility] CALCIUM 9.3 8.6 - 10.3 mg/dL [facility] PROTEIN, TOTAL 8.0 6.1 - 8.1 g/dL [facility] ALBUMIN 4.2 3.6 - 5.1 g/dL [facility] GLOBULIN 3.8(H) 1.9 - 3.7 g/dL (calc) [facility] ALBUMIN/GLOBUL IN RATIO 1.1 1.0 - 2.5 (calc) [facility] BILIRUBIN, TOTAL 0.3 0.2 - 1.2 mg/dL [facility] ALKALINE PHOSPHATASE 82 36 - 130 U/L [facility] AST 16 10 - 40 U/L [facility] ALT 19 9 - 46 U/L [facility] Blood Blood / Unknown 05/27/2022 9 :56 AM EDT 05/27/2022 9:57 AM EDT us [facility] - BLOOD DRAW Edited Result - Final Performing Organization Address [facility] Co de Phone Number [employer] [address] [address], [employer] [address] [address] * HEPATITIS C AB W/RFLX HCV RNA, QT, RT PCR (08/29/2021 3:51 PM EST) HEPATITIS C ANTIBODY NON-REACT JIMMIE NON-REACT JIMMIE [facility] SIGNAL TO CUT-OFF 0.16 <1.00 [employer] [facility] Comment: HCV antibody was non-reactive. There is no laboratory evidence of HCV infection. In most cases, no further action is required. However, if recent HCV exposure is suspected, a test for HCV RNA (test code 52503) is suggested. For additional information please refer to http://education.Sparkroad/faq/FLF64g7 (This link is being provided for informational/ educational purposes only.) Blood Blood / Unknown 08/29/2021 3 :51 PM EST 08/29/2021 3:51 PM EST us [facility] - BLOOD DRAW Final Result Performing Organization Address [facility]/ZIP Co de Phone Number [facility] [address] [address], [employer] [address] [address] * HIV 1/2 AG & AB W/RFLX (4TH GEN) (08/29/2021 3:51 PM EST) HIV AG/AB, 4TH GEN NON-REAC TIVE NON-REAC TIVE [facility] Comment: HIV-1 antigen and HIV-1/HIV-2 antibodies were not detected. There is no laboratory evidence of HIV infection. PLEASE NOTE: This information has been disclosed to you from records whose confidentiality may be protected by state law. ??If your state requires such protection, then the state law prohibits you from making any further disclosure of the information without the specific written consent of the person to whom it pertains, or as otherwise permitted by law. A general authorization for the release of medical or other information is NOT sufficient for this purpose. ?? For additional information please refer to http://education.Sparkroad/faq/WOV460 (This link is being provided for informational/ educational purposes only.) The performance of this assay has not been clinically validated in patients less than 2 years old. Blood Blood / Unknown 08/29/2021 3 :51 PM EST 08/29/2021 3:51 PM EST us [facility] - BLOOD DRAW Final Result [employer] [address] [address], [employer] [address],[facility] [address] from Last 3 Months or Most Recently Relevant to Health Maintenance Insurance [employer] Care Teams Reprographics Associate Relationship Specialty Start Date End Date Heber Benson PA [address] [place] [address] PCP - General Internal Medicine 09/09/17
--- OUTSIDE RECORDS SUMMARY | 2024-11-25 07:54 | XMS_ITS | Clinical Summary ---
Author Organization [employer] Address [address] [place] [address] Care Team Providers Care Food Tray Assembler Name Role Phone Unavailable Primary Care Provider Unavailabl e Encounters Date Type Department Care Team Description 10/11/2024 Telephone [facility] [address] [facility] [place] [address] Laith Richards MD from Last 3 Months Social History Tobacco Use Types Packs/Day Years Used Date Smoking Tobacco: Never Assessed Sex and Gender Information Value Date Recorded Sex Assigned at Male 07/15/2022 10:38 AM EDT Legal Sex Male 10:38 AM EDT Gender Identity Male 07/15/2022 10:38 AM EDT Sexual Orientation Straight 07/15/2022 10 :38 AM EDT Plan of Treatment Health Maintenance Due Date Last Done Comments Depression Screening 1982 Lipid Panel 1982 SDOH Screening 1982 Alcohol/Substance Use Screening 1994 Tobacco Screening 1994 Family Planning (PISQ) 1997 Hepatitis C Screening 2000 Hepatitis B Vaccines (1 of 3 - 19+ 3-dose series) 2001 COVID-19 Vaccine (2023-2 5 season) 2024 03/12/2021, 12/26/2020 Influenza Vaccine (#1) 2024 09/22/2017 DTaP/Tdap/Td Vaccines (2 - T d or Tdap) 09/22/2027 09/22/2017 Zoster Vaccines (1 of 2) 2032 RSV Patients and Patients Aged 60 years or older (1 - 1-dose 75+ series) 2057 HIV Screening Completed 08/29/2021 HIB Vaccines Aged Out No longer eligi ble based on patient's age to complete this topic HPV Vaccines Aged Out No longer eligi ble based on patient's age to complete this topic Hepatitis A Vaccines Aged Out No long er eligible based on patient's age to complete this topic IPV Vaccines Aged Out No longer eligi ble based on patient's age to complete this topic Meningococcal Vaccine Aged Out No norman inessa eligible based on patient's age to complete this topic Pneumococcal Vaccine: Pediatrics (0 to 5 Years) and At-Risk Patients (6 to 49) Years) Aged Out No longer eligible b ased on patient's age to complete this topic RSV under 20 months Aged Out No longe r eligible based on patient's age to complete this topic Rotavirus Vaccines Aged Out No longer eligible based on patient's age to complete this topic Insurance HS PARTIAL
--- NOTE | 2024-11-25 09:49 | A.OFFVIS_ITS ---
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 Required: Yes Truck Guard Services: Truck Guard Present Information Interpreted: clinical only Allergies Aspirin Allergy (Unknown, Uncoded 11/25/24 09:51) swelling Penicillin Allergy (Unknown, Uncoded 11/25/24 09:51) swelling Medication List - Last Reconciled 11/25/24 by Sonido Tovar MD No Known Home Meds HPI HPI 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*: Details: Start time: 9.47am, End time: 10.47am ?I spent 55 minutes speaking with the patient on the phone plus an additional 5 minutes reviewing and updating records for a total of 60 minutes HPI Comments Details: Previous weight loss efforts: WMP program x2 Wakes up: 8am, Sleeps: 12am Breakfast: occasionally instead of lunch Lunch: 12pm (rice, chicken, beans, pork chops) Dinner: 8pm (same as lunch) Snacks: 1-2 snacks between lunch and dinner (sweets, candy, crackers), rarely after dinner Exercise: has a home treadmill Fluids: Coffee 1-2/day (sugar and cream), tea: none, soda: occasionally, juice/ETOH: none PFSH Medical History (Updated 08/27/23 @ 10:18 by Devin Lepe CNP) Acute non-ST elevation myocardial infarction (NSTEMI) GERD (gastroesophageal reflux disease) Sleep apnea with use of continuous positive airway pressure (CPAP) Morbid obesity Surgical History History of kidney surgery Family History Father Coronary artery disease Diabetes Hypertension Mother Asthma Sister No problems noted. Sister No problems noted. Sister No problems noted. Sister No problems noted. Sister No problems noted. Brother No problems noted. Brother No problems noted. Son No problems noted. Daughter No problems noted. Social History (Reviewed 08/27/23 @ 10:02 by FELICIA Owens Household Members: Spouse Housing: House Do you presently have visiting nurse or other home services: No Alcohol intake: never Patient Tobacco Use Status: Former Tobacco user service: No Telehealth Telehealth Telehealth Platform: Telephone Location of provider rendering services: practice address Location of patient: address on file Patient Identification confirmed using: Name, : Yes Telehealth method: voice only Patient verbally consented to treatment: Yes Patient verbally consented to billing insurance company: Yes Patient informed of any privacy concerns related to visit: Yes Minutes spent on Phone/Video with Pt.: 60 Assessment & Plan Assessment & Plan (1) Morbid obesity: Code(s): E66.01 - Morbid (severe) obesity due to excess calories Category: Medical Plan: 1.? Plan for lap sleeve gastrectomy. If diaphragmatic or ventral hernias are present at time of surgery, these will be repaired laparoscopically as well. I emphasized the importance of close follow-up, adherence to instructions and good communication. The surgery does not replace the need to change your lifestlyle which is the cause of the obesity problem. The surgery provides the motivation to try again to change your lifestyle, it reduces the appetite and make the transition to a better lifestyle easier and doubles the amount of weight you would lose compared to doing the lifestyle change without the surgery. You will need to be on a liquid diet with protein shakes for 2 weeks before surgery to maximize weight loss and boost your nutritional status to recover better from surgery and also for the first two weeks after surgery to let the stomach heal before we introduce other foods. After the first 2 weeks we will introduce protein bars and soft foods like scrambled eggs, cottage cheese and yogurt and after the 6th week will introduce meat, fish and cooked vegetables in small amounts. Over time you should be able to eat everything in small amounts. Side effects like nausea, vomiting, heartburn or abdominal pain are not common in the practice unless you are not following in the practice. This operation requires lifetime commitment to following in our practice and communication with me. You will much less weight and experience side effects if you don?t communicate or not following in the practice. Complications are rare and in our practice is about 1/10 of the national average. However, you can develop bleeding that may require transfusion (hasn?t happened for year in the practice), you may from complications (we did not have any deaths in the practice) and infections. Infections are usually a result of breakdown in communication or not understanding or following directions correctly. They are difficult to treat, they can happen during the first 6 weeks, they may require to be in the hospital for weeks or even months, not being able to eat by mouth and you may have drains and surgeries to try and correct the issue. Other risks and complications include possible conversion to an open procedure, leaks, small bowel obstruction, blood clots, cardiac, or pulmonary complications, as retirement complications such as ulcers, insufficient weight loss and vitamin defic iencies. 2.? Nutritional counseling. Start with 2 premade Pure protein (buy at [employer], [employer]) shakes at 9am-11am and 12pm-2pm, 1 Pure protein bar at 3pm-5pm, dinner at 6pm (12 forks of protein and 12 forks of salad/vegetables) and one more protein bar after dinner at 9pm-11pm. So you do 2 protein shakes, 2 protein bars and one meal per day. Meal to include lean meat (beef, fish, pork, turkey, chicken), or romanian yogurt, or egg whites, or beans with a salad with olive oil and fruits (berries, pears, apples, kiwi). Avoid salt, breads, potatoes, rice, pasta, desserts. 3. Each shake would be drunk slowly, like coffee in a period of 2 hours. 4. Cut each bar in 4 pieces and eat each piece in 30min ?to make each bar last 2 hours. 5. I emphasized the importance of measuring accurately the food portion and measure it when serving the food in plate 6. The meal portions include 12 full-size forks of meat and 12 full-size forks of salad. You always eat the meat portion but you can replace up to 6 forks for salad/vegetables with rice, potatoes or pasta, or a fruit ?if you like. The less you do it the better weight loss will be. 7. One full-size fork is what it can be scooped on the fork without falling aside and not what can be bit with the fork. Use regular forks like those you find in a typical restaurant. 8.? Please buy the body composition scale we discussed and send me weight measurements as soon as possible and then once a week. Always include your diet and exercise plan. 9. Start treadmill with an incline of 0.0 and speed of 3.0. Increase incline by 1 every 3 min to a max incline of 6.0, stay 3min at 6.0 and then return to 0.0 and repeat same steps until calorie goal is met. Goal is to burn 2000 calories per week on exercise, which means either 300 calories daily. 10. Goal is to lose at least 1.5-2lbs per week 11. Goal to lose 10% of your weight before surgery, which is about 36lbs. Ultimate weight goal: 324lbs before surgery 12. Please follow the diet plan exactly without any change. If you don't like something about the plan or you feel hungry you need to communicate with me so I can help you revise the plan. You should not change the plan yourself 13. To be scheduled for EGD to assess the stomach's anatomy. The possibility of biopsies was discussed. Patient needs to avoid use of NSAIDs and aspirin for 1 week prior to EGD. You must be on liquids only the day before your endoscopy. Risks of perforation and bleeding was discussed with the patient. This will be an outpatient procedure with IV sedation. 14. Start the Zepbound when you get your body composition scale once a week. We discussed the potential side effects of Zepbound such as nausea, vomiting, abdominal pain, diarrhea and constipation and you will need to contact me if any of these symptoms occur or for any other new symptom you may experience. Phentermine is contraindicated due to the history of myocardial infarction and myocarditis. Orders: Orders Complete Blood Count Auto Diff Today E66.01 - Morbid (severe) obesity due to excess calories IRON PROFILE Today E66.01 - Morbid (severe) obesity due to excess calories Comprehensive Met. Panel Today E66.01 - Morbid (severe) obesity due to excess calories Vitamin A Today E66.01 - Morbid (severe) obesity due to excess calories Vitamin D 25-OH Total Today E66.01 - Morbid (severe) obesity due to excess calories XR chest 2V Today E66.01 - Morbid (severe) obesity due to excess calories ECG 12 lead EKG Today E66.01 - Morbid (severe) obesity due to excess calories Insulin Today E66.01 - Morbid (severe) obesity due to excess calories Hemoglobin A1c Today E66.01 - Morbid (severe) obesity due to excess calories H Pylori Breath Test Today E66.01 - Morbid (severe) obesity due to excess calories Lipid Panel Today E66.01 - Morbid (severe) obesity due to excess calories Vitamin B12 and Folate Today E66.01 - Morbid (severe) obesity due to excess calories Zinc Today E66.01 - Morbid (severe) obesity due to excess calories C Reactive Protein Today E66.01 - Morbid (severe) obesity due to excess calories Vitamin B1 Today E66.01 - Morbid (severe) obesity due to excess calories TSH reflex Free T4 Today E66.01 - Morbid (severe) obesity due to excess calori es Ferritin Today E66.01 - Morbid (severe) obesity due to excess calories US abdomen comp w elastography Today E66.01 - Morbid (severe) obesity due to excess calories Referrals Nutrition/Dietitian Referral E66.01 - Morbid (severe) obesity due to excess calories Behavioral Health Referral E66.01 - Morbid (severe) obesity due to excess calories Medications: New tirzepatide (weight loss) (Zepbound) for 4 weeks 2.5 mg (0.5 mL) subcut QWEEK 2 mL 0RF E66.01 - Morbid (severe) obesity due to excess calories, I42.9 - Cardiomyopathy, unspecified
[2024-11-25 10:00] VITALS: BMI 53.2
== END 2024-11-25 10:48 | disposition home or self-care (01) ==
LOC: HO.HBS 07:52
PROVIDERS: Visit Provider Surgery
DX: E66.813 Obesity, class 3 (principal); Z68.43 Body mass index [BMI] 50.0-59.9, adult
CPT/HCPCS: 99205

== ENCOUNTER → 2024-11-25 07:52 | Outpatient (BNVA) | payer OTHER, SELFPAY | PROVIDERS: Visit Provider Surgery ==

== ENCOUNTER 2024-12-01 10:38 | Outpatient (REF) | payer OTHER, SELFPAY ==
[2024-12-01 11:55] LABS: MANUAL DIFF FLAG NO
[2024-12-01 12:13] LABS: Basophils Percent Auto 0.1 % (0-2); Eosinophils Absolute Auto 0.2 X10*3/uL (0.0-0.4); Eosinophils Percent Auto 1.9 % (0-4); Hematocrit 46.3 % (42.0-52.0); Hemoglobin 15.8 g/dl (14.0-18.0); Imm Gran Abs Auto 0.04 X10*3/uL (0.00-0.03); Imm Gran Pct Auto 0.5 % (0.0-0.4); Lymphocytes Absolute Auto 2.1 X10*3/uL (1.2-4.9); Lymphocytes Percent Auto 25.8 % (20-40); Mean Corpuscular HGB Conc 34.1 g/dl (31.0-36.0); Mean Corpuscular Volume 81.9 fL (80.0-98.0); Mean Platelet Volume 10.4 fL (9.4-12.4); Monocytes Absolute Auto 0.5 X10*3/uL (0.1-1.2); Monocytes Percent Auto 6.6 % (2-11); Neutrophils Absolute Auto 5.2 x10*3/uL (2.0-8.3); Neutrophils Percent Auto 65.1 % (45-73); Platelet Count 222 X10*3/uL (160-400); Red Blood Count 5.65 X10*6/uL (4.60-5.80); Red Cell Distribution Width 14.1 % (11.0-16.0)
[2024-12-01 12:26] LABS: Estimated Average Glucose 157 mg/dL; Hemoglobin A1c % 7.1 % (<6.0)
[2024-12-01 12:44] LABS: Anion Gap 10 (12-20)
[2024-12-01 12:53] LABS: Alanine Aminotransferase 31 U/L (0-40); Albumin Level 3.8 g/dL (3.5-5.0); Alkaline Phosphatase 106 U/L (39-117); Aspartate Amino Transferase 23 U/L (5-37); Bilirubin Total 0.4 mg/dL (0.0-1.0); Blood Urea Nitrogen 9 mg/dL (9-16); C Reactive Protein 0.82 mg/dL (< or = 0.50); Calcium 8.9 mg/dL (8.4-10.2); Carbon Dioxide 27 mmol/L (22-29); Chloride 106 mmol/L (96-108); Cholesterol 167 mg/dL (<200); Estimated Glomerular Filt Rate > 60; Glucose Random 228 mg/dL (60-115); HDL Cholesterol 30 mg/dL (>40); Iron 62 mcg/dL (45-160); LDL Cholesterol Calculated 111 mg/dL (<100); Percent Iron Saturation 26 % (15-50); Potassium 3.5 mmol/L (3.3-5.1); Sodium 139 mmol/L (135-145); Total Iron Binding Capacity 235 mcg/dL (228-428); Total Protein 8.3 g/dL (6.5-8.0); Triglycerides 131 mg/dL (<150); Unsaturated Iron Binding 173 ug/dL
[2024-12-01 13:10] LABS: Ferritin 171 ng/mL (20-250); TSH reflex Free T4 4.99 uIU/mL (0.32-4.0)
[2024-12-01 13:21] LABS: Folate 11.2 ng/mL (> or = 4.0); Vitamin B12 490 pg/mL (200-900)
[2024-12-01 13:31] LABS: Insulin 114 uU/mL (2-29)
[2024-12-01 14:48] LABS: Free T4 (Free Thyroxine) 0.86 ng/dL (0.71-1.85)
[2024-12-04 01:08] LABS: Zinc 75 mcg/dL (60-130)
[2024-12-04 13:29] LABS: Vitamin A 35 mcg/dL (38-98)
[2024-12-08 09:08] LABS: Vitamin B1 7 nmol/L (8-30)
== END 2024-12-01 10:39 | disposition home or self-care (01) ==
LOC: HO.LAB 10:38
PROVIDERS: Absent Provider Surgery; Visit Provider Physician Assistant Surgical
DX: E66.01 Morbid (severe) obesity due to excess calories (principal)
CPT/HCPCS: 36415; 80053; 80061; 82306; 82607; 82728; 82746; 83036; 83525; 83540; 84425; 84439; 84443; 84590; 84630; 85025; 86140

== ENCOUNTER → 2024-12-13 11:08 | Outpatient (AMB) | payer OTHER, SELFPAY ==
--- NOTE | 2024-12-13 11:00 | MHC.WMTHER ---
Intake Intake Visit Reasons: TV BH Intake Allergies Aspirin Allergy (Unknown, Uncoded 11/25/24 09:51) swelling Penicillin Allergy (Unknown, Uncoded 11/25/24 09:51) swelling COUNT INCLUDES THE [facility] Medical History Acute non-ST elevation myocardial infarction (NSTEMI) GERD (gastroesophageal reflux disease) Sleep apnea with use of continuous positive airway pressure (CPAP) Morbid obesity Surgical History History of kidney surgery Family History Father Coronary artery disease Diabetes Hypertension Mother Asthma Sister No problems noted. Sister No problems noted. Sister No problems noted. Sister No problems noted. Sister No problems noted. Brother No problems noted. Brother No problems noted. Son No problems noted. Daughter No problems noted. Social History Household Members: Spouse Housing: House Do you presently have visiting nurse or other home services: No Alcohol intake: never Patient Tobacco Use Status: Former Tobacco user service: No Behavioral Health Assessment Weight Management Therapy Therapy Notes Details The patient is a 44-year-old male presenting for an initial visit to begin a behavioral health (BH) assessment as part of the surgical weight loss program. The patient reports having been in the program previously but did not move forward with surgery due to feelings of discouragement. He is now motivated to pursue bariatric surgery to improve his overall health and enhance his ability to engage in physical activities. The patient has been experiencing significant challenges related to his work, as his job requires him to stand for extended periods, which has become increasingly difficult due to his weight. Presenting Concerns Referral Source P-Provider. Dr. Briceno PT had initial visit on 11/25/2024 Reason for referral Completion of behavioral health assessment as part of process for weight-loss surgery. Precipitating Event Obesity. Living Situation Current Living Situation Rent At risk of losing current housing? No Satisfied with current living situation? Yes Comments PT lives with his and 2 children. Food/Weight/Diet Expectations of change Initial gal to lose 10% of your weight before surgery, which is about 36lbs. Ultimate weight goal: 324lbs before surgery PT started the program on 11/25/2024 at 360Lbs, and most recent weight as of 12/13/2024 was 353Lbs. Patient wants to have a better health and do more physical activities. He has been having major issues when working as he stands most of the time. PT is implementing the following: Current meal plan: combination of shakes, bars and 1 meal (12F/12F) Exercise plan: 300 calories at day. Treadmill. Scale: Yes Communication w/ provider: yes on Tuesdays. History/Relationship with food Example of meals before starting the program: Breakfast: Lunch: Dinner: Snacks: Drinks/Liquids: History/Relationship with weight In the last 10 years, the patient's Lowest weight was and highest Social History Family history and relationship PT is 26 years ago, they have 2 children who are 19 y/o boy and 13 y/o girl. He also has an adult 23 y/o boy who is . His mother lives in [place], he has 5 sisters (4 on mom's side and 1 from dad) and 2 brothers (from dad' side), his father . PT reports he is very close to his family mainly to his mother and siblings on mom's side. Parental/Familial lean consultant obligations 2 children. Developmental history and status PT received Chapter 1 services in [place] for academic issues, never received meds or got further treatment. Currently WNL. Social support , children. All family in general and close friends. Community support None. Church/Spirituality [employer]. Attends worship 4 days at week. Cultural/Ethnic information . PT was born and raised in [place]. Been in [place] 9 years ago. Legal Involvement and History Current or historical involvement with the legal system? None reported. Education Highest grade completed HS and . Preferred learning style Auditory Currently enrolled in educational program? No Interested in further educational program? 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 No Meaningful activities Fishing, family activities. Financial Situation Describe current financial situation Comfortable and Occasional struggle Financial assistance? Other (Section 8 and insurance. ) Service Service? No Mental Health and Addiction Treatment Current/Past substance abuse? No Comments Alcohol: None. Cigarettes/Tobacco: None. Cannabis/Edibles: None. Current/Past addictive behavior concerns? No Psychiatric history PT reports he's not in counseling or even been in any type of treatment. There is no history and/or current concern about SI/SA and self-harm or other harm. Medical and Physical Health Summary Additional Medical History not covered in history None additional. Sexual History concerns None reported. Physical exam in the last year? No Pain Screening Current pain? Yes Pain in the last few months? Yes Comments Leg pain Medications Is the patient compliant with medications? Yes Does the patient have Calvin Guardian in place? Not applicable Does the patient use complimentary health approaches? No Trauma/Abuse History History of trauma? No Questionnaires PHQ-9 Over the last 2 weeks, how often have you been bothered by any of the following problems? 1. Little interest or pleasure in doing things: several days 2. Feeling down, depressed, or hopeless: not at all 3. Trouble falling or staying asleep, or sleeping too much: several days 4. Feeling tired or having little energy: nearly every day 5. Poor appetite or overeating: nearly every day 6. Feeling bad about yourself - or that you are a failure or have let yourself or your family down: nearly every day 7. Trouble concentrating on things, such as reading the newspaper or watching television: nearly every day 8. Moving or speaking so slowly that other people could have noticed. Or the opposite - being so fidgety or restless that you have been moving around a lot more than usual: nearly every day 9. Thoughts that you would be better off or of hurting yourself in some way: not at all Total score: 17 Depression Screening Interpretation: Positive (From new PT pack. New one will be administered at next visit. ) Depression Screening Done: Yes Source: Developed by Drs. Jorge Madrid, Rosemarie Adams, Sam Tejeda and colleagues, with an educational luis felipe from [employer]. Binge Eating Scale Group 1 A. I don't feel self-conscious about my wt. or body size when I'm with others. B. I feel concerned about how I look to others, but it normally does not make me fell disappointed with myself C. I do get self-conscious about my appearance and wt. which makes me feel disappointed in myself. D. I feel very self-conscious about my wt. and frequently I feel intense shame and disgust for myself. I try to avoid social contacts because of my self-consciousness. Response Group 1: C Group 2 A. I don't have any difficulty eating slowly in the proper manner. B. Although I seem to gobble down foods, I don't end up feeling stuffed because of eating to much. C. At times, I tend to eat quickly and then, I feel uncomfortably full afterwards. D. I have the habit of bolting down my food, without really chewing it. When this happens I usually feel uncomfortably stuffed because I've eaten to much. Response Group 2: C Group 3 A. I feel capable to control my eating urges when I want to. B. I feel like I have failed to control my eating more than the average person. C. I feel utterly helpless when it comes to feeling in control of my eating urges. D. Because I feel so helpless about controlling my eating I have become very desperate about trying to get control. Response Group 3: B Group 4 A. I don't have the habit of eating when I'm bored. B. I sometimes eat when I'm bored, but often I'm able to get busy and get my mind off food. C. I have a regular habit of eating when I'm bored, but occasionally, I can use some other activity to get my mind off eating. D. I have a strong habit of eating when I'm bored. Nothing seems to help me breath the habit. Response Group 4: D Group 5 A. I'm usually physically hungry when I eat something. B. Occasionally, I eat something on impulse even though I really am not hungry. C. I have the regular habit of eating foods, that I might not really enjoy, to satisfy a hungry feeling even though physically, I don't need the food. D. Although I'm not physically hungry, I get a hungry feeling in my mouth that only seems to be satisfied when I eat a food, like sandwich, that fills my mouth. Sometimes, when I eat the food to satisfy my mouth hunger, I then spit the food out so I won't gain weight. Response Group 5: B Group 6 A. I don't feel any guilt or self-hate after I overeat. B. After I overeat, occasionally I feel guilt or self-hate. C. Almost all the time I experience strong guilt or self-hate after I overeat. Response Group 6: B Group 7 A. I don't lose total control of my eating when dieting even after periods when I overeat. B. Sometimes when I eat a forbidden food on a diet, I feel like I blew it and eat even more. C. Frequently, I have the habit of saying to myself, I've blown it now, why not go all the way, when I overeat on a diet. When that happens I eat more. D. I have a regular habit of starting a strict diets for myself but I break the diets by going on an eating binge. My life seems to be either a feast or famine. Response Group 7: D Group 8 A. I rarely eat so much food that I feel uncomfortably stuffed afterwards. B. Usually about once a month, I each such a quantity of food, I end up feeling very stuffed. C. I have regular periods during the month when I eat large amounts of food, either at mealtime or at snacks. D. I eat so much food that I regularly feel quite uncomfortable after eating and sometimes a bit nauseous. Response Group 8: C Group 9 A. My level of calorie intake does not go up very high or go down very low on a regular basis. B. Sometimes after I overeat, I will try to reduce my caloric intake to almost nothing to compensate for the excess calories I've eaten. C. I have a regular habit of overeating during the night. It seems that my routine is not to be hungry in the morning but overeat in the evening. D. In my adult years, I have had week-long periods where I practically starve myself. This follows periods when I overeat. It seems I live a life of either feast or famine. Response Group 9: C Group 10 A. I usually am able to stop eating when I want to. I know when enough is enough. B. Every so often, I experience a compulsion to eat which I can't seem to control. C. Frequently, I experience strong urges to eat which I seem unable to control, but at other times I can control my eating urges. D. I feel incapable of controlling urges to eat. I have a fear of not being able to stop eating voluntarily. Response Group 10: C Group 11 A. I don't have any problem stopping eating when I feel full. B. I usually can stop eating when I feel full but occasionally overeat leaving me feeling uncomfortably stuffed. C. I have a problem stopping eating once I start and usually I feel uncomfortably stuffed after I eat a meal. D. Because I have a problem not being able to stop eating when I want, I sometimes have to induce vomiting to relieve my stuffed feeling. Response Group 11: B Group 12 A. I seem to eat just as much when I'm with others, Family social gatherings as when I'm by myself. B. Sometimes, when I'm with other persons, I don't eat as much as I want to eat because I'm self-conscious about my eating. C. Frequently, I eat only a small amount of food when others are present, because I'm very embarrassed about my eating. D. I feel so ashamed about overeating that I pick times to overeat when I know no one will see me. I feel like a closet eater. Response Group 12: A Group 13 A. I eat three meals a day with only an occasional between meal snack. B. I eat 3 meals a day, but I also normally snack between meals. C. When I am snacking heavily, I get in the habit of skipping regular meals. D. There are regular periods when I seem to be continually eating, with no planned meals. Response Group 13: B Group 14 A. I don't think much about trying to control unwanted eating urges. B. At least some of the time, I feel my thoughts are pre-occupied with trying to control my eating urges. C. I feel that frequently I spend much time thinking about how much I ate or about trying not to eat anymore. D. It seems to me that most of my waking hours are pre-occupied by thoughts about eating or not eating. I feel like I'm constantly struggling not to eat. Response Group 14: A Group 15 A. I don't think about food a great deal. B. I have strong craving for food but they last only for brief periods of time. C. I have days when I can't seem to think about anything else but food. D. Most of my days seem to be pre-occupied with thoughts about food. I feel like I live to eat. Response Group 15: B Group 16 A. I usually know whether or not I'm physically hungry. I take the right portion of food to satisfy me. B. Occasionally, I feel uncertain about knowing whether or not I'm physically hungry. A these times it's hard to know how much food I should take to satisfy me. C. Even though I might know how many calories I should eat, I don't have any idea what is a normal amount of food for me. Response Group 16: C Binge Eating Score: 24 Score less than 17 Minimal Risk Score between 18-26 Moderate Risk Score between 27-46 High Risk Assessment & Plan Assessment & Plan (1) Morbid obesity with BMI of 50.0-59.9, adult: Code(s): E66.01 - Morbid (severe) obesity due to excess calories; Z68.43 - Body mass index [BMI] 50.0-59.9, adult (2) Adjustment disorder: Code(s): F43.20 - Adjustment disorder, unspecified (3) Inappropriate diet or eating habits: Code(s): Z72.4 - Inappropriate diet and eating habits Plan The patient has not been cleared yet and is scheduled to return in approximately two weeks to continue the assessment. The PHQ-9 will be administered again during the next visit, prior to completing the assessment. Next appointment: 12/27/2024 at 9am, via Telehealth (video). Telehealth Telehealth Telehealth Platform: [facility] Location of provider rendering services: practice address Location of patient: address on file Patient Identification confirmed using: Name, : Yes Telehealth method: video Patient verbally consented to treatment: Yes Patient verbally consented to billing insurance company: Yes Patient informed of any privacy concerns related to visit: Yes Minutes spent on Phone/Video with Pt.: 50 Coding Level of Care Code New Pt Tele Psy Diag Eval (68788) Patient Type New Diagnoses Morbid obesity with BMI of 50.0-59.9, adult E66.01; Z68.43 Adjustment disorder F43.20 Inappropriate diet or eating habits Z72.4 Time Spent (min) 50
--- OUTSIDE RECORDS SUMMARY | 2024-12-13 12:44 | XMS_ITS | Clinical Summary ---
Author Organization [employer] Address [address] [place] [address] Care Team Providers Care Diesel Engine Specialist Name Role Phone Unavailable Primary Care Provider Unavailabl e Encounters Date Type Department Care Team Description 10/11/2024 Telephone [facility] [address] [place] [id number] Laith Richards MD from Last 3 Months [...]
--- OUTSIDE RECORDS SUMMARY | 2024-12-13 12:44 | XMS_ITS | Clinical Summary ---
Author Organization [facility] Address [address] [place] [address] Care Team Providers Care Chief Estimator Name Role Phone Heber Benson Primary Care Provider [phone] Source Comments PLEASE NOTE, if this patient [...] Date Severe obesity (BMI 35.0-35.9 with comorbidity) ([facility]) 05/27/2022 ASCVD (arteriosclerotic cardiovascular disease) 08/29/2021 Overview (08/29/2021): Cardiac catheter underwent August 09. Immunizations Immunization Administration Dates Next Due Flu, Preservative Free [...] Health Maintenance Due Date Last Done Comments Anxiety Screening 1982 Tobacco Screening 1982 Imm-Hepatitis B (1 of 3 - 19 + 3-dose series) 2001 Annual Preventive Care Visit 05/27/2023 05/27/2022, 09/03/2017 Lipid Screening 05/27/2023 05/27/2022, 08/15, 09/09/2017 TSH Monitoring 05/27/2023 05/27/2022 Hypertension Screening (#1) 12/18/2023 [id number] ( season) 2024 021, 12/26/2020 Imm-Influenza (#1) [...] EDT Severe obesity (BMI 35.0-35.9 with comorbidity) ([facility]) Hypercholesteremia Routine adult health maintenance COMPREHENSIVE METABOLIC PANEL Routine 05/27/2022 9:56 AM EDT Severe obesity (BMI 35.0-35.9 with comorbidity) ([facility]) Hypercholesteremia Routine adult health maintenance LIPID PANEL Routine 05/27/2022 9:56 AM EDT Severe obesity (BMI 35.0-35.9 with comorbidity) ([facility]) Hypercholesteremia Routine adult health maintenance HIV 1/2 [...] TO FT4 6.25(H) 0.40 - 4.50 mIU/L [employer] Blood Blood / Unknown 05/27/2022 9 :56 AM EDT 05/27/2022 9:57 AM EDT [facility] - BLOOD DRAW Final Result [employer] [address] [address], [employer] [address] [place] [address],[place] [address] * (ABNORMAL) LIPID PANEL (05/27/2022 9:56 AM EDT) CHOLESTEROL, TOTAL 165 <200 mg/dL [employer] HDL CHOLESTEROL 37(L) > OR = 40 mg/dL [employer] TRIGLYCERIDES 118 <150 mg/dL [employer] LDL-CHOLESTEROL 107(H) 99 mg/dL (calc) [employer] Comment: Reference range: <100 Desirable range <100 mg/dL for primary prevention; ?? <70 mg/dL for patients with CHD or diabetic patients with > or = 2 CHD risk factors. LDL-C is now calculated using the Esau-Lorin calculation, which is a validated novel method providing better accuracy than the Friedewald equation in the estimation of LDL-C. Esau HATFIELD et al. JAYLA. 2013;310(19): 5688-4257 (http://education.Snehta/faq/ESE038) CHOL/HDLC RATIO 4.5 <5.0 (calc) [employer] NON-HDL CHOLESTEROL 128 <130 mg/dL (calc) [employer] Comment: For patients with diabetes plus 1 major ASCVD risk factor, treating to a non-HDL-C goal of <100 mg/dL (LDL-C of <70 mg/dL) is considered a therapeutic option. Blood Blood / Unknown 05/27/2022 9 :56 AM EDT 05/27/2022 9:57 AM EDT [facility] - BLOOD DRAW Final Result [employer] [facility] [address] [address], [facility] [address] [address] * (ABNORMAL) COMPREHENSIVE METABOLIC PANEL (05/27/2022 9:56 AM EDT) GLUCOSE 100(H) 65 - 99 mg/dL [facility] Comment: ?Fasting reference interval For someone without known diabetes, a glucose value between 100 and 125 mg/dL is consistent with prediabetes and should be confirmed with a follow-up test. UREA NITROGEN (BUN) 15 7 - 25 mg/dL [employer] [facility] CREATININE (blood) 0.67 0.60 - 1.29 mg/dL [employer] [facility] EGFR 121 > OR = 60 mL/min/1 .73m2 [facility] Comment: The eGFR is based on the CKD-EPI 2020 equation. To calculate the new eGFR from a previous Creatinine or Cystatin C result, go to https://www.kidney.org/professionals/ kdoqi/gfr%5Fcalculator BUN/CREATININE RATIO NOT APPLICABLE 6 - 22 [facility] SODIUM 138 135 - 146 mmol/L [employer] POTASSIUM 4.3 3.5 - 5.3 mmol/L [employer] CHLORIDE 103 98 - 110 mmol/L [employer] CARBON DIOXIDE 29 20 - 32 mmol/L [employer] [place] [employer] CALCIUM 9.3 8.6 - 10.3 mg/dL [facility] PROTEIN, TOTAL 8.0 6.1 - 8.1 g/dL [facility] ALBUMIN 4.2 3.6 - 5.1 g/dL [employer] [facility] GLOBULIN 3.8(H) 1.9 - 3.7 g/dL (calc) [employer] [facility] ALBUMIN/GLOBUL IN RATIO 1.1 1.0 - 2.5 (calc) [employer] [facility] BILIRUBIN, TOTAL 0.3 0.2 - 1.2 mg/dL [employer] [facility] ALKALINE PHOSPHATASE 82 36 - 130 U/L [employer] [facility] AST 16 10 - 40 U/L [employer] [facility] ALT 19 9 - 46 U/L [employer] [facility] Blood Blood / Unknown 05/27/2022 9 :56 AM EDT 05/27/2022 9:57 AM EDT us [facility] - BLOOD DRAW Edited Result - Final Performing Organization Address [facility]/ZIP Co de Phone Number [employer] [address] [address], [employer] [address] [place] [address] * HEPATITIS C AB W/RFLX HCV RNA, QT, RT PCR (08/29/2021 3:51 PM EST) HEPATITIS C ANTIBODY NON-REACT JIMMIE NON-REACT JIMMIE [employer] [facility] SIGNAL TO CUT-OFF 0.16 <1.00 [employer] [facility] Comment: HCV antibody was non-reactive. There is no laboratory evidence of HCV infection. In most cases, no further action is required. However, if recent HCV exposure is suspected, a test for HCV RNA (test code 17685) is suggested. For additional information please refer to http://education.Bokecc/faq/VGI12t5 (This link is being provided for informational/ educational purposes only.) Blood Blood / Unknown 08/29/2021 3 :51 PM EST 08/29/2021 3:51 PM EST us [facility] - BLOOD DRAW Final Result Performing Organization Address City/[facility]/ZIP Co de Phone Number [facility] [address] [address], [employer] [address] [place] [address] * HIV 1/2 AG & AB W/RFLX (4TH GEN) (08/29/2021 3:51 PM EST) HIV AG/AB, 4TH GEN NON-REAC TIVE NON-REAC TIVE [employer] [facility] Comment: HIV-1 antigen and HIV-1/HIV-2 antibodies [...] ?? For additional information please refer to http://education.Bokecc/faq/MKQ424 (This link is being provided for informational/ educational purposes only.) The performance of this assay has not been clinically validated in patients less than 2 years old. Blood Blood / Unknown 08/29/2021 3 :51 PM EST 08/29/2021 3:51 PM EST [facility] - BLOOD DRAW Final Result [employer] [address] [address], [employer] [facility] [address],[facility] [address] from Last 3 Months or Most Recently Relevant to Health Maintenance Insurance [id number] Care Teams Chief Estimator Relationship Specialty Start Date End Date Heber Benson PA [address] [place] [address] PCP - General Internal Medicine 09/09/17
== END ==
PROVIDERS: Visit Provider Counselor Mental Health
DX: E66.01 Morbid (severe) obesity due to excess calories (principal); Z68.43 Body mass index [BMI] 50.0-59.9, adult; F43.20 Adjustment disorder, unspecified; Z72.4 Inappropriate diet and eating habits
CPT/HCPCS: 90791

== ENCOUNTER → 2024-12-13 11:08 | Outpatient (BNVA) | payer OTHER, SELFPAY | PROVIDERS: Visit Provider Counselor Mental Health ==

== ENCOUNTER 2024-12-29 13:16 | Outpatient (AMB) | payer OTHER, SELFPAY ==
--- NOTE | 2024-12-29 13:00 | MHC.WMTHER ---
Intake Intake Visit Reasons: VIDEO Intake Part 2 Allergies Aspirin Allergy (Unknown, Uncoded 11/25/24 09:51) swelling Penicillin Allergy (Unknown, Uncoded 11/25/24 09:51) swelling [facility] Medical History Acute non-ST elevation myocardial infarction (NSTEMI) GERD (gastroesophageal reflux disease) Sleep apnea with use of continuous positive airway pressure (CPAP) Morbid obesity Surgical History History of kidney surgery Family History Father Coronary artery disease Diabetes Hypertension Mother Asthma Sister No problems noted. Sister No problems noted. Sister No problems noted. Sister No problems noted. Sister No problems noted. Brother No problems noted. Brother No problems noted. Son No problems noted. Daughter No problems noted. Social History Household Members: Spouse Housing: House Do you presently have visiting nurse or other home services: No Alcohol intake: never Patient Tobacco Use Status: Former Tobacco user service: No Behavioral Health Assessment Weight Management Therapy Therapy Notes Details The patient is a 44-year-old male presenting for a second visit to complete behavioral health () assessment as part of the surgical weight loss program. He reports previously participating in the program but ultimately did not proceed with surgery due to feeling discouraged at the time. He is now motivated to resume the process and pursue bariatric surgery with the goal of improving his overall health and increasing his ability to engage in physical activity. The patient reports significant work-related challenges, particularly due to the physical demands of standing for extended periods, which have become increasingly difficult as a result of his weight. The patient denies any history of mental health treatment, psychiatric hospitalization, or behavioral health crises. He also denies any current or past concerns related to suicidal ideation (SI), suicide attempts (SA), self-harm, or harm to others. No history of substance use was reported. There is no indication of emotional or stress-related eating. Results from the Binge Eating Scale (BES) suggest a low risk for disordered eating behaviors. Scores on the PHQ-9 indicate no current symptoms or concerns related to depression. Mental status examination is within normal limits, with no signs of impairment in functioning. The patient is cleared from a behavioral health standpoint at this time. Follow-up will be scheduled post-operatively for BH screening and provide ongoing support as part of the surgical weight loss program. Presenting Concerns Referral Source WMP-Provider. Dr. Briceno PT had initial visit on 11/25/2024. Reason for referral Completion of behavioral health assessment as part of process for weight-loss surgery. Precipitating Event Obesity. Living Situation Current Living Situation Rent At risk of losing current housing? No Satisfied with current living situation? Yes Comments PT lives with his and 2 children. Food/Weight/Diet Expectations of change The initial goal is for the patient to achieve a 10% weight loss before surgery, which equals approximately 36 lbs. The target pre-surgical weight is 324 lbs. Program Start Date: 11/25/2024 at 360 lbs Weight on 12/13/2024: 353 lbs Weight on 12/28/2024: 340 lbs The patient reports motivation to improve overall health and increase physical activity. He is currently experiencing significant physical discomfort while working, due to the nature of his job, which requires prolonged standing. Current Implementation Plan -Meal Plan: Following a structured regimen consisting of protein shakes, meal replacement bars, and one solid meal daily (12F/12F). -Exercise Plan: Burning approximately 300 calories daily, primarily through treadmill use. -Scale Access: Yes -Communication with Provider: Ongoing communication every Friday History/Relationship with food Denies stress eating, but at times would feel urges for sweets when bored or when watching TV. Was also used to snack while driving. Meals are style with multiple carbs in 1 meal and lots of fried food. Example of meals before starting the program: Breakfast: @9am - ham/pork and cheese sandwich with/ alvarez, ketchup, mustard, and butter, or scrambled eggs with bread and soda crackers. With coffee. Lunch: noon- leftovers from the day before, dinner or food 2x week. Dinner: @7 homemade Cong[place]ese foods, rice, chicken, beans, pork chops) Snacks: 1-2 snacks between lunch and dinner (sweets, candy, crackers), rarely after dinner Drinks/Liquids: Coffee 4-5/day (sugar and cream), soda: 2/day. water: 1-2 bottles at day. History/Relationship with weight PT reports he was skinny in childhood, then as an adolescent he was very active, played sports, and was under 200 lbs. In his early 20's he was already around 270 lbs. In the last 10 years, the patient's Lowest weight was 350 lbs and the highest 365 lbs History/Relationship with dieting Atkins diet, Herbalife, Ketto, self-diet, Unicity. The longest he stuck to the methods was 3 months. Binge Eating Do you frequently eat large amounts of food in short periods of time, not feeling physically hungry? Yes Do you feel out of control when you eat a large amount of food in a short period of time? No Do you eat large amounts of food rapidly and typically alone? Yes Night Eating Do you wake up at least once during the night to eat? No If you wake up in the night, do you find that it is necessary to eat something in order to fall back asleep? No Do you have little or no appetite in the morning and feel very hungry in the evening, often overeating between dinner and when you go to bed? No Social History Family history and relationship PT is 26 years ago, they have 2 children who are 19 y/o boy and 13 y/o girl. He also has an adult 23 y/o boy who is . His mother lives in [place], he has 5 sisters (4 on mom's side and 1 from dad) and 2 brothers (from dad' side), his father . PT reports he is very close to his family mainly to his mother and siblings on mom's side. 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 Developmental history and status PT received Chapter 1 services in [place] for academic issues, never received meds or got further treatment. Currently [facility]. Social support , children. All family in general and close friends. Community support None. 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 Attends taoism 4 days at week. Cultural/Ethnic information . PT was born and raised in [place]. Been in [place] 9 years ago. Legal Involvement and History Current or historical involvement with the legal system? None reported. Education Highest grade completed HS and . Preferred learning style Auditory Currently enrolled in educational program? No Interested in further educational program? No Educational Interests/Skills Licensed [employer]. 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 No Meaningful activities Fishing, family activities. Financial Situation Describe current financial situation Comfortable and Occasional struggle Financial assistance? Other (Section 8 and insurance. ) Service Service? No Mental Health and Addiction Treatment Current/Past substance abuse? No Comments Alcohol: None. Cigarettes/Tobacco: None. Cannabis/Edibles: None. Current/Past addictive behavior concerns? No Psychiatric history PT reports he's not in counseling or even been in any type of MH treatment. There is no history and/or current concern about SI/SA and self-harm or other harm. Medical and Physical Health Summary Additional Medical History not covered in history None additional. Sexual History concerns None reported. Physical exam in the last year? No Pain Screening Current pain? Yes Pain in the last few months? Yes Comments Leg pain Medications Is the patient compliant with medications? Yes Does the patient have Calvin Guardian in place? Not applicable Does the patient use complimentary health approaches? No Trauma/Abuse History History of trauma? No Questionnaires PHQ-9 Over the last 2 weeks, how often have you been bothered by any of the following problems? 1. Little interest or pleasure in doing things: several days 2. Feeling down, depressed, or hopeless: not at all 3. Trouble falling or staying asleep, or sleeping too much: not at all 4. Feeling tired or having little energy: several days 5. Poor appetite or overeating: not at all 6. Feeling bad about yourself - or that you are a failure or have let yourself or your family down: not at all 7. Trouble concentrating on things, such as reading the newspaper or watching television: not at all 8. Moving or speaking so slowly that other people could have noticed. Or the opposite - being so fidgety or restless that you have been moving around a lot more than usual: not at all 9. Thoughts that you would be better off or of hurting yourself in some way: not at all Total score: 2 Depression Screening Interpretation: Negative Depression Screening Done: Yes 67778 - PHQ-9 Billing: Yes Source: Developed by Drs. Jorge Madrid, Rosemarie Adams, Sam Tejeda and colleagues, with an educational luis felipe from [employer]. Binge Eating Scale Group 1 A. I don't feel self-conscious about my wt. or body size when I'm with others. B. I feel concerned about how I look to others, but it normally does not make me fell disappointed with myself C. I do get self-conscious about my appearance and wt. which makes me feel disappointed in myself. D. I feel very self-conscious about my wt. and frequently I feel intense shame and disgust for myself. I try to avoid social contacts because of my self-consciousness. Response Group 1: C Group 2 A. I don't have any difficulty eating slowly in the proper manner. B. Although I seem to gobble down foods, I don't end up feeling stuffed because of eating to much. C. At times, I tend to eat quickly and then, I feel uncomfortably full afterwards. D. I have the habit of bolting down my food, without really chewing it. When this happens I usually feel uncomfortably stuffed because I've eaten to much. Response Group 2: C Group 3 A. I feel capable to control my eating urges when I want to. B. I feel like I have failed to control my eating more than the average person. C. I feel utterly helpless when it comes to feeling in control of my eating urges. D. Because I feel so helpless about controlling my eating I have become very desperate about trying to get control. Response Group 3: B Group 4 A. I don't have the habit of eating when I'm bored. B. I sometimes eat when I'm bored, but often I'm able to get busy and get my mind off food. C. I have a regular habit of eating when I'm bored, but occasionally, I can use some other activity to get my mind off eating. D. I have a strong habit of eating when I'm bored. Nothing seems to help me breath the habit. Response Group 4: D Group 5 A. I'm usually physically hungry when I eat something. B. Occasionally, I eat something on impulse even though I really am not hungry. C. I have the regular habit of eating foods, that I might not really enjoy, to satisfy a hungry feeling even though physically, I don't need the food. D. Although I'm not physically hungry, I get a hungry feeling in my mouth that only seems to be satisfied when I eat a food, like sandwich, that fills my mouth. Sometimes, when I eat the food to satisfy my mouth hunger, I then spit the food out so I won't gain weight. Response Group 5: B Group 6 A. I don't feel any guilt or self-hate after I overeat. B. After I overeat, occasionally I feel guilt or self-hate. C. Almost all the time I experience strong guilt or self-hate after I overeat. Response Group 6: B Group 7 A. I don't lose total control of my eating when dieting even after periods when I overeat. B. Sometimes when I eat a forbidden food on a diet, I feel like I blew it and eat even more. C. Frequently, I have the habit of saying to myself, I've blown it now, why not go all the way, when I overeat on a diet. When that happens I eat more. D. I have a regular habit of starting a strict diets for myself but I break the diets by going on an eating binge. My life seems to be either a feast or famine. Response Group 7: D Group 8 A. I rarely eat so much food that I feel uncomfortably stuffed afterwards. B. Usually about once a month, I each such a quantity of food, I end up feeling very stuffed. C. I have regular periods during the month when I eat large amounts of food, either at mealtime or at snacks. D. I eat so much food that I regularly feel quite uncomfortable after eating and sometimes a bit nauseous. Response Group 8: C Group 9 A. My level of calorie intake does not go up very high or go down very low on a regular basis. B. Sometimes after I overeat, I will try to reduce my caloric intake to almost nothing to compensate for the excess calories I've eaten. C. I have a regular habit of overeating during the night. It seems that my routine is not to be hungry in the morning but overeat in the evening. D. In my adult years, I have had week-long periods where I practically starve myself. This follows periods when I overeat. It seems I live a life of either feast or famine. Response Group 9: C Group 10 A. I usually am able to stop eating when I want to. I know when enough is enough. B. Every so often, I experience a compulsion to eat which I can't seem to control. C. Frequently, I experience strong urges to eat which I seem unable to control, but at other times I can control my eating urges. D. I feel incapable of controlling urges to eat. I have a fear of not being able to stop eating voluntarily. Response Group 10: C Group 11 A. I don't have any problem stopping eating when I feel full. B. I usually can stop eating when I feel full but occasionally overeat leaving me feeling uncomfortably stuffed. C. I have a problem stopping eating once I start and usually I feel uncomfortably stuffed after I eat a meal. D. Because I have a problem not being able to stop eating when I want, I sometimes have to induce vomiting to relieve my stuffed feeling. Response Group 11: B Group 12 A. I seem to eat just as much when I'm with others, Family social gatherings as when I'm by myself. B. Sometimes, when I'm with other persons, I don't eat as much as I want to eat because I'm self-conscious about my eating. C. Frequently, I eat only a small amount of food when others are present, because I'm very embarrassed about my eating. D. I feel so ashamed about overeating that I pick times to overeat when I know no one will see me. I feel like a closet eater. Response Group 12: A Group 13 A. I eat three meals a day with only an occasional between meal snack. B. I eat 3 meals a day, but I also normally snack between meals. C. When I am snacking heavily, I get in the habit of skipping regular meals. D. There are regular periods when I seem to be continually eating, with no planned meals. Response Group 13: B Group 14 A. I don't think much about trying to control unwanted eating urges. B. At least some of the time, I feel my thoughts are pre-occupied with trying to control my eating urges. C. I feel that frequently I spend much time thinking about how much I ate or about trying not to eat anymore. D. It seems to me that most of my waking hours are pre-occupied by thoughts about eating or not eating. I feel like I'm constantly struggling not to eat. Response Group 14: A Group 15 A. I don't think about food a great deal. B. I have strong craving for food but they last only for brief periods of time. C. I have days when I can't seem to think about anything else but food. D. Most of my days seem to be pre-occupied with thoughts about food. I feel like I live to eat. Response Group 15: B Group 16 A. I usually know whether or not I'm physically hungry. I take the right portion of food to satisfy me. B. Occasionally, I feel uncertain about knowing whether or not I'm physically hungry. A these times it's hard to know how much food I should take to satisfy me. C. Even though I might know how many calories I should eat, I don't have any idea what is a normal amount of food for me. Response Group 16: C Binge Eating Score: 24 Score less than 17 Minimal Risk Score between 18-26 Moderate Risk Score between 27-46 High Risk Assessment & Plan Assessment & Plan (1) Morbid obesity with BMI of 50.0-59.9, adult: Code(s): E66.01 - Morbid (severe) obesity due to excess calories; Z68.43 - Body mass index [BMI] 50.0-59.9, adult (2) Adjustment disorder: Code(s): F43.20 - Adjustment disorder, unspecified (3) Inappropriate diet or eating habits: Code(s): Z72.4 - Inappropriate diet and eating habits Plan The patient has been cleared from a behavioral health standpoint and will return for a post-operative behavioral health screening and follow-up. Next Appointment: Scheduled for 2?4 weeks post-op. Telehealth Telehealth [facility] Location of provider rendering services: other Location of patient: address on file Patient Identification confirmed using: Name, : Yes Telehealth method: voice only Patient verbally consented to treatment: Yes Patient verbally consented to billing insurance company: Yes Patient informed of any privacy concerns related to visit: Yes Minutes spent on Phone/Video with Pt.: 55 Coding Level of Care Code Established Pt Tele Psytx >53 mins ([id number]) Patient Type Established Diagnoses Morbid obesity with BMI of 50.0-59.9, adult E66.01; Z68.43 Adjustment disorder F43.20 Inappropriate diet or eating habits Z72.4 Additional Codes PHQ-9 - 20259 - PHQ-9 Billing: Yes ([id number]) Time Spent (min) 55
--- OUTSIDE RECORDS SUMMARY | 2024-12-29 15:43 | XMS_ITS | Clinical Summary ---
Author Organization [facility] Address [address] [place] [address] Care Team Providers Care District Engineer Name Role Phone Heber Benson Primary Care Provider [phone] Source Comments PLEASE NOTE, if this patient [...] Date Severe obesity (BMI 35.0-35.9 with comorbidity) ([facility]) 05/27/2022 ASCVD (arteriosclerotic cardiovascular disease) 08/29/2021 Overview [...] Monitoring 05/27/2023 05/27/2022 Hypertension Screening (#1) 12/18/2023 [id number] ( season) 2024 021, 12/26/2020 Imm-Influenza (#1) [...] EDT Severe obesity (BMI 35.0-35.9 with comorbidity) ([facility]) Hypercholesteremia Routine adult health maintenance COMPREHENSIVE METABOLIC PANEL Routine 05/27/2022 9:56 AM EDT Severe obesity (BMI 35.0-35.9 with comorbidity) ([facility]) Hypercholesteremia Routine adult health maintenance LIPID PANEL Routine 05/27/2022 9:56 AM EDT Severe obesity (BMI 35.0-35.9 with comorbidity) ([facility]) Hypercholesteremia Routine adult health maintenance HIV 1/2 [...] TO FT4 6.25(H) 0.40 - 4.50 mIU/L [facility] Blood Blood / Unknown 05/27/2022 9 :56 AM EDT 05/27/2022 9:57 AM EDT [facility] - BLOOD DRAW Final Result [employer] [address] [address], [employer] [address] [place] [address],[place] [address] * (ABNORMAL) LIPID PANEL (05/27/2022 9:56 AM EDT) CHOLESTEROL, TOTAL 165 <200 mg/dL [facility] HDL CHOLESTEROL 37(L) > OR = 40 mg/dL [facility] TRIGLYCERIDES 118 <150 mg/dL [facility] LDL-CHOLESTEROL 107(H) 99 mg/dL (calc) [facility] Comment: Reference range: <100 Desirable range <100 mg/dL for primary prevention; ?? <70 mg/dL for patients with CHD or diabetic patients with > or = 2 CHD risk factors. LDL-C is now calculated using the Esau-Lorin calculation, which is a validated novel method providing better accuracy than the Friedewald equation in the estimation of LDL-C. Esau HATFIELD et al. JAYLA. 2013;310(19): 6262-9913 (http://education.Graitec/faq/TSB886) CHOL/HDLC RATIO 4.5 <5.0 (calc) [facility] NON-HDL CHOLESTEROL 128 <130 mg/dL (calc) [facility] Comment: For patients with diabetes plus 1 major ASCVD risk factor, treating to a non-HDL-C goal of <100 mg/dL (LDL-C of <70 mg/dL) is considered a therapeutic option. Blood Blood / Unknown 05/27/2022 9 :56 AM EDT 05/27/2022 9:57 AM EDT [facility] - BLOOD DRAW Final Result [employer] [facility] [address] [address], [employer] [facility] [address],[place] [address] * (ABNORMAL) COMPREHENSIVE METABOLIC PANEL (05/27/2022 9:56 AM EDT) GLUCOSE 100(H) 65 - 99 mg/dL [employer] [facility] Comment: ?Fasting reference interval For someone without known diabetes, a glucose value between 100 and 125 mg/dL is consistent with prediabetes and should be confirmed with a follow-up test. UREA NITROGEN (BUN) 15 7 - 25 mg/dL [employer] [facility] CREATININE (blood) 0.67 0.60 - 1.29 mg/dL [employer] [facility] EGFR 121 > OR = 60 mL/min/1 .73m2 [employer] [facility] Comment: The eGFR is based on the CKD-EPI 2020 equation. To calculate the new eGFR from a previous Creatinine or Cystatin C result, go to https://www.kidney.org/professionals/ kdoqi/gfr%5Fcalculator BUN/CREATININE RATIO NOT APPLICABLE 6 - 22 [employer] [facility] SODIUM 138 135 - 146 mmol/L [employer] POTASSIUM 4.3 3.5 - 5.3 mmol/L [employer] CHLORIDE 103 98 - 110 mmol/L [employer] CARBON DIOXIDE 29 20 - 32 mmol/L [employer] [place] [employer] CALCIUM 9.3 8.6 - 10.3 mg/dL [employer] [facility] PROTEIN, TOTAL 8.0 6.1 - 8.1 g/dL [employer] [facility] ALBUMIN 4.2 3.6 - 5.1 g/dL [employer] [facility] GLOBULIN 3.8(H) 1.9 - 3.7 g/dL (calc) [employer] [facility] ALBUMIN/GLOBUL IN RATIO 1.1 1.0 - 2.5 (calc) [employer] [facility] BILIRUBIN, TOTAL 0.3 0.2 - 1.2 mg/dL [employer] [facility] ALKALINE PHOSPHATASE 82 36 - 130 U/L [employer] [facility] AST 16 10 - 40 U/L [employer] [facility] ALT 19 9 - 46 U/L [employer] [facility] Blood Blood / Unknown 05/27/2022 9 :56 AM EDT 05/27/2022 9:57 AM EDT us [facility] - BLOOD DRAW Edited Result - Final Performing Organization Address [facility]/ZIP Co de Phone Number [employer] [address] [address], [employer] [address] [place] [address] * HEPATITIS C AB W/RFLX HCV RNA, QT, RT PCR (08/29/2021 3:51 PM EST) HEPATITIS C ANTIBODY NON-REACT JIMMIE NON-REACT JIMMIE [employer] [facility] SIGNAL TO CUT-OFF 0.16 <1.00 [employer] [facility] Comment: HCV antibody was non-reactive. There is no laboratory evidence of HCV infection. In most cases, no further action is required. However, if recent HCV exposure is suspected, a test for HCV RNA (test code 85673) is suggested. For additional information please refer to http://education.SpunLive/faq/YNQ89b9 (This link is being provided for informational/ educational purposes only.) Blood Blood / Unknown 08/29/2021 3 :51 PM EST 08/29/2021 3:51 PM EST us [facility] - BLOOD DRAW Final Result Performing Organization Address City/[facility]/ZIP Co de Phone Number [employer] [address] [address], [employer] [address] [place] [address] * HIV 1/2 AG & AB W/RFLX (4TH GEN) (08/29/2021 3:51 PM EST) HIV AG/AB, 4TH GEN NON-REAC TIVE NON-REAC TIVE [employer] [facility] Comment: HIV-1 antigen and HIV-1/HIV-2 antibodies were [...] ?? For additional information please refer to http://education.SpunLive/faq/UOS167 (This link is being provided for informational/ educational purposes only.) The performance of this assay has not been clinically validated in patients less than 2 years old. Blood Blood / Unknown 08/29/2021 3 :51 PM EST 08/29/2021 3:51 PM EST [facility] - BLOOD DRAW Final Result [employer] [address] [address], [employer] [facility] [address],[facility] [address] from Last 3 Months or Most Recently Relevant to Health Maintenance Insurance [employer] Care Teams District Engineer Relationship Specialty Start Date End Date Heber Benson PA [address] [place] [address] PCP - General Internal Medicine 09/09/17
--- OUTSIDE RECORDS SUMMARY | 2024-12-29 15:43 | XMS_ITS | Clinical Summary ---
Author Organization [employer] Address [address] [facility] [address] [place] [address] Care Team Providers Care Branch Operation Evaluation Manager Name Role Phone Unavailable Primary Care Provider Unavailabl e Encounters Date Type Department Care Team Description 12/13/2024 Telephone [facility] MED[facility]INE [address] [place], [place] [phone] Laith Richards MD 10/11/2024 Telephone [facility] [address] [place] [address] Laith Richards MD from Last 3 Months [...] patient's age to complete this topic Insurance [facility] PART[facility]
== END 2024-12-29 14:15 | disposition home or self-care (01) ==
LOC: HO.HBST 13:16
PROVIDERS: Visit Provider Counselor Mental Health
DX: Z68.43 Body mass index [BMI] 50.0-59.9, adult (principal); F43.20 Adjustment disorder, unspecified; E66.01 Morbid (severe) obesity due to excess calories; Z72.4 Inappropriate diet and eating habits
CPT/HCPCS: 90837

== ENCOUNTER → 2024-12-29 13:16 | Outpatient (BNVA) | payer OTHER, SELFPAY | PROVIDERS: Visit Provider Counselor Mental Health ==

== ENCOUNTER 2024-12-31 08:13 | Outpatient (REF) | payer OTHER, SELFPAY ==
--- NOTE | ~2024-12-31 | XR_ITS ---
EXAMINATION: XR CHEST CLINICAL INFORMATION: E66.01 - Morbid (severe) obesity due to excess calories COMPARISON: August 05, 2021. TECHNIQUE: 2 views of the chest were obtained. FINDINGS: No consolidation, pleural effusion or pneumothorax. Cardiomediastinal silhouette size is normal. Multilevel oracle lumbar spondylosis, mild to moderate. Mild S-shaped curvature of the thoracic spine which could be positional. XR/XR chest 2V IMPRESSION: No acute airspace disease. Mild scoliosis and spondylosis, thoracic spine. Electronically signed by: Mathieu Gomez MD 12/31/2024 08:31 AM EDT
--- NOTE | ~2024-12-31 | US_ITS ---
EXAMINATION: US ABDOMEN COMPLETE WITH LIVER ELASTOGRAPHY HISTORY: E66.01 - Morbid (severe) obesity due to excess calories TECHNIQUE: Real-time grayscale ultrasound imaging of the abdomen was performed and images were reviewed. COMPARISON: Comparison is made with the prior examination dated 04/18/2022. FINDINGS: Liver: The right lobe of the liver measures 19.2 cm in size. The left lobe of the liver measures 11.8 cm in size. The liver demonstrates increased echotexture, consistent with steatosis. No focal mass or intrahepatic biliary ductal dilatation is identified. There is normal hepatopedal flow in the portal vein. Ultrasound elastography of the liver was performed with 10 separate measurements of the liver parenchyma with the patient in the supine position. Measurements were obtained approximately 2 cm below Jorge Luis's capsule and perpendicular to the capsule. Images are of satisfactory quality. The median shear wave velocity is 1.47 m/s (previously 1.63 m/s). The interquartile range/median (IQR/median) is 0.08. Gallbladder and biliary tree: Multiple shadowing calculi are again noted in the gallbladder. There is no wall thickening or pericholecystic fluid. There is no sonographic Elizabeth sign. The common bile duct is normal in caliber measuring 5 mm. Kidneys: The right kidney measures 14.4 cm in length and demonstrates multiple nonobstructing calculi including a 1.1 cm calculus in the interpolar region and multiple lower pole calculi measuring 1.6 cm, 1.1 cm, and 0.9 cm. There is no hydronephrosis or mass. The left kidney measures 13.8 cm in length and is unremarkable. Pancreas: The pancreatic head, neck, and body are unremarkable. The pancreatic tail is obscured by bowel gas. Spleen: The spleen is normal in size and contour, measuring 12.3 cm in length. Abdominal aorta and inferior vena cava: The visualized portions of the abdominal aorta and inferior vena cava are normal in caliber. There is no free fluid in the abdomen. US/US abdomen comp w elastography IMPRESSION: 1. Hepatomegaly and hepatic steatosis. 2. Cholelithiasis. 3. Right nephrolithiasis as described. The median shear wave velocity in the liver is 1.47 m/s, corresponding to a median liver stiffness of 6.55 kPa. The IQR/median value is 0.08. This is indicative of a quality data set. Findings are indicative of a low elastography value which rules out advanced chronic liver disease in asymptomatic patients. REFERENCE: Society of Radiologists in Ultrasound Liver Stiffness Thresholds (2020): LIVER STIFFNESS THRESHOLDS: *Shear wave velocity less than 1.3 m/s (Liver Stiffness equal or less than 5 kPa): High probability of being normal. *Shear wave velocity less than 1.7 m/s (Liver Stiffness less than 9 kPa): In the absence of other known clinical signs, rules out compensated advanced chronic liver disease. *Shear wave velocity between 1.7-2.1 m/s (Liver Stiffness 9-13 kPa): Suggestive of compensated advanced chronic liver disease but need further test for confirmation. *Shear wave velocity between 2.1-2.4 m/s (Liver Stiffness 13-17 kPa): Rules in compensated advanced chronic liver disease. *Shear wave velocity greater than 2.4 m/s (Liver Stiffness over 17 kPa): Suggestive of clinically significant portal hypertension. QUALITY OF DATA SET: *IQR/Median value equal or less than 0.15 implies a quality data set. *IQR/Median value over 0.15 implies a poor quality data set. SIGNIFICANT CHANGE FROM PRIOR EXAM: Significant change if liver stiffness measurement is 10% or greater from prior exam. OTHER CONSIDERATIONS: The stage of liver fibrosis may be overestimated in the setting of acute hepatitis, liver inflammation, elevated liver function tests, hepatic vascular congestion, obstructive cholestasis, non-fasting state, and infiltrative diseases such as amyloidosis and lymphoma. In some patients with NAFLD, the liver stiffness thresholds for compensated advanced chronic liver disease may be lower. In causes other than viral hepatitis and NAFLD, liver stiffness thresholds are not well established. Electronically signed by: Jorge Julian MD 12/31/2024 10:12 AM EDT
--- OUTSIDE RECORDS SUMMARY | 2024-12-31 08:33 | XMS_ITS | Clinical Summary ---
Author Organization [facility] Address [address] [place] [address] Care Team Providers Care Parimutuel Ticket Cashier Name Role Phone Heber Benson Primary Care Provider [phone] Source Comments PLEASE NOTE, if this patient [...] Date Severe obesity (BMI 35.0-35.9 with comorbidity) ([facility]) 05/27/2022 ASCVD (arteriosclerotic cardiovascular disease) 08/29/2021 Overview [...] Monitoring 05/27/2023 05/27/2022 Hypertension Screening (#1) 12/18/2023 [id number] ( season) 2024 021, 12/26/2020 Imm-Influenza (#1) [...] EDT Severe obesity (BMI 35.0-35.9 with comorbidity) ([facility]) Hypercholesteremia Routine adult health maintenance COMPREHENSIVE METABOLIC PANEL Routine 05/27/2022 9:56 AM EDT Severe obesity (BMI 35.0-35.9 with comorbidity) ([facility]) Hypercholesteremia Routine adult health maintenance LIPID PANEL Routine 05/27/2022 9:56 AM EDT Severe obesity (BMI 35.0-35.9 with comorbidity) ([facility]) Hypercholesteremia Routine adult health maintenance HIV 1/2 [...] TO FT4 6.25(H) 0.40 - 4.50 mIU/L [facility] Blood Blood / Unknown 05/27/2022 9 :56 AM EDT 05/27/2022 9:57 AM EDT [facility] - BLOOD DRAW Final Result [employer] [address] [address], [employer] [address] [place] [address],[place] [address] * (ABNORMAL) LIPID PANEL (05/27/2022 9:56 AM EDT) CHOLESTEROL, TOTAL 165 <200 mg/dL [facility] HDL CHOLESTEROL 37(L) > OR = 40 mg/dL [facility] TRIGLYCERIDES 118 <150 mg/dL [facility] LDL-CHOLESTEROL 107(H) 99 mg/dL (calc) [facility] Comment: Reference range: <100 Desirable range <100 mg/dL for primary prevention; ?? <70 mg/dL for patients with CHD or diabetic patients with > or = 2 CHD risk factors. LDL-C is now calculated using the Esau-Lorin calculation, which is a validated novel method providing better accuracy than the Friedewald equation in the estimation of LDL-C. Esau HATFIELD et al. JAYLA. 2013;310(19): 8812-5878 (http://education.Lybrate/faq/XDW015) CHOL/HDLC RATIO 4.5 <5.0 (calc) [facility] NON-HDL CHOLESTEROL 128 <130 mg/dL (calc) [employer] [facility] Comment: For patients with diabetes plus 1 major ASCVD risk factor, treating to a non-HDL-C goal of <100 mg/dL (LDL-C of <70 mg/dL) is considered a therapeutic option. Blood Blood / Unknown 05/27/2022 9 :56 AM EDT 05/27/2022 9:57 AM EDT [facility] - BLOOD DRAW Final Result [employer] [facility] [address] [address], [employer] [facility] [address],[place] [address] * (ABNORMAL) COMPREHENSIVE METABOLIC PANEL (05/27/2022 9:56 AM EDT) GLUCOSE 100(H) 65 - 99 mg/dL [employer] [facility] Comment: ?Fasting reference interval For someone without known diabetes, a glucose value between 100 and 125 mg/dL is consistent with prediabetes and should be confirmed with a follow-up test. UREA NITROGEN (BUN) 15 7 - 25 mg/dL [employer] [facility] CREATININE (blood) 0.67 0.60 - 1.29 mg/dL [employer] [facility] EGFR 121 > OR = 60 mL/min/1 .73m2 [employer] [facility] Comment: The eGFR is based on the CKD-EPI 2020 equation. To calculate the new eGFR from a previous Creatinine or Cystatin C result, go to https://www.kidney.org/professionals/ kdoqi/gfr%5Fcalculator BUN/CREATININE RATIO NOT APPLICABLE 6 - 22 [employer] [facility] SODIUM 138 135 - 146 mmol/L [employer] POTASSIUM 4.3 3.5 - 5.3 mmol/L [employer] [facility] CHLORIDE 103 98 - 110 mmol/L [employer] [facility] CARBON DIOXIDE 29 20 - 32 mmol/L [employer] [place] [employer] CALCIUM 9.3 8.6 - 10.3 mg/dL [employer] [facility] PROTEIN, TOTAL 8.0 6.1 - 8.1 g/dL [employer] ALBUMIN 4.2 3.6 - 5.1 g/dL [employer] [facility] GLOBULIN 3.8(H) 1.9 - 3.7 g/dL (calc) [employer] [facility] ALBUMIN/GLOBUL IN RATIO 1.1 1.0 - 2.5 (calc) [employer] [facility] BILIRUBIN, TOTAL 0.3 0.2 - 1.2 mg/dL [employer] [facility] ALKALINE PHOSPHATASE 82 36 - 130 U/L [employer] [facility] AST 16 10 - 40 U/L [employer] [facility] ALT 19 9 - 46 U/L [employer] [facility] Blood Blood / Unknown 05/27/2022 9 :56 AM EDT 05/27/2022 9:57 AM EDT us [facility] - BLOOD DRAW Edited Result - Final Performing Organization Address [facility]/ZIP Co de Phone Number [employer] [address] [address], [employer] [address] [place] [address] * HEPATITIS C AB W/RFLX HCV RNA, QT, RT PCR (08/29/2021 3:51 PM EST) HEPATITIS C ANTIBODY NON-REACT JIMMIE NON-REACT JIMMIE [employer] [facility] SIGNAL TO CUT-OFF 0.16 <1.00 [employer] [facility] Comment: HCV antibody was non-reactive. There is no laboratory evidence of HCV infection. In most cases, no further action is required. However, if recent HCV exposure is suspected, a test for HCV RNA (test code 27548) is suggested. For additional information please refer to http://education.TRADE TO REBATE/faq/FIC82i8 (This link is being provided for informational/ educational purposes only.) Blood Blood / Unknown 08/29/2021 3 :51 PM EST 08/29/2021 3:51 PM EST us [facility] - BLOOD DRAW Final Result Performing Organization Address City/[facility]/ZIP Co de Phone Number [employer] [address] [address], [employer] [address] [place] [address] * HIV 1/2 AG & AB W/RFLX (4TH GEN) (08/29/2021 3:51 PM EST) HIV AG/AB, 4TH GEN NON-REAC TIVE NON-REAC TIVE [employer] [facility] Comment: HIV-1 antigen and HIV-1/HIV-2 antibodies were [...] ?? For additional information please refer to http://education.TRADE TO REBATE/faq/XCP938 (This link is being provided for informational/ educational purposes only.) The performance of this assay has not been clinically validated in patients less than 2 years old. Blood Blood / Unknown 08/29/2021 3 :51 PM EST 08/29/2021 3:51 PM EST [facility] - BLOOD DRAW Final Result [employer] [address] [address], [employer] [facility] [address],[facility] [place] [address] from Last 3 Months or Most Recently Relevant to Health Maintenance Insurance [employer] Care Teams Parimutuel Ticket Cashier Relationship Specialty Start Date End Date Heber Benson PA [address] [place] [address] PCP - General Internal Medicine 09/09/17
--- OUTSIDE RECORDS SUMMARY | 2024-12-31 08:33 | XMS_ITS | Clinical Summary ---
Author Organization [employer] Address [address] [facility] [address] [place] [address] Care Team Providers Care Technical Photographer Name Role Phone Unavailable Primary Care Provider Unavailabl e Encounters Date Type Department Care Team Description 12/13/2024 Telephone [facility] MEDICINE [address] [place], [place] [phone] Laith Richards MD 10/11/2024 Telephone [facility] MEDICINE [address] [place] [address] Laith Richards MD from Last 3 Months [...] patient's age to complete this topic Insurance [facility] PARTIAL
== END 2024-12-31 08:14 | disposition home or self-care (01) ==
LOC: HO.US 08:13
PROVIDERS: Visit Provider Surgery
DX: E66.01 Morbid (severe) obesity due to excess calories (principal)
CPT/HCPCS: 71046; 76700; 76981

== ENCOUNTER → 2024-12-31 08:17 | Outpatient (BNV) | payer OTHER, SELFPAY | PROVIDERS: Visit Provider Radiology Diagnostic Radiology | DX: R16.0 Hepatomegaly, not elsewhere classified (principal); K76.0 Fatty (change of) liver, not elsewhere classified; K80.00 Calculus of gallbladder with acute cholecystitis without obstruction; N20.0 Calculus of kidney; E66.01 Morbid (severe) obesity due to excess calories; Z68.43 Body mass index [BMI] 50.0-59.9, adult | CPT/HCPCS: 71046; 76700; 76981 ==

== ENCOUNTER 2025-01-17 07:51 | Outpatient (AMB) | payer MEDICAID, SELFPAY ==
--- OUTSIDE RECORDS SUMMARY | 2025-01-17 07:56 | XMS_ITS | Clinical Summary ---
Author Organization [facility] Address [address] [place] [address] Care Team Providers Care Workforce Advisor Name Role Phone Heber Benson Primary Care Provider [phone] Source Comments PLEASE NOTE, if this patient [...] Date Severe obesity (BMI 35.0-35.9 with comorbidity) ([facility]) 05/27/2022 ASCVD (arteriosclerotic cardiovascular disease) 08/29/2021 [...] Monitoring 05/27/2023 05/27/2022 Hypertension Screening (#1) 12/18/2023 [id number] ( season) 2024 021, 12/26/2020 Imm-Influenza (#1) [...] EDT Severe obesity (BMI 35.0-35.9 with comorbidity) ([facility]) Hypercholesteremia Routine adult health maintenance COMPREHENSIVE METABOLIC PANEL Routine 05/27/2022 9:56 AM EDT Severe obesity (BMI 35.0-35.9 with comorbidity) ([facility]) Hypercholesteremia Routine adult health maintenance LIPID PANEL Routine 05/27/2022 9:56 AM EDT Severe obesity (BMI 35.0-35.9 with comorbidity) ([facility]) Hypercholesteremia Routine adult health maintenance HIV [...] TO FT4 6.25(H) 0.40 - 4.50 mIU/L [employer] Blood Blood / Unknown 05/27/2022 9 :56 AM EDT 05/27/2022 9:57 AM EDT [facility] - BLOOD DRAW Final Result [employer] [address] [address], [employer] [address] [place] [address],[place] [address] * (ABNORMAL) LIPID PANEL (05/27/2022 9:56 AM EDT) CHOLESTEROL, TOTAL 165 <200 mg/dL [facility] HDL CHOLESTEROL 37(L) > OR = 40 mg/dL [facility] TRIGLYCERIDES 118 <150 mg/dL [facility] LDL-CHOLESTEROL 107(H) 99 mg/dL (calc) [employer] Comment: Reference range: <100 Desirable range <100 mg/dL for primary prevention; ?? <70 mg/dL for patients with CHD or diabetic patients with > or = 2 CHD risk factors. LDL-C is now calculated using the Esau-Lorin calculation, which is a validated novel method providing better accuracy than the Friedewald equation in the estimation of LDL-C. Esau HATFIELD et al. JAYLA. 2013;310(19): 8746-7024 (http://education.[employer]/faq/QOD076) CHOL/HDLC RATIO 4.5 <5.0 (calc) [facility] NON-HDL CHOLESTEROL 128 <130 mg/dL (calc) [facility] Comment: For patients with diabetes plus 1 major ASCVD risk factor, treating to a non-HDL-C goal of <100 mg/dL (LDL-C of <70 mg/dL) is considered a therapeutic option. Blood Blood / Unknown 05/27/2022 9 :56 AM EDT 05/27/2022 9:57 AM EDT He[facility] - BLOOD DRAW Final Result [facility] [address] [address], [facility] [facility] [address] [address] * (ABNORMAL) COMPREHENSIVE METABOLIC PANEL (05/27/2022 9:56 AM EDT) GLUCOSE 100(H) 65 - 99 mg/dL [facility] Comment: ?Fasting reference interval For someone without known diabetes, a glucose value between 100 and 125 mg/dL is consistent with prediabetes and should be confirmed with a follow-up test. UREA NITROGEN (BUN) 15 7 - 25 mg/dL [facility] CREATININE (blood) 0.67 0.60 - 1.29 mg/dL [facility] EGFR 121 > OR = 60 mL/min/[address] [facility] Comment: The eGFR is based on the CKD-EPI 2020 equation. To calculate the new eGFR from a previous Creatinine or Cystatin C result, go to https://www.kidney.org/professionals/ kdoqi/gfr%5Fcalculator BUN/CREATININE RATIO NOT APPLICABLE 6 - [address] [facility] SODIUM 138 135 - 146 mmol/L [employer] POTASSIUM 4.3 3.5 - 5.3 mmol/L [facility] CHLORIDE 103 98 - 110 mmol/L [employer] CARBON DIOXIDE 29 20 - 32 mmol/L [employer] [employer] CALCIUM 9.3 8.6 - 10.3 mg/dL [facility] PROTEIN, TOTAL 8.0 6.1 - 8.1 g/dL [facility] ALBUMIN 4.2 3.6 - 5.1 g/dL [facility] GLOBULIN 3.8(H) 1.9 - 3.7 g/dL (calc) [facility] ALBUMIN/GLOBUL IN RATIO 1.1 1.0 - 2.5 (calc) [facility] BILIRUBIN, TOTAL 0.3 0.2 - 1.2 mg/dL [facility] ALKALINE PHOSPHATASE 82 36 - 130 U/L [facility] AST 16 10 - 40 U/L [facility] ALT 19 9 - 46 U/L [facility] Blood Blood / Unknown 05/27/2022 9 :56 AM EDT 05/27/2022 9:57 AM EDT us He[facility] - BLOOD DRAW Edited Result - Final Performing Organization Address [facility]/ZIP Co de Phone Number [employer] [address] [address], [facility] [address] [place] [address] * HEPATITIS C AB W/RFLX HCV RNA, QT, RT PCR (08/29/2021 3:51 PM EST) HEPATITIS C ANTIBODY NON-REACT JIMMIE NON-REACT JIMMIE [facility] SIGNAL TO CUT-OFF 0.16 <1.00 [facility] Comment: HCV antibody was non-reactive. There is no laboratory evidence of HCV infection. In most cases, no further action is required. However, if recent HCV exposure is suspected, a test for HCV RNA (test code 89972) is suggested. For additional information please refer to http://education.SmartNews/faq/DGH90c0 (This link is being provided for informational/ educational purposes only.) Blood Blood / Unknown 08/29/2021 3 :51 PM EST 08/29/2021 3:51 PM EST us [facility] - BLOOD DRAW Final Result Performing Organization Address City/[facility]/ZIP Co de Phone Number [facility] [address] [address], [facility] [address] [place] [address] * HIV 1/2 AG & AB W/RFLX (4TH GEN) (08/29/2021 3:51 PM EST) HIV AG/AB, 4TH GEN NON-REAC TIVE NON-REAC TIVE [facility] Comment: HIV-1 antigen and HIV-1/HIV-2 antibodies [...] ?? For additional information please refer to http://education.SmartNews/faq/OFF177 (This link is being provided for informational/ educational purposes only.) The performance of this assay has not been clinically validated in patients less than 2 years old. Blood Blood / Unknown 08/29/2021 3 :51 PM EST 08/29/2021 3:51 PM EST [facility] - BLOOD DRAW Final Result [employer] [address] [address], [facility] [address],[facility] [address] from Last 3 Months or Most Recently Relevant to Health Maintenance Insurance [employer] Care Teams Workforce Advisor Relationship Specialty Start Date End Date Heber Benson PA [address] [place] [address] PCP - General Internal Medicine 09/09/17
--- OUTSIDE RECORDS SUMMARY | 2025-01-17 07:56 | XMS_ITS | Clinical Summary ---
Author Organization [employer] [facility] Address [address] 7[address] [place] [address] Care Team Providers Care Blasting Contract Man Name Role Phone Unavailable Primary Care Provider Unavailabl e Encounters Date Type Department Care Team Description 01/10/2025 Population Health Risk Score [facility] (C3) Department [address] [facility] [address] [place] [address] Provider, Population Health Generic 12/13/2024 Telephone [facility] MEDICINE [address] [place] [address] Laith Richards MD from Last 3 Months [...] patient's age to complete this topic Insurance [facility]
[2025-01-17 08:42] VITALS: BP 120/80; PULSE 72; BMI 49.2
--- NOTE | 2025-01-17 08:42 | A.OFFVIS_ITS ---
Vital Signs 01/17/25 08:42 Height 5 ft 9 in Weight 332 lb 14.368 oz BMI 49.2 BP 120/80 Blood Pressure Location Lt brachial Position Sitting Pulse 72 Intake Visit Reasons: r/s 05/27/24 1 yr followup w/ekg Intake Note: 1 year follow-up with ekg feeling good Linux Admin Engineer Required: Yes Linux Admin Engineer Services: Linux Admin Engineer Present Linux Admin Engineer Name: kwadwo Watts Pickle Pumper: Pickle Pumper Present Accompanied by: Spouse Allergies Aspirin Allergy (Unknown, Uncoded 11/25/24 09:51) swelling Penicillin Allergy (Unknown, Uncoded 11/25/24 09:51) swelling Medication List - Last Reconciled 01/17/25 by Kush Alvarez MD cholecalciferol (vitamin D3) 125 mcg PO DAILY docusate sodium (Colace) 100 mg PO DAILY levothyroxine 25 mcg PO DAILY thiamine HCl (vitamin B1) 100 mg PO DAILY 90 days tirzepatide (weight loss) (Zepbound) 5 mg (0.5 mL) subcut QWEEK vitamin A palmitate 10,000 units PO DAILY HPI Comments Details: Trino comes with his after a long gap. Unclear reason he said he was never given an appointment. Patient was interviewed with help of development technical lead. Patient said he has been doing well overall. Uses his CPAP every night. He is currently not on any neurohormonal modulation with valsartan and metoprolol as he was on the last visit. He denies any orthopnea, PND, leg edema. Denies any worsening shortness of breath. Denies any exertional chest pain. No lightheadedness, syncope. No prolonged palpitation irregular heartbeat. He is scheduled to undergo bariatric surgery in end of January. Patient as per records had no showed for his last appointment. [facility] Medical History Acute non-ST elevation myocardial infarction (NSTEMI) GERD (gastroesophageal reflux disease) Sleep apnea with use of continuous positive airway pressure (CPAP) Morbid obesity Surgical History History of kidney surgery Family History Father Coronary artery disease Diabetes Hypertension Mother Asthma Sister No problems noted. Sister No problems noted. Sister No problems noted. Sister No problems noted. Sister No problems noted. Brother No problems noted. Brother No problems noted. Son No problems noted. Daughter No problems noted. Social History Household Members: Spouse Housing: House Do you presently have visiting nurse or other home services: No Alcohol intake: never Patient Tobacco Use Status: Former Tobacco user service: No Review of Systems Const Denies chills, Denies fatigue, Denies fever(s), Denies frequent falls, Denies weakness, Denies weight gain and Denies weight loss ENT Denies dizziness Card Denies chest pain, Denies leg edema, Denies lightheadedness, Denies palpitations, Denies dyspnea, Denies dyspnea on exertion, Denies orthopnea and Denies other (loss of consciousness) Resp Denies cough, Denies dyspnea and Denies dyspnea on exertion GI Denies hematochezia and Denies change in stool character Musc Denies abnormal gait, Denies muscle weakness, Denies numbness, Denies radiating pain into limb and Denies tingling Neuro Denies abnormal gait, Denies dizziness, Denies frequent falls, Denies numbness, Denies tingling and Denies weakness Endo Denies fatigue and Denies palpitations Physical Exam Vital Signs: Last Vital Signs Pulse 72 01/17/25 08:42 BP 120/80 01/17/25 08:42 BMI result Body Mass Index 49.2 Last Vital Signs Temp 98.0 F 08/06/21 07:23 Pulse 75 08/06/21 07:23 Resp 20 08/06/21 07:23 BP 115/66 08/06/21 07:23 Pulse Ox 91 L 08/06/21 07:23 Body Mass Index 47.2 Const General: cooperative, comfortable, no acute distress, alert and awake Nutritional Appearance: obese morbidly obese Orientation/consciousness: patient oriented x3 Limitations: no limitations Neck Neck: Yes trachea midline, Yes supple and Yes no JVD Chest Chest palpation & inspection: normal inspection of the chest Resp Effort & Inspection: normal respiratory effort Auscultation: clear to auscultation bilaterally Cardio Jugular venous distension: no JVD Palpation: normal PMI Rate: regular rate Rhythm: regular rhythm Heart sounds: S1 normal heart sound present, S2 normal heart sound present, no click, no gallops, no murmurs and no rubs GI Inspection: Yes Abdominal panniculus present and Yes obesity Auscultation: normal bowel sounds Skin General skin exam: no rashes or lesions noted Neuro General: patient oriented x3 and no focal motor deficits Extrem General: Yes no clubbing, cyanosis or edema Psych Appearance: grossly normal Office Procedures EKG Details: EKG shows normal sinus rhythm with low-voltage QRS [id number], Complete Assessment & Plan Assessment & Plan (1) Cardiomyopathy: Code(s): I42.9 - Cardiomyopathy, unspecified Category: Medical Plan: Cardiomyopathy with [id number] LV systolic dysfunction with last LVEF of 40-50% with no signs or symptoms of heart failure on new no new symptoms. Cardiomyopathy process probably related to untreated sleep apnea in the past and/or obesity. Importance of neurohormonal modulation and follow-ups was discussed with him. Will restart valsartan as well as Toprol for him for neurohormonal modulation. This was discussed importance of the medication was discussed with help of development technical lead to prevent further deterioration of his heart function. Will obtain echocardiogram in near future. He was no significant change in LV ejection fraction, will continue with medical therapy as above. Continue CPAP therapy. He would benefit from weight loss program. (2) Preoperative cardiovascular examination: Code(s): Z01.810 - Encounter for preprocedural cardiovascular examination Plan: Preoperative cardiovascular risk stratification in this young to middle-aged man to undergo bariatric surgery for morbid obesity. Overall the surgery is going to benefit in the long run. However we need to evaluate his LV ejection fraction prior to the surgery. Has no signs or symptoms of heart failure. His LV ejection fraction has remained stable he is currently optimized to undergo surgery with low to intermediate risk for perioperative cardiovascular morbidity mortality. Will continue valsartan and metoprolol in perioperative period. Will follow up in the clinic in 3 months time, sooner p.r.n.. Thank you for allowing me to partake in his care Orders: Orders CA echo transthorac w con Today I42.9 - Cardiomyopathy, unspecified Basic Metabolic Panel 1 Week I42.9 - Cardiomyopathy, unspecified Medications: New valsartan 80 mg PO DAILY 30 tabs 5RF I42.9 - Cardiomyopathy, unspecified metoprolol succinate ER (Toprol XL) 50 mg PO DAILY 30 tabs 5RF I42.9 - Cardiomyopathy, unspecified Coding Level of Care Code Est Pt Level 4 (77418) Complex EM visit Add On G2211 Diagnoses Cardiomyopathy I42.9 Preoperative cardiovascular examination Z01.810 CPT Codes EKG - CPT: 37767-[id number], Complete ([id number])
== END 2025-01-17 09:26 | disposition home or self-care (01) ==
LOC: HO.HCS 07:52
PROVIDERS: Visit Provider Internal Medicine Cardiovascular Disease
DX: I42.9 Cardiomyopathy, unspecified (principal); Z01.810 Encounter for preprocedural cardiovascular examination
CPT/HCPCS: 93010; 99214

== ENCOUNTER → 2025-01-17 07:51 | Outpatient (BNVA) | payer MEDICAID, SELFPAY | PROVIDERS: Visit Provider Internal Medicine Cardiovascular Disease | DX: Z01.810 Encounter for preprocedural cardiovascular examination (principal); I42.9 Cardiomyopathy, unspecified | CPT/HCPCS: 93005; 99212 ==

== ENCOUNTER 2025-01-24 13:40 | Outpatient (AMB) | payer MEDICAID, SELFPAY ==
--- OUTSIDE RECORDS SUMMARY | 2025-01-24 14:01 | XMS_ITS | Clinical Summary ---
Author Organization [employer] Address [address] 7[address] [place] [address] Care Team Providers Care Tin Plater Name Role Phone Unavailable Primary Care Provider Unavailabl e Encounters Date Type Department Care Team Description 01/10/2025 Population Health Risk Score [facility] (C3) Department [address] [facility] [address] [place] [address] Provider, Population Health Generic 12/13/2024 Telephone [facility] MEDICINE [address] [facility] [place] [address] Laith Richards MD from Last 3 Months [...] - 19+ 3-dose series) 2001 COVID-19 Vaccine ( - 2023-2 5 season) 2024 03/12/2021, 12/26/2020 Influenza Vaccine [...] patient's age to complete this topic Insurance [facility]
--- NOTE | 2025-01-24 14:05 | A.OFFVIS_ITS ---
Vital Signs 3 01/24/25 14:07 Height 5 ft 9 in Weight 331 lb BMI 48.9 BP 110/72 Blood Pressure Location Rt brachial Position Sitting Pulse 82 Pulse Source Pulse Oximeter Pulse Oximetry (%) 94 Oxygen Delivery Method Room Air Intake Visit Reasons: Follow Up Intake Note: Patient presents follow up for GIBSON, Compliance in chart Instructor Programmable Controllers Required: No Accompanied by: Self / Same As Patient Allergies Aspirin Allergy (Unknown, Uncoded 01/24/25 14:09) swelling Penicillin Allergy (Unknown, Uncoded 01/24/25 14:09) swelling HPI Comments Details: 44-year-old male presents for follow-up of sleep apnea. 09/17/2023, in-lab split night PSG study revealed severe obstructive sleep apnea with AHI 107 per hour and O2 wesly 48%, mood stabilization of respirations and oxygenation at CPAP set to 20 cm H2O. His weight at the time of the study was 371 lb. Patient reports he consistently uses his CPAP machine. He overall sleeps well with the CPAP machine, and has good daytime energy. However, he may miss using his CPAP or is unable to use it greater than 4 hours, as at times will wake up with abdominal bloating and discomfort- which he attributes to using a smaller CPAP mask than what is usually prescribed to him (has had to borrow 1 of his 's extra CPAP mask, as he has not received a new 1 in a long time). He typically sleeps flat with 1 pillow. He states he cleans his CPAP supplies regularly. He is using distilled water with his CPAP water reservoir. Patient is working with [facility], he has been slowly losing weight, and is scheduled to have bariatric surgery at the end of this month. 30 day CPAP compliance report, 12/25/2024 - 01/23/2025 [facility] care Overall usage 70% Usage greater than 4 hours 67% Average usage on days used 6 hours and 20 minutes CPAP 20 cm H2O with EPR 3 Median leaks 0 L/min Residual AHI 9.1 per hour. [facility] Medical History Acute non-ST elevation myocardial infarction (NSTEMI) GERD (gastroesophageal reflux disease) Sleep apnea with use of continuous positive airway pressure (CPAP) Morbid obesity Surgical History History of kidney surgery Family History Father Coronary artery disease Diabetes Hypertension Mother Asthma Sister No problems noted. Sister No problems noted. Sister No problems noted. Sister No problems noted. Sister No problems noted. Brother No problems noted. Brother No problems noted. Son No problems noted. Daughter No problems noted. Social History Household Members: Spouse Housing: House Do you presently have visiting nurse or other home services: No Alcohol intake: never Patient Tobacco Use Status: Former Tobacco user service: No Physical Exam Vital Signs: Last Vital Signs Pulse 82 01/24/25 14:07 BP 110/72 01/24/25 14:07 Pulse Ox 94 01/24/25 14:07 Oxygen Delivery Method Room Air 01/24/25 14:07 BMI result Body Mass Index 48.9 Const General: no acute distress Orientation/consciousness: patient oriented x3 Resp Effort & Inspection: normal respiratory effort and able to speak in complete sentences Neuro General: patient oriented x3 Psych Mental Status: mental status grossly normal Speech and movement: Clear speech present Attitude: cooperative Assessment & Plan Assessment & Plan (1) Sleep apnea with use of continuous positive airway pressure (CPAP): Code(s): G47.30 - Sleep apnea, unspecified Category: Medical Plan For GIBSON: Continue CPAP 20 cmH2O w/ EPR 3 nightly > 4 hours, as pt continues to have good clinical effect from use. * We will request new CPAP supplies including refill of his CPAP mask, as patient is better able to tolerate in use his CPAP machine more when he has the correct sized mask. * Clean CPAP machine and supplies routinely. * Change CPAP supplies routinely. * Use distilled water in CPAP water reservoir. Consider follow-up in-lab sleep study after bariatric surgery and patient has had a sustained weight loss- to assess status of sleep apnea. Pt to contact us or respiratory company with any questions or concerns. Pt to follow-up in 6 months or sooner prn. Coding Level of Care Code Est Pt Level 3 (65390) Diagnoses Sleep apnea with use of continuous positive airway pressure (CPAP) G47.30
[2025-01-24 14:07] VITALS: BP 110/72; PULSE 82; O2SAT 94; BMI 48.9
== END 2025-01-24 14:47 | disposition home or self-care (01) ==
LOC: HO.HSMS 13:40
PROVIDERS: Visit Provider Nurse Practitioner Family
DX: G47.30 Sleep apnea, unspecified (principal)
CPT/HCPCS: 99213

== ENCOUNTER → 2025-01-24 13:40 | Outpatient (BNVA) | payer MEDICAID, SELFPAY | PROVIDERS: Visit Provider Nurse Practitioner Family | DX: G47.30 Sleep apnea, unspecified (principal) | CPT/HCPCS: 99212 ==

== ENCOUNTER → 2025-01-25 10:26 | Outpatient (REF) | payer MEDICAID, SELFPAY ==
--- NOTE | 2025-01-25 10:29 | CA_ITS ---
Transthoracic Echocardiogram Patient (Last, First, Middle): Trino Pink, Gender: Male Date of : 1980 Age: 44 Procedure Date: 01/25/2025 Procedure Type: Transthoracic Echocardiogram Location: OP Height: 175.26 cm Weight: 150.6 kg BSA: 2.56 m2 Heart Rate: 72 bpm BP: 120 / 78 mmHg Research Project Manager: CALLIE Referring MD: Kush Alvarez MD Taxation Economist: Kush Alvarez MD Symptoms: I42.9 - Cardiomyopathy, unspecified Study Quality: Adequate w contrast ECG Rhythm: Sinus Conclusions: - 1. Low normal LV ejection fraction of 50-55% with grade 1 diastolic dysfunction 2. Normal cardiac valvular Dopplers 3. Upper limits of normal ascending aortic size 4. No pericardial effusion him Findings Procedure Information Contrast agent, definity, is being given per protocol without apparent complications. Left Ventricle Normal left ventricular cavity size. There is normal left ventricular wall thickness. The left ventricular systolic function is low normal. Spectral Doppler is indicative of an impaired relaxation filling pattern. E/E prime ratio is <8, consistent with normal filling pressures. Evidence suggests grade I (mild) diastolic dysfunction. Right Ventricle Normal right ventricular cavity size. Atria The left atrium is normal in size. Interatrial shunt cannot be excluded. The right atrium was not well visualized. Aortic Valve The aortic valve was not well visualized. There is no aortic valve stenosis. There is no aortic valve regurgitation. Mitral Valve Likely normal mitral valve structure and function. There is trace mitral valve regurgitation. There is no mitral valve stenosis. Pulmonic Valve The pulmonic valve was not well visualized. Tricuspid Valve The tricuspid valve was not well visualized. Tricuspid regurgitation envelope is inadequate for calculation of right ventricular systolic pressure. Great Vessels All visible segments of the aorta are normal in size. The pulmonary artery was not well visualized. Venous The inferior vena cava is normal in size. Pericardium/Pleural There is no evidence of pericardial effusion. Prior Study Comparison Changes noted compared to prior study dated: 04/14/2023. LV function has marginally improved Measurements 2D Linear Measurements IVSd: 0.86 0.6-0.9/0.6-1.0 cm LVIDd: 5.28 3.9-5.3/4.2-5.9 cm LVIDd Index: 2.06 2.4-3.2/2.2-3.1 cm/m2 LVIDs: 4.01 2.0-3.6 cm LVPWd: 0.81 0.7-1.1 cm LA Diam: 4.60 2.7-3.8/3.0-4.0 cm LAIDs Index: 1.80 1.5-2.3 cm/m2 LV Mass: 195.14 67-162/88-224 g LV Mass Index: 76.23 43-95/49-115 g/m2 LVOT Diam: 2.40 3.0+(-)1.3 cm 2D Systolic Function EF 4C: 49.30 >55% EF 2C: 55.80 >55% EF BiP: 52.20 >55% Mitral Valve MV Pk E: 0.59 MV PK A: 0.73 MV Decel Time: 241.00 E/A: 0.80 E'Lateral: 12.90 E'Medial: 5.98 E/E' Med: 9.80 E/E' Lat: 4.60 PHT: 71.00 MVA PHT: 3.[address] [place]: 2.43 Aortic Valve AoV Pk Dewey: 1.01 AoV Pk Grad: 4.00 OMKAR: 3.59 LVOT LVOT Pk Dewey: 0.80 LVOT Mn Dewey: 0.53 LVOT VTI: 0.16 LVOT Pk Grad: 3.00 LVOT Mn Grad: 1.00 LVOT Diam: 2.40 LVOT Area: 4.52 Diastolic Function MV Pk E: 0.59 MV Pk A: 0.73 E/A: 0.80 E'Medial: 5.98 E/E' Med: 9.80 E' Laterial: 12.90 E/E' Lat: 4.60 Right Ventricle TAPSE (mm): 24.20 TVS' Dewey: 12.40 Tricuspid Valve RA Press: 8.00 Great Vessels Aorta Sinus of Valsalva: 3.30 2.0-3.5 cm Ao Asc: 3.50 2.1-3.4 cm Ao Arch: 2.80 Pulmonary Valve PV Pk Dewey: 1.03 Peak PV Grad: 4.00 Updated in Other Vendor System with Status of Final Kush Alvarez MD electronically signed on 01/26/2025 4:19:42 PM with status of Final
--- OUTSIDE RECORDS SUMMARY | 2025-01-25 11:32 | XMS_ITS | Clinical Summary ---
Author Organization [employer] Address [address] [facility] [address] 7t [place] [address] Care Team Providers Care Probate Clerk Name Role Phone Unavailable Primary Care Provider Unavailabl e Encounters Date Type Department Care Team Description 01/10/2025 Population Health Risk Score [facility] (C3) Department [address] [facility] [address] [place] [address] Provider, Population Health Generic 12/13/2024 Telephone [facility] MEDICINE [address] [facility] [place] [address] Laith Richards MD from Last 3 Months [...] patient's age to complete this topic Insurance [facility] PART[facility]
--- OUTSIDE RECORDS SUMMARY | 2025-01-25 11:32 | XMS_ITS | Clinical Summary ---
Author Organization [facility] Address [address] [place] [address] Care Team Providers Care Make Up Worker Name Role Phone Heber Benson Primary Care Provider [phone] Source Comments PLEASE NOTE, if this patient [...] Date Severe obesity (BMI 35.0-35.9 with comorbidity) ([facility]) 05/27/2022 ASCVD (arteriosclerotic cardiovascular disease) 08/29/2021 [...] Monitoring 05/27/2023 05/27/2022 Hypertension Screening (#1) 12/18/2023 [id number] ( season) 2024 021, 12/26/2020 Imm-Influenza (#1) [...] Severe obesity (BMI 35.0-35.9 with comorbidity) ([facility]) Hypercholesteremia Routine adult health maintenance COMPREHENSIVE METABOLIC PANEL Routine 05/27/2022 9:56 AM EDT Severe obesity (BMI 35.0-35.9 with comorbidity) ([facility]) Hypercholesteremia Routine adult health maintenance LIPID PANEL Routine 05/27/2022 9:56 AM EDT Severe obesity (BMI 35.0-35.9 with comorbidity) ([facility]) Hypercholesteremia Routine adult health maintenance HIV 1/2 [...] TO FT4 6.25(H) 0.40 - 4.50 mIU/L [facility] Blood Blood / Unknown 05/27/2022 9 :56 AM EDT 05/27/2022 9:57 AM EDT [facility] - BLOOD DRAW Final Result [facility] [address] [address], [facility] [address] [place] [address],[place] [address] * (ABNORMAL) LIPID PANEL (05/27/2022 9:56 AM EDT) CHOLESTEROL, TOTAL 165 <200 mg/dL [facility] HDL CHOLESTEROL 37(L) > OR = 40 mg/dL [facility] TRIGLYCERIDES 118 <150 mg/dL [facility] LDL-CHOLESTEROL 107(H) 99 mg/dL (calc) [facility] Comment: Reference range: <100 Desirable range <100 mg/dL for primary prevention; ?? <70 mg/dL for patients with CHD or diabetic patients with > or = 2 CHD risk factors. LDL-C is now calculated using the Esau-Lorin calculation, which is a validated novel method providing better accuracy than the Friedewald equation in the estimation of LDL-C. Easu HATFIELD et al. JAYLA. 2013;310(19): 2583-5378 (http://education.[employer]/faq/SCT364) CHOL/HDLC RATIO 4.5 <5.0 (calc) [facility] NON-HDL CHOLESTEROL 128 <130 mg/dL (calc) [facility] Comment: For patients with diabetes plus 1 major ASCVD risk factor, treating to a non-HDL-C goal of <100 mg/dL (LDL-C of <70 mg/dL) is considered a therapeutic option. Blood Blood / Unknown 05/27/2022 9 :56 AM EDT 05/27/2022 9:57 AM EDT [facility] - BLOOD DRAW Final Result [facility] [address] [address], [email or web address] [facility] [address] [address] * (ABNORMAL) COMPREHENSIVE METABOLIC PANEL (05/27/2022 9:56 AM EDT) GLUCOSE 100(H) 65 - 99 mg/dL [email or web address] [facility] Comment: ?Fasting reference interval For someone without known diabetes, a glucose value between 100 and 125 mg/dL is consistent with prediabetes and should be confirmed with a follow-up test. UREA NITROGEN (BUN) 15 7 - 25 mg/dL [facility] CREATININE (blood) 0.67 0.60 - 1.29 mg/dL [facility] EGFR 121 > OR = 60 mL/min/1 .73m2 [email or web address] [facility] Comment: The eGFR is based on the CKD-EPI 2020 equation. To calculate the new eGFR from a previous Creatinine or Cystatin C result, go to https://www.kidney.org/professionals/ kdoqi/gfr%5Fcalculator BUN/CREATININE RATIO NOT APPLICABLE 6 - 22 [email or web address] [facility] SODIUM 138 135 - 146 mmol/L [facility] POTASSIUM 4.3 3.5 - 5.3 mmol/L [facility] CHLORIDE 103 98 - 110 mmol/L [facility] CARBON DIOXIDE 29 20 - 32 mmol/L [facility] [place] [employer] CALCIUM 9.3 8.6 - 10.3 mg/dL [email or web address] [facility] PROTEIN, TOTAL 8.0 6.1 - 8.1 g/dL [email or web address] [facility] ALBUMIN 4.2 3.6 - 5.1 g/dL [facility] GLOBULIN 3.8(H) 1.9 - 3.7 g/dL (calc) [facility] ALBUMIN/GLOBUL IN RATIO 1.1 1.0 - 2.5 (calc) [facility] BILIRUBIN, TOTAL 0.3 0.2 - 1.2 mg/dL [facility] ALKALINE PHOSPHATASE 82 36 - 130 U/L [facility] AST 16 10 - 40 U/L [facility] ALT 19 9 - 46 U/L [facility] Blood Blood / Unknown 05/27/2022 9 :56 AM EDT 05/27/2022 9:57 AM EDT us [facility] - BLOOD DRAW Edited Result - Final Performing Organization Address [facility]/ZIP Co de Phone Number [facility] [address] [address], [employer] [address] [place] [address] * HEPATITIS C AB W/RFLX HCV RNA, QT, RT PCR (08/29/2021 3:51 PM EST) HEPATITIS C ANTIBODY NON-REACT JIMMIE NON-REACT JIMMIE [facility] SIGNAL TO CUT-OFF 0.16 <1.00 [facility] Comment: HCV antibody was non-reactive. There is no laboratory evidence of HCV infection. In most cases, no further action is required. However, if recent HCV exposure is suspected, a test for HCV RNA (test code 81053) is suggested. For additional information please refer to http://education.Orcan [employer]/faq/FVN08a4 (This link is being provided for informational/ educational purposes only.) Blood Blood / Unknown 08/29/2021 3 :51 PM EST 08/29/2021 3:51 PM EST us [facility] - BLOOD DRAW Final Result Performing Organization Address City/[facility]/ZIP Co de Phone Number [facility] [address] [address], [employer] [address] [place] [address] * HIV 1/2 AG & AB W/RFLX (4TH GEN) (08/29/2021 3:51 PM EST) HIV AG/AB, 4TH GEN NON-REAC TIVE NON-REAC TIVE [facility] Comment: HIV-1 antigen and HIV-1/HIV-2 antibodies [...] ?? For additional information please refer to http://education.[employer]/faq/DNP180 (This link is being provided for informational/ educational purposes only.) The performance of this assay has not been clinically validated in patients less than 2 years old. Blood Blood / Unknown 08/29/2021 3 :51 PM EST 08/29/2021 3:51 PM EST [facility] - BLOOD DRAW Final Result [facility] [address] [address], [facility] [address],[place] [address] from Last 3 Months or Most Recently Relevant to Health Maintenance Insurance [employer] Care Teams Make Up Worker Relationship Specialty Start Date End Date Heber Benson PA [address] [place] [address] PCP - General Internal Medicine 09/09/17
== END ==
LOC: HO.CARD 10:26
PROVIDERS: Visit Provider Internal Medicine Cardiovascular Disease
DX: I42.9 Cardiomyopathy, unspecified (principal)
CPT/HCPCS: 93306; Q9957

== ENCOUNTER → 2025-01-25 10:29 | Outpatient (BNV) | payer MEDICAID, SELFPAY | PROVIDERS: Visit Provider Internal Medicine Cardiovascular Disease | DX: I34.0 Nonrheumatic mitral (valve) insufficiency (principal) | CPT/HCPCS: 93306 ==

== ENCOUNTER 2025-01-31 08:09 | Outpatient (AMB) | payer MEDICAID, SELFPAY ==
--- OUTSIDE RECORDS SUMMARY | 2025-01-31 08:12 | XMS_ITS | Clinical Summary ---
Author Organization [facility] Address [address] [place] [address] Care Team Providers Care Robot Operator Name Role Phone Heber Benson Primary Care Provider [phone] Source Comments PLEASE NOTE, if this patient [...] Severe obesity (BMI 35.0-35.9 with comorbidity) ([facility]) 05/27/2022 ASCVD (arteriosclerotic cardiovascular disease) 08/29/2021 Overview [...] - 19 + 3-dose series) 2001 Annual Wellness (Adult): Ind icated (All Coverage) 05/27/2023 05/27/2022, 09/03/2017 Lipid Screening 05/27/2023 05/27/2022, 08/15, 09/09/2017 TSH Monitoring 05/27/2023 05/27/2022 Hypertension Screening (#1) 12/18/2023 [id number] ( season) 2024 021, 12/26/2020 Imm-Influenza (#1) [...] EDT Severe obesity (BMI 35.0-35.9 with comorbidity) ([facility]) Hypercholesteremia Routine adult health maintenance COMPREHENSIVE METABOLIC PANEL Routine 05/27/2022 9:56 AM EDT Severe obesity (BMI 35.0-35.9 with comorbidity) ([facility]) Hypercholesteremia Routine adult health maintenance LIPID PANEL Routine 05/27/2022 9:56 AM EDT Severe obesity (BMI 35.0-35.9 with comorbidity) ([facility]) Hypercholesteremia Routine adult health maintenance [...] TO FT4 6.25(H) 0.40 - 4.50 mIU/L [employer] Blood Blood / Unknown 05/27/2022 9 :56 AM EDT 05/27/2022 9:57 AM EDT [facility] - BLOOD DRAW Final Result [facility] [address] [address], [employer] [address] [place] [address],[place] [address] * (ABNORMAL) LIPID PANEL (05/27/2022 9:56 AM EDT) CHOLESTEROL, TOTAL 165 <200 mg/dL [employer] HDL CHOLESTEROL 37(L) > OR = 40 mg/dL [employer] TRIGLYCERIDES 118 <150 mg/dL [employer] LDL-CHOLESTEROL 107(H) 99 mg/dL (calc) [employer] Comment: Reference range: <100 Desirable range <100 mg/dL for primary prevention; ?? <70 mg/dL for patients with CHD or diabetic patients with > or = 2 CHD risk factors. LDL-C is now calculated using the Reji calculation, which is a validated novel method providing better accuracy than the Friedewald equation in the estimation of LDL-C. Esau HATFIELD et al. JAYLA. 2013;310(19): 6604-7657 (http://education.Apollidon.[employer]/faq/HUW433) CHOL/HDLC RATIO 4.5 <5.0 (calc) [employer] NON-HDL CHOLESTEROL 128 <130 mg/dL (calc) [employer] Comment: For patients with diabetes plus 1 major ASCVD risk factor, treating to a non-HDL-C goal of <100 mg/dL (LDL-C of <70 mg/dL) is considered a therapeutic option. Blood Blood / Unknown 05/27/2022 9 :56 AM EDT 05/27/2022 9:57 AM EDT [facility] - BLOOD DRAW Final Result [facility] [address] [address], [facility] [address],[place] [address] * (ABNORMAL) COMPREHENSIVE METABOLIC PANEL (05/27/2022 9:56 AM EDT) GLUCOSE 100(H) 65 - 99 mg/dL [facility] Comment: ?Fasting reference interval For someone without known diabetes, a glucose value between 100 and 125 mg/dL is consistent with prediabetes and should be confirmed with a follow-up test. UREA NITROGEN (BUN) 15 7 - 25 mg/dL [facility] [employer] [employer] CREATININE (blood) 0.67 0.60 - 1.29 mg/dL [employer] EGFR 121 > OR = 60 mL/min/1 .73m2 [facility] Comment: The eGFR is based on the CKD-EPI 2020 equation. To calculate the new eGFR from a previous Creatinine or Cystatin C result, go to https://www.kidney.org/professionals/ kdoqi/gfr%5Fcalculator BUN/CREATININE RATIO NOT APPLICABLE 6 - 22 [employer] SODIUM 138 135 - 146 mmol/L [employer] POTASSIUM 4.3 3.5 - 5.3 mmol/L [employer] CHLORIDE 103 98 - 110 mmol/L [employer] CARBON DIOXIDE 29 20 - 32 mmol/L [facility] [employer] [employer] CALCIUM 9.3 8.6 - 10.3 mg/dL [employer] PROTEIN, TOTAL 8.0 6.1 - 8.1 g/dL [employer] ALBUMIN 4.2 3.6 - 5.1 g/dL [facility] GLOBULIN 3.8(H) 1.9 - 3.7 g/dL (calc) [facility] ALBUMIN/GLOBUL IN RATIO 1.1 1.0 - 2.5 (calc) [facility] BILIRUBIN, TOTAL 0.3 0.2 - 1.2 mg/dL [facility] ALKALINE PHOSPHATASE 82 36 - 130 U/L [facility] AST 16 10 - 40 U/L [facility] ALT 19 9 - 46 U/L [facility] Blood Blood / Unknown 05/27/2022 9 :56 AM EDT 05/27/2022 9:57 AM EDT us [facility] - BLOOD DRAW Edited Result - Final Performing Organization Address [facility]/ZIP Co de Phone Number [facility] [address] [address], [facility] [address],[facility] [place] [address] * HEPATITIS C AB W/RFLX HCV RNA, QT, RT PCR (08/29/2021 3:51 PM EST) HEPATITIS C ANTIBODY NON-REACT JIMMIE NON-REACT JIMMIE [facility] SIGNAL TO CUT-OFF 0.16 <1.00 [facility] Comment: HCV antibody was non-reactive. There is no laboratory evidence of HCV infection. In most cases, no further action is required. However, if recent HCV exposure is suspected, a test for HCV RNA (test code 02612) is suggested. For additional information please refer to http://education.[employer]/faq/LCY15v8 (This link is being provided for informational/ educational purposes only.) Blood Blood / Unknown 08/29/2021 3 :51 PM EST 08/29/2021 3:51 PM EST us [facility] - BLOOD DRAW Final Result Performing Organization Address [facility]/ZIP Co de Phone Number [facility] [address] [address], [employer] [facility] [address],[place] [address] * HIV 1/2 AG & AB W/RFLX (4TH GEN) (08/29/2021 3:51 PM EST) HIV AG/AB, 4TH GEN NON-REAC TIVE NON-REAC TIVE [facility] Comment: HIV-1 antigen and HIV-1/HIV-2 antibodies were [...] ?? For additional information please refer to http://education.[employer]/faq/LJU528 (This link is being provided for informational/ educational purposes only.) The performance of this assay has not been clinically validated in patients less than 2 years old. Blood Blood / Unknown 08/29/2021 3 :51 PM EST 08/29/2021 3:51 PM EST [facility] - BLOOD DRAW Final Result [facility] [address] [address], [employer] [facility] [address] [address] from Last 3 Months or Most Recently Relevant to Health Maintenance Insurance [employer] Care Teams Robot Operator Relationship Specialty Start Date End Date Heber Benson PA [address] [place] [address] PCP - General Internal Medicine 09/09/17
--- NOTE | 2025-01-31 10:15 | A.OFFVIS_ITS ---
VS Expanded 01/31/25 10:16 Height 5 ft 9 in Weight 325 lb 3 oz BMI 48.0 Body Fat % 52.5 Body Fat Mass 170.8 Fat Free Mass 154.6 Visceral Fat Rating 28 Body Water % 34.3 Body Water Mass 111.5 Basal Metabolic Rate/Score 1,898 Intake Visit Reasons: TV Pre Op LSG 02/10/25 *RESEARCH AND EVALUATION MANAGER* Dialysis Biomed Technician Required: Yes Dialysis Biomed Technician Services: Dialysis Biomed Technician Present Information Interpreted: clinical only Allergies Aspirin Allergy (Severe, Uncoded 01/31/25 10:33) Anaphylaxis Penicillin Allergy (Severe, Uncoded 01/31/25 10:33) Anaphylaxis Medication List - Last Reconciled 01/31/25 by Sonido Tovar MD cholecalciferol (vitamin D3) 125 mcg PO DAILY docusate sodium (Colace) 100 mg PO DAILY levothyroxine 25 mcg PO DAILY metoprolol succinate ER (Toprol XL) 50 mg PO DAILY ondansetron 4 mg PO Q12H pantoprazole 40 mg PO DAILY polyethylene glycol 3350 17 grams PO DAILY sucralfate 10 mL PO BID thiamine HCl (vitamin B1) 100 mg PO DAILY 90 days tirzepatide (weight loss) (Zepbound) 5 mg subcut .QMONDAY valsartan 80 mg PO DAILY vitamin A palmitate 10,000 units PO DAILY HPI HPI TV Pre Op LSG 02/10/25 *RESEARCH AND EVALUATION MANAGER*: Details: Start time: 10.07am, End time: 10.43am ?I spent 31 minutes speaking with the patient on the phone plus an additional 5 minutes reviewing and updating records for a total of 36 minutes HPI Comments Details: Overall weight loss: 35.1 lbs, or 9.74% TBWL Is doing the premade Pure protein shakes, 2 Pure protein bars and one meal (13 forks of protein and 13 forks of salad or vegetables) Exercise: [facility] Medical History (Updated 01/26/25 @ 12:33 by Bettie Serrano RN) Asthma Acute non-ST elevation myocardial infarction (NSTEMI) GERD (gastroesophageal reflux disease) Sleep apnea with use of continuous positive airway pressure (CPAP) Morbid obesity Surgical History (Updated 01/26/25 @ 12:38 by Bettie Serrano RN) History of surgery History of kidney surgery Family History Father Coronary artery disease Diabetes Hypertension Mother Asthma Sister No problems noted. Sister No problems noted. Sister No problems noted. Sister No problems noted. Sister No problems noted. Brother No problems noted. Brother No problems noted. Son No problems noted. Daughter No problems noted. Social History (Updated 01/26/25 @ 12:39 by Bettie Serrano RN) Household Members: Spouse, Family and Children Housing: House Are you a primary companion caregiver to a significant other at home: No Do you presently have visiting nurse or other home services: No Alcohol intake: never Patient Tobacco Use Status: Former Tobacco user Tobacco use type: Cigarette service: No Telehealth Telehealth Telehealth Platform: Telephone Location of provider rendering services: practice address Location of patient: address on file Patient Identification confirmed using: Name, : Yes Telehealth method: voice only Patient verbally consented to treatment: Yes Patient verbally consented to billing insurance company: Yes Patient informed of any privacy concerns related to visit: Yes Minutes spent on Phone/Video with Pt.: 36 Assessment & Plan Assessment & Plan (1) Morbid obesity: Code(s): E66.01 - Morbid (severe) obesity due to excess calories Category: Medical Plan: 1. Plan for lap sleeve gastrectomy including upper GI endoscopy. All tests has been completed and reviewed and the patient is cleared for the surgery. ?If diaphragmatic or ventral hernias are present at time of surgery, these will be repaired laparoscopically as well. Risks and complications were discussed in d etail including possible conversion to an open procedure, anastomotic leak, bleeding requiring transfusion, small bowel obstruction, , DVT and pulmonary embolism, cardiac, or pulmonary complications, as intermediate accountant complications such as anastomotic ulcer, insufficient weight loss and vitamin deficiencies. I emphasized the importance of close follow-up, adherence to instructions and good communication. So far he has proven to be an excellent communicator and very compliant with all our directions accomplishing a great weight loss. I believe that he is an excellent candidate and he is ready. 2. Preop prescriptions were provided and explained the purpose of each one. Need to be purchased preop. Start Pantoprazole now as you get it from the pharmacy, 1 pill per day. Sucralfate and Zofran are for after surgery as needed. 3. Bowel prep: please do 7 packets ?of Miralax mixing each one with a an 8oz glass of water, crystal light, gatorade zero, or propel ?on 02/08/25 and the same amount on 02/09/25. The Miralax you begin with one packet at a time in 8oz water or crystal light, gatorade zero, or propel ?as early in the day as you can and you do them back to back until you finish them. Continue the protein shakes during ?the bowel prep. 4. Needs to purchase 1oz medicine cups . 5. Needs to purchase Children's liquid Tylenol for postop pain control. 6. He needs to stop the Zepbound after today 01/31/25. Avoid aspirin, motrin, Advil, Aleve, Meloxicam, Excedrin, Ibuprofen, Naproxyn. Tylenol is OK. 7. He needs to purchase the Celebrate multivitamins from the hospital's gift shop, chewable or pills whatever you prefer. 8. Will do basic preop blood work-up any day between Friday08/19/22 and Friday08/23/22 fasting for 12 hours and is scheduled to see the Anesthesiologist prior to the day of surgery. 9. Please measure your blood pressure every morning as of tomorrow and send me the readings daily 10. Importance of adherence to postop folllow-up and recommendations was underscored and he understands that. 11. Stop food and bars as of tomorrow 02/01/25 and continue with 2 premade Pure protein protein shakes (6oz of Pure protein shake mixed with 2oz almond milk) at 9am-11am and 12pm-2pm and three WHOLE-BOTTLE Pure protein shakes at 3pm-5pm, 6pm-8pm and 9pm-11pm 12. No soups, broths or V8 13. The patient's?medical?history has been reviewed and they are considered low risk for post op DVT and therefore DVT prophylaxis is not considered necessary. Travel after surgery was reviewed. The patient has not disclosed any travel plans during the first 30 days after surgery and they have been advised that within the first 30 days after surgery any bus, plane, train or car travel over 2 hours in duration is contraindicated due to the possibility of developing blood clots from immobility. Any travel, needs to include periods of ambulation of 10 minutes in duration every 2 hours.? Patient was instructed to discuss any plans for travel during this period with their bariatric surgeon.? 14. Use your CPAP daily and bring it to the hospital with your mask 15. Please take at the day of surgery the following medications: NONE 17. Absolutely no smoking or vaping, or marijuana until the surgery and for at least the first 4 weeks. Only nicotine patches are allowed. 18. Send me weight measurements tomorrow Friday02/01/25, on Friday02/06/25 and then on 02/10/25, the day of surgery before you go to the hospital. 19. Avoid any steroids by mouth for any reason. Let me know if someone prescribes them to you 20. These instructions supersede anything else you read in the handbook, anything you watched in videos or classes or you were told by any other provider. If there is any conflict, you follow the above instructions and nothin g else. Orders: Orders Prothrombin Time INR Today E03.9 - Hypothyroidism, unspecified, E66.01 - Morbid (severe) obesity due to excess calories Type and Screen Today E03.9 - Hypothyroidism, unspecified, E66.01 - Morbid (severe) obesity due to excess calories Partial Thromboplastin Time Today E03.9 - Hypothyroidism, unspecified, E66.01 - Morbid (severe) obesity due to excess calories Hemoglobin A1c Today E03.9 - Hypothyroidism, unspecified, E66.01 - Morbid (severe) obesity due to excess calories Lipid Panel Today E03.9 - Hypothyroidism, unspecified, E66.01 - Morbid (severe) obesity due to excess calories Complete Blood Count Auto Diff Today E03.9 - Hypothyroidism, unspecified, E66.01 - Morbid (severe) obesity due to excess calories Insulin Today E03.9 - Hypothyroidism, unspecified, E66.01 - Morbid (severe) obesity due to excess calories Comprehensive Met. Panel Today E03.9 - Hypothyroidism, unspecified, E66.01 - Morbid (severe) obesity due to excess calories TSH reflex Free T4 Today E03.9 - Hypothyroidism, unspecified, E66.01 - Morbid (severe) obesity due to excess calories C Reactive Protein Today E03.9 - Hypothyroidism, unspecified, E66.01 - Morbid (severe) obesity due to excess calories Medications: New ondansetron Only take one every 12 hours as needed if you have nausea 4 mg PO Q12H 20 tabs 0RF nausea and vomiting polyethylene glycol 3350 Mix each measuring cup with 8oz of water, Crystal light, or Gatorade zero, or Propel and do 7 measuring cups on 02/08/25 and another 7 measuring cups on 02/09/25 17 grams PO DAILY 238 grams 0RF Z01.818 - Encounter for other preprocedural examination pantoprazole 40 mg PO DAILY 90 tabs 0RF K21.9 - Gastro-esophageal reflux disease without esophagitis sucralfate 10 mL PO BID 600 mL 2RF K21.9 - Gastro-esophageal reflux disease without esophagitis
[2025-01-31 10:16] VITALS: BMI 48.0
== END 2025-01-31 10:44 | disposition home or self-care (01) ==
LOC: HO.HBS 08:09
PROVIDERS: Visit Provider Surgery
DX: E66.01 Morbid (severe) obesity due to excess calories (principal)
CPT/HCPCS: 99214

== ENCOUNTER → 2025-01-31 08:09 | Outpatient (BNVA) | payer MEDICAID, SELFPAY | PROVIDERS: Visit Provider Surgery ==

== ENCOUNTER → 2025-02-02 08:36 | Outpatient (BNVA) | payer MEDICAID, SELFPAY | PROVIDERS: Visit Provider Physician Assistant Surgical ==

== ENCOUNTER 2025-02-10 06:05 | Inpatient (IN) | payer MEDICAID, SELFPAY ==
[2025-01-26 12:34] VITALS: BMI 48.0
[2025-02-02 09:49] LABS: MANUAL DIFF FLAG NO
[2025-02-02 10:35] LABS: Basophils Percent Auto 0.3 % (0-2); Eosinophils Absolute Auto 0.1 X10*3/uL (0.0-0.4); Eosinophils Percent Auto 1.1 % (0-4); Hemoglobin 16.5 g/dl (14.0-18.0); Imm Gran Abs Auto 0.03 X10*3/uL (0.00-0.03); Imm Gran Pct Auto 0.4 % (0.0-0.4); Lymphocytes Absolute Auto 1.8 X10*3/uL (1.2-4.9); Lymphocytes Percent Auto 23.7 % (20-40); Mean Corpuscular Hemoglobin 27.9 pg (27.0-33.0); Mean Corpuscular Volume 84.5 fL (80.0-98.0); Mean Platelet Volume 10.9 fL (9.4-12.4); Monocytes Absolute Auto 0.7 X10*3/uL (0.1-1.2); Monocytes Percent Auto 9.1 % (2-11); Neutrophils Percent Auto 65.4 % (45-73); Platelet Count 215 X10*3/uL (160-400); Red Blood Count 5.92 X10*6/uL (4.60-5.80); Red Cell Distribution Width 14.4 % (11.0-16.0); White Blood Count 7.6 X10*3/uL (4.8-10.8)
[2025-02-02 10:40] LABS: INTERNATIONAL NORM RATIO 1.2 (0.9-1.1); Prothrombin Time 14.2 SEC (10.9-12.4)
[2025-02-02 10:42] LABS: Partial Thromboplastin Time 33.9 SEC (26.0-36.8)
[2025-02-02 11:08] LABS: Estimated Average Glucose 117 mg/dL; Hemoglobin A1C 162.4587 umol/L; Hemoglobin A1c % 5.7 % (<6.0); Total Hemoglobin (HGBA1C) 4176.2217 umol/L
[2025-02-02 11:14] LABS: Alanine Aminotransferase 36 U/L (0-40); Albumin Level 4.4 g/dL (3.5-5.0); Anion Gap 12 (12-20); Aspartate Amino Transferase 35 U/L (5-37); Bilirubin Total 0.7 mg/dL (0.0-1.0); Blood Urea Nitrogen 16 mg/dL (9-16); C Reactive Protein 1.14 mg/dL (< or = 0.50); Calcium 9.9 mg/dL (8.4-10.2); Carbon Dioxide 27 mmol/L (22-29); Chloride 104 mmol/L (96-108); Cholesterol 147 mg/dL (<200); Creatinine Clr Calc Pharmacy 179.2; Estimated Glomerular Filt Rate > 60; Glucose Random 88 mg/dL (60-115); HDL Cholesterol 28 mg/dL (>40); LDL Cholesterol Calculated 103 mg/dL (<100); Potassium 3.9 mmol/L (3.3-5.1); Sodium 139 mmol/L (135-145); Total Protein 8.3 g/dL (6.5-8.0); Triglycerides 83 mg/dL (<150)
[2025-02-02 11:59] LABS: Alkaline Phosphatase 84 U/L (39-117); Insulin 13 uU/mL (2-29); TSH reflex Free T4 3.93 uIU/mL (0.32-4.0)
[2025-02-10] VITALS (8 sets, daily range): BP systolic 110–138; BP diastolic 76–86; PULSE 91–101; RESP 16–20; TEMP 36.6–36.8; O2SAT 92–96; BMI 46.3
--- OUTSIDE RECORDS SUMMARY | 2025-02-10 06:10 | XMS_ITS | Clinical Summary ---
Author Organization [facility] Address [address] [place] [address] Care Team Providers Care Regional Operations Director Name Role Phone Heber Benson Primary Care Provider [phone] Source Comments PLEASE NOTE, if this patient [...] Date Severe obesity (BMI 35.0-35.9 with comorbidity) ([facility]) 05/27/2022 ASCVD (arteriosclerotic cardiovascular disease) 08/29/2021 Overview [...] Monitoring 05/27/2023 05/27/2022 Hypertension Screening (#1) 12/18/2023 [id number] ( season) 2024 021, 12/26/2020 Imm-Influenza (#1) [...] EDT Severe obesity (BMI 35.0-35.9 with comorbidity) ([facility]) Hypercholesteremia Routine adult health maintenance COMPREHENSIVE METABOLIC PANEL Routine 05/27/2022 9:56 AM EDT Severe obesity (BMI 35.0-35.9 with comorbidity) ([facility]) Hypercholesteremia Routine adult health maintenance LIPID PANEL Routine 05/27/2022 9:56 AM EDT Severe obesity (BMI 35.0-35.9 with comorbidity) ([facility]) Hypercholesteremia Routine adult health maintenance [...] TO FT4 6.25(H) 0.40 - 4.50 mIU/L [facility] Blood Blood / Unknown 05/27/2022 9 :56 AM EDT 05/27/2022 9:57 AM EDT [facility] - BLOOD DRAW Final Result [facility] [address] [address], [facility] [address] [place] [address],[place] [address] * (ABNORMAL) LIPID PANEL (05/27/2022 9:56 AM EDT) CHOLESTEROL, TOTAL 165 <200 mg/dL [facility] HDL CHOLESTEROL 37(L) > OR = 40 mg/dL [facility] TRIGLYCERIDES 118 <150 mg/dL [facility] LDL-CHOLESTEROL 107(H) 99 mg/dL (calc) [facility] Comment: Reference range: <100 Desirable range <100 mg/dL for primary prevention; ?? <70 mg/dL for patients with CHD or diabetic patients with > or = 2 CHD risk factors. LDL-C is now calculated using the Reji calculation, which is a validated novel method providing better accuracy than the Friedewald equation in the estimation of LDL-C. Esau HATFIELD et al. JAYLA. 2013;310(19): 9148-7382 (http://education.THINK360.[employer]ers/faq/EHJ348) CHOL/HDLC RATIO 4.5 <5.0 (calc) [facility] NON-HDL CHOLESTEROL 128 <130 mg/dL (calc) [facility] Comment: For patients with diabetes plus 1 major ASCVD risk factor, treating to a non-HDL-C goal of <100 mg/dL (LDL-C of <70 mg/dL) is considered a therapeutic option. Blood Blood / Unknown 05/27/2022 9 :56 AM EDT 05/27/2022 9:57 AM EDT [facility] - BLOOD DRAW Final Result [facility] [address] [address], [facility] [address],[place] [address] * (ABNORMAL) COMPREHENSIVE METABOLIC PANEL (05/27/2022 9:56 AM EDT) GLUCOSE 100(H) 65 - 99 mg/dL [employer] [employer] [facility] Comment: ?Fasting reference interval For someone without known diabetes, a glucose value between 100 and 125 mg/dL is consistent with prediabetes and should be confirmed with a follow-up test. UREA NITROGEN (BUN) 15 7 - 25 mg/dL [facility] [place] [facility] CREATININE (blood) 0.67 0.60 - 1.29 mg/dL [facility] EGFR 121 > OR = 60 mL/min/[address] [employer] [facility] Comment: The eGFR is based on the CKD-EPI 2020 equation. To calculate the new eGFR from a previous Creatinine or Cystatin C result, go to https://www.kidney.org/professionals/ kdoqi/gfr%5Fcalculator BUN/CREATININE RATIO NOT APPLICABLE 6 - 22 [facility] SODIUM 138 135 - 146 mmol/L [facility] POTASSIUM 4.3 3.5 - 5.3 mmol/L [facility] CHLORIDE 103 98 - 110 mmol/L [facility] CARBON DIOXIDE 29 20 - 32 mmol/L [facility] [place] [employer] CALCIUM 9.3 8.6 - 10.3 mg/dL [facility] PROTEIN, TOTAL 8.0 6.1 - 8.1 g/dL [facility] ALBUMIN 4.2 3.6 - 5.1 g/dL [facility] GLOBULIN 3.8(H) 1.9 - 3.7 g/dL (calc) [facility] ALBUMIN/GLOBUL IN RATIO 1.1 1.0 - 2.5 (calc) [facility] BILIRUBIN, TOTAL 0.3 0.2 - 1.2 mg/dL [facility] ALKALINE PHOSPHATASE 82 36 - 130 U/L [facility] AST 16 10 - 40 U/L [facility] [facility] ALT 19 9 - 46 U/L [facility] Blood Blood / Unknown 05/27/2022 9 :56 AM EDT 05/27/2022 9:57 AM EDT us [facility] - BLOOD DRAW Edited Result - Final Performing Organization Address [facility]/ZIP Co de Phone Number [facility] [address] [address], [facility] [address],[facility] [place] [address] * HEPATITIS C AB W/RFLX HCV RNA, QT, RT PCR (08/29/2021 3:51 PM EST) HEPATITIS C ANTIBODY NON-REACT JIMMIE NON-REACT JIMMIE [facility] SIGNAL TO CUT-OFF 0.16 <1.00 [facility] Comment: HCV antibody was non-reactive. There is no laboratory evidence of HCV infection. In most cases, no further action is required. However, if recent HCV exposure is suspected, a test for HCV RNA (test code 68613) is suggested. For additional information please refer to http://education.LegiTime Technologies/faq/XDJ15l0 (This link is being provided for informational/ educational purposes only.) Blood Blood / Unknown 08/29/2021 3 :51 PM EST 08/29/2021 3:51 PM EST us [facility] - BLOOD DRAW Final Result Performing Organization Address [facility]/ZIP Co de Phone Number [facility] [address] [address], [employer] [facility] [address],[place] [address] * HIV 1/2 AG & AB W/RFLX (4TH GEN) (08/29/2021 3:51 PM EST) HIV AG/AB, 4TH GEN NON-REAC TIVE NON-REAC TIVE [employer] [facility] Comment: HIV-1 antigen and HIV-1/HIV-2 [...] ?? For additional information please refer to http://education.LegiTime Technologies/faq/ICD126 (This link is being provided for informational/ educational purposes only.) The performance of this assay has not been clinically validated in patients less than 2 years old. Blood Blood / Unknown 08/29/2021 3 :51 PM EST 08/29/2021 3:51 PM EST [facility] - BLOOD DRAW Final Result [facility] [address] [address], [place] [facility] [address] [address] from Last 3 Months or Most Recently Relevant to Health Maintenance Insurance [id number] Care Teams Regional Operations Director Relationship Specialty Start Date End Date Heber Benson PA [address] [place] [address] PCP - General Internal Medicine 09/09/17
[2025-02-10] MEDS: Aprepitant 32 MG/4.4 ML VIAL IVPUSH (06:58)
[2025-02-10] MEDS: Lactated Ringers 1,000 ML 999 ML IV (06:59)
[2025-02-10] MEDS: Lactated Ringers 1,000 ML 100 ML IVCONT (06:59)
--- NOTE | 2025-02-10 07:12 | MHC.SHP ---
Pre-Procedural Eval Section A - 24 Hr Update-Section A only Date of Service: 02/10/25 The patient is an INPATIENT: Yes The patient has been examined within 24 hours of the surgical procedure. The History & Physical has been completed within 30 days and I have reviewed it.: Yes Section B - Complete if H&P > 30 days Chief Complaint: Morbid Obesity Relevant Family History (Specify if Yes): No Relevant Social History: None Present Medications: None Medical History: No relevant PMH History of Previous Operations: No relevant previous surgery Allergies: Allergies Allergy/AdvReac Type Severity Reaction Status Date / Time Aspirin Allergy Severe Anaphylaxis Uncoded 02/10/25 06:24 Penicillin Allergy Severe Anaphylaxis Uncoded 02/10/25 06:24 Review of Systems Sugical H&P ROS: Negative: Constitution, Cardiovascular, Respiratory, Neurological, Psychiatric, Hem-Onc, Allergic/Immunologic, Gastrointestinal, Genitourinary, Musculoskeletal, Integumentary, Endocrine and Eyes/Ears/Nose/Throat Exam Surgical H&P Exam: Normal: HEENT, Normal: Heart, Normal: Lungs, Normal: Extremities, Normal: Abdomen, Normal: Skin and Normal: Neurological Plan Diagnosis/Plan: Unchanged I have reviewed the history and physical and performed a pertinent physical examination on my patient. No changes have occurred unless specified. Time Spent With Patient Time: Total time managing care of this patient today ____ minutes.
--- NOTE | 2025-02-10 07:26 | PC.NURSE ---
Patient last ate solid food on Friday, 02/07, small amount of rice. Per him, Dr. Tovar told me I could . Dr. Estrada at bedside in preop and made aware.
--- NOTE | 2025-02-10 07:40 | HO.ANESPROP2 ---
Documented by User: Rebekah Tan NP 02/09/25 10:05 HPI - Anesthesia Eval Consult details Narrative: 44yo M for Gastrectomy Sleeve,EGD,possibel Diaphragmatic Hernia,possible Ventral Hernia,possible Open BMI 48 Follows [facility] Cardiology for cardiomyopathy (likely r/t untreated GIBSON). Optimized for surgery. Echo updated 01/2025 Anesthesia Pre-Procedure Meds Is the patient on any of the following meds?: GLP1/DPP4 PMFSH Active Problems Active Problems: All Active Problems Constipation (Acute) Vitamin A deficiency (Acute) Vitamin D deficiency (Acute) Hypothyroidism (Acute) Morbid obesity with BMI of 50.0-59.9, adult (Acute) Cardiomyopathy (Acute) GERD (gastroesophageal reflux disease) (Acute) Sleep apnea with use of continuous positive airway pressure (CPAP) (Acute) Morbid obesity (Acute) Past Medical History Medical History (Updated 01/26/25 @ 12:33 by Bettie Serrano RN) Asthma Acute non-ST elevation myocardial infarction (NSTEMI) GERD (gastroesophageal reflux disease) Sleep apnea with use of continuous positive airway pressure (CPAP) Morbid obesity Family History Family History Father Coronary artery disease Diabetes Hypertension Mother Asthma Sister No problems noted. Sister No problems noted. Sister No problems noted. Sister No problems noted. Sister No problems noted. Brother No problems noted. Brother No problems noted. Son No problems noted. Daughter No problems noted. Surgical History Surgical History History of surgery History of kidney surgery Social History Social History (Updated 01/26/25 @ 12:39 by Bettie Serrano RN) Household Members: Spouse, Family and Children Housing: House Are you a primary critical care registered nurse to a significant other at home: No Do you presently have visiting nurse or other home services: No Alcohol intake: never Patient Tobacco Use Status: Former Tobacco user Tobacco use type: Cigarette Use of substances other than those prescribed or required for medical reasons: No Have you been hit, kicked, punched, or otherwise hurt by someone within the past year? If so, by whom?: No Are you DNR?: No Advance Directives: No Advance Directives Information Provided: Yes Advance Directives on File: No Poor oral hygiene: Yes (cracked teeth 2 upper, 1 lower) service: No Meds Allergies Allergy/AdvReac Type Severity Reaction Status Date / Time Aspirin Allergy Severe Anaphylaxis Uncoded 02/10/25 06:24 Penicillin Allergy Severe Anaphylaxis Uncoded 02/10/25 06:24 Home Medications ?Medication ?Instructions ?Recorded ?Confirmed ?Last Taken ?Type tirzepatide (weight loss) 5 mg/0.5 5 mg subcut .QMONDAY 01/26/25 02/10/25 01/31/25 History mL subcutaneous pen injector (Zepbound) ondansetron 4 mg disintegrating 4 mg PO Q12H nausea and vomiting 02/10/25 02/10/25 Unknown History tablet Exam Height,Weight and Vital Signs: Height 5 ft 9 in Weight 147.418 kg Pertinent Lab Results Pertinent Lab Results: Laboratory Tests 02/02/25 02/02/25 09:45 09:47 WBC 7.6 RBC 5.92 H Hgb 16.5 Hct 50.0 MCV 84.5 MCH 27.9 MCHC 33.0 RDW 14.4 Plt Count 215 MPV 10.9 Immature Gran % (Auto) 0.4 Neut % (Auto) 65.4 Lymph % (Auto) 23.7 [place] % (Auto) 9.1 Eos % (Auto) 1.1 Baso % (Auto) 0.3 Lymph # (Auto) 1.8 [place] # (Auto) 0.7 Eos # (Auto) 0.1 Baso # (Auto) 0.0 Abs Immat Gran (auto) 0.03 Absolute Neuts (auto) 5.0 Absolute Nucleated RBC 0.000 Nucleated RBC % (auto) 0.0 PT 14.2 H INR 1.2 H APTT 33.9 Sodium 139 Potassium 3.9 Chloride 104 Carbon Dioxide 27 Anion Gap 12 BUN 16 Creatinine 0.77 Estim Creat Clear Calc 179.2 Estimated GFR > 60 Random Glucose 88 Estimat Average Glucose 117 Hemoglobin A1c % 5.7 Insulin Level 13 Calcium 9.9 D Total Bilirubin 0.7 AST 35 ALT 36 Alkaline Phosphatase 84 C-Reactive Protein 1.14 H Total Protein 8.3 H Albumin 4.4 Triglycerides 83 Cholesterol 147 LDL Cholesterol, Calc 103 H HDL Cholesterol 28 L TSH 3.93 Blood Type B Positive Antibody Screen NEGATIVE Narrative Narrative: EKG 01/2025 EKG Details: EKG shows normal sinus rhythm with low-voltage QRS ECHO 01/2025 Conclusions: - 1. Low normal LV ejection fraction of 50-55% with grade 1 diastolic dysfunction 2. Normal cardiac valvular Dopplers 3. Upper limits of normal ascending aortic size 4. No pericardial effusion him Assessment and Plan Assessment Anesthesia Assessment: Chart Reviewed Documented by User: Landy Jerome, DO 02/10/25 07:43 HPI - Anesthesia Eval Anesthesia Pre-Procedure Meds Is the patient on any of the following meds?: GLP1/DPP4 [facility] Past Medical History Medical History (Updated 01/26/25 @ 12:33 by Bettie Serrano RN) Asthma Acute non-ST elevation myocardial infarction (NSTEMI) GERD (gastroesophageal reflux disease) Sleep apnea with use of continuous positive airway pressure (CPAP) Morbid obesity Family History Family History Father Coronary artery disease Diabetes Hypertension Mother Asthma Sister No problems noted. Sister No problems noted. Sister No problems noted. Sister No problems noted. Sister No problems noted. Brother No problems noted. Brother No problems noted. Son No problems noted. Daughter No problems noted. Family history of problems with anesthesia: No Surgical History Surgical History History of surgery History of kidney surgery History of Problems with Anesthesia: No Social History Social History (Updated 01/26/25 @ 12:39 by Bettie Serrano RN) Household Members: Spouse, Family and Children Housing: House Are you a primary critical care registered nurse to a significant other at home: No Do you presently have visiting nurse or other home services: No Alcohol intake: never Patient Tobacco Use Status: Former Tobacco user Tobacco use type: Cigarette Use of substances other than those prescribed or required for medical reasons: No Have you been hit, kicked, punched, or otherwise hurt by someone within the past year? If so, by whom?: No Are you DNR?: No Advance Directives: No Advance Directives Information Provided: Yes Advance Directives on File: No Poor oral hygiene: Yes (cracked teeth 2 upper, 1 lower) service: No Meds Allergies Allergy/AdvReac Type Severity Reaction Status Date / Time Aspirin Allergy Severe Anaphylaxis Uncoded 02/10/25 06:24 Penicillin Allergy Severe Anaphylaxis Uncoded 02/10/25 06:24 Home Medications ?Medication ?Instructions ?Recorded ?Confirmed ?Last Taken ?Type tirzepatide (weight loss) 5 mg/0.5 5 mg subcut .QMONDAY 01/26/25 02/10/25 01/31/25 History mL subcutaneous pen injector (Zepbound) ondansetron 4 mg disintegrating 4 mg PO Q12H nausea and vomiting 02/10/25 02/10/25 Unknown History tablet Exam Exam Date and Time: 02/10/25 0740 Height,Weight and Vital Signs: Height 5 ft 9 in Weight 147.418 kg Vital Signs Temperature 97.8 F 02/10/25 06:36 Pulse Rate 98 02/10/25 06:36 Respiratory Rate 16 02/10/25 06:36 Blood Pressure 135/86 02/10/25 06:36 Pulse Oximetry 96 02/10/25 06:36 Oxygen Delivery Method Room Air 02/10/25 06:36 Temperature 97.8 F 02/10/25 06:36 Pulse Rate 98 02/10/25 06:36 Respiratory Rate 16 02/10/25 06:36 Blood Pressure 135/86 02/10/25 06:36 Pulse Oximetry 96 02/10/25 06:36 Oxygen Delivery Method Room Air 02/10/25 06:36 Airway Mallampati Class: II TM Dist: <=3cm Neck ROM: Full Loose/Missing/Broken Teeth: Yes (multiple broken teeth - 2 on top jaw and 1 on bottom jaw) Heart: S1S2 Lungs: CTAB Assessment and Plan Assessment Anesthesia Assessment: Anesthesia Plan Discussed and Chart Reviewed Final Anesthetic Review Family History of Problems with Anesthesia: No History of Problems with Anesthesia: No NPO: Yes ASA Class: III Final Preanesthetic Review: No Changes in Pt Med Stat, Meds/Allgs Chart Reviewed, Consent Obtained/Reviewed and Anes Risks/Benef Reviewed Patient Risk: Intermediate Procedure Risk: Intermediate Anesthetic Plan Anesthetic Plan: GA and Agree w/ Assess. and Plan Disposition: Standard PACU
--- NOTE | 2025-02-10 08:32 | PM.OP ---
Brief Operative Note Date of Service: 02/10/25 Pre-op diagnosis: Morbid obesity with comorbidities (see below) Post-op diagnosis: same Procedure: NITIAL PATIENT BMI ON PRESENTATION AT OUR OFFICE: 53.2 kg/m2 LAST BMI BEFORE SURGERY: 46 kg/m2 COMORBIDITIES: Hypothyroidism, diabetes, sleep apnea on CPAP, hypertension, non-ST MT, DJD, liver steatosis, cholelithiasis ?The patient presented to the Weight Management Program with significant obesity that was negatively impacting the patient's comorbidities as listed above.? The program is a phased program with a special focus on preoperative medical weight management to promote substantial weight loss and prepare the patients for the second phase of the program: bariatric surgery. The patient participated in an intensive weekly lifestyle ?intervention and exercise program during which the patient ?has lost between the initial office visit and the last preoperative visit 40.1 lbs, or 11.13% of initial actual body weight. It was deemed appropriate for the patient to now have bariatric surgery. In light of the current Covid-19 pandemic and the well documented strong association of obesity and increased risk of worse outcomes if infected with Covid-19 (REFERENCES:https://pubmed.ncbi.nlm.nih.gov/19576621/,?https://pubmed.ncbi.nlm.nih.gov/93970403/), any delay in undergoing bariatric surgery may lead to the patient's worsening health condition and increased?risk of more severe Covid-19 disease if infected. In addition a recent?study from [facility] published in JAYLA Surgery on 09/10/2021 (file:///C:/Users/[email or web address]/Downloads/[facility]_aminian_2020_[email or web address].pdf) found that, among patients with obesity, substantial weight loss achieved with surgery was associated with improved outcomes of COVID-19 infection. The findings suggest that obesity can be a modifiable risk factor for the severity of COVID-19 infection. In addition, the patient met the BMI-criteria for bariatric surgery based on the BMI on initial presentation. The patient should not be penalized for achieving such weight loss because ?it is not sustainable long-term without surgical intervention and it was achieved in preparation for bariatric surgery ?under my direction and based on my published research (file:///C:/[email or web address]/[email or web address]%20ACS%20(3).pdf and?https://www.soard.org/article/P8830-9412(44)80898-X/pdf) ?that a 10% preoperative weight loss improves long-term weight loss after surgery and reduces perioperative complications.? Insurance carriers such as [facility] have endorsed my recommendations ?and have included in their policies criteria to include a 10% preoperative weight loss requirement. PROCEDURE: Esophago-gastroscopy INDICATIONS: This is a 44 year-old male who was electively scheduled for laparoscopic, possibly open sleeve gastrectomy. The risks and complications of the procedure were discussed with the patient in advance, particularly the possibility of ; pulmonary embolism; staple line leak; bleeding; GERD; cardiac, pulmonary, or renal complications; as well as long-term problems such as insufficient weight loss, vitamin deficiency, strictures, or ulcers. The patient understood all the risks, and was in agreement to proceed with surgery. DESCRIPTION OF PROCEDURE: After informed consent was obtained from the patient, the patient was given preoperative antibiotics, and was transferred to the operating room. After successful induction of general anesthesia, pneumatic compression devices were placed on both lower extremities. An upper endoscopy was performed next. The oropharynx and esophagus appeared to be within normal limits.The stomach was entered. There was a substantial amount of food in the stomach which would make the surgery is unsafe. The patient was supposed to be on a liquid diet for 2 weeks. Then after all fluid and air were suctioned and the stomach was fully decompressed, the scope was withdrawn and secured in the mid esophagus. I decided to abort the sleeve gastrectomy due to the risk of aspiration and other postoperative complications as a result of the food in the stomach. Surgeon: Sonido Tovar MD Anesthesia: GETA Was an Commercial Management Accountant used for this Procedure?: No Estimated blood loss (mL): 0 IV fluids (mL): 1,000 Urine output (mL): 0 (No Conroy to record output) Pathology: none sent Condition: stable Disposition: PACU
--- NOTE | 2025-02-10 10:12 | PHA.MEDREC ---
Pharmacy Consult ? Medication Reconciliation Pharmacy has reviewed the medication reconciliation done by nursing. There was no pharmacy claims for metoprolol ER 50 mg and valsartan 80 mg but when called [phone], staff was able to confirm that last mushroom picker for both meds was on 02/01/25.
--- NOTE | 2025-04-26 16:04 | PM.DS ---
DS: Providers Provider Date of Service: 02/10/25 Date of admission: 02/10/25 06:05 Date of discharge: 02/10/25 Primary care physician: Unknown Physician DS: Summary Hospital Course Hospital Course: ADMITTING DIAGNOSIS: morbid obesity,?hypothyroidism, cardiomyopathy, GERD, GIBSON on CPAP DISCHARGE DIAGNOSIS: same, s/p endoscopy PAST SURGICAL HISTORY:?kidney surgery PROCEDURE: upper endoscopy DISCHARGE SUMMARY: History of Present Illness: The patient is a? 45 year-old man with a BMI of?46.3 kg/m2 and associated co-morbidities as described above. The patient had extensive work-up, lost?47 lbs preoperatively and was electively scheduled for laparoscopic, possible open sleeve gastrectomy and gastropexy. Risks and complications of the surgery were discussed with the patient in advance, particularly the possibility of , pulmonary embolism, anastomotic leak, bleeding, bowel injury, GERD, cardiac, renal or pulmonary complications. The patient understood all the risks and was in agreement with the surgical plan. Hospital Course: The patient underwent general anesthesia and upper endoscopy was performed prior to the planned sleeve gastrectomy. However, endoscopy revealed a substantial amount of food in the stomach which would have made the surgery unsafe. Decision was made to abort the sleeve gastrectomy to avoid the risk of aspiration and postoperative complications. Patient was awakened from anesthesia and transferred to the PACU. He was able to be discharged to home from PACU after discussing the reason for aborting the surgery. Time Attestation Discharge Coordination Time (in mins): 30 Quality: Safe Use of Opioids Does Pt have an Active Cancer Diagnosis on the Problem List?: No Quality: Stroke Does the patient have a stroke diagnosis?: No Physical Exam Vital Signs: Vital Signs: Last Vital Signs Temp 98.2 F 02/10/25 09:15 Pulse 91 02/10/25 09:15 Resp 20 02/10/25 09:15 BP 118/79 02/10/25 09:15 Pulse Ox 95 02/10/25 09:15 O2 Del Method Room Air 02/10/25 09:15 BMI result Body Mass Index 46.3 DS: Data Data Completed and Pending Completed studies during hospitalization [Text1]: Procedures Inspection of Upper Intestinal Tract, Via Natural or Artificial Opening Endoscopic (02/10/25) Discharge Plan Discharge Anticipated Discharge Date/Time: 02/10/25 08:38 Patient Disposition: Home, Self-Care Discharge Diagnosis: Retained food in the stomach Referrals: Physician,Manjinder J [Primary Care Provider] - 1 Week Discharge Medications: Continued vitamin A palmitate 3,000 mcg (10,000 unit) capsule 10,000 unit PO DAILY Qty: 60 0RF thiamine HCl (vitamin B1) 100 mg tablet 100 mg PO DAILY 90 Days Qty: 90 0RF docusate sodium [Colace] 100 mg capsule 100 mg PO DAILY Qty: 90 0RF levothyroxine 25 mcg tablet 25 mcg PO DAILY Qty: 30 2RF metoprolol succinate [Toprol XL] 50 mg tablet extended release 24 hr 50 mg PO DAILY Qty: 30 5RF valsartan 80 mg tablet 80 mg PO DAILY Qty: 30 5RF Discontinued ondansetron 4 mg tablet,disintegrating 4 mg PO Q12H Rx Instructions: Only take one every 12 hours as needed if you have nausea sucralfate 100 mg/mL suspension 10 ml PO BID Qty: 600 2RF No Action cholecalciferol (vitamin D3) 125 mcg (5,000 unit) capsule 125 mcg PO DAILY Qty: 90 0RF Zepbound 5 mg/0.5 mL pen injector 5 mg subcut .QMONDAY Qty: 2 5RF Discharge Orders: Discharge Order (Routine); Ordered 02/10/25 Ordered By: Sonido Tovar Activity on Discharge: As tolerated Stand Alone Forms: Patient Portal Discharge page Print Language: Martiniquais Care Plan Goals: Will discuss with patient next steps when he wakes up at a later day Health Concerns: Inability to follow written instructions Plan of Treatment: Will discuss with patient next steps when he wakes up at a later day Assessment: Patient is in a good condition to be discharged Discharge Date/Time: 02/10/25 09:39
== END 2025-02-10 09:39 | disposition home or self-care (01) | DRG 421 ==
PROVIDERS: Admitting Provider Surgery; Visit Provider Surgery
PROC: 0DJ08ZZ Inspection of Upper Intestinal Tract, Via Natural or Artificial Opening Endoscopic (ICD-10-PCS; CPT 43845; principal; 2025-02-10 07:30)
DX: E66.01 Morbid (severe) obesity due to excess calories (principal); K80.20 Calculus of gallbladder without cholecystitis without obstruction; K76.0 Fatty (change of) liver, not elsewhere classified; E03.9 Hypothyroidism, unspecified; E11.9 Type 2 diabetes mellitus without complications; G47.33 Obstructive sleep apnea (adult) (pediatric); I10 Essential (primary) hypertension; I25.2 Old myocardial infarction; Z87.891 Personal history of nicotine dependence; Z79.899 Other long term (current) drug therapy
CPT/HCPCS: 36415; 80053; 80061; 83036; 83525; 84443; 85025; 85610; 85730; 86140; 86850; 86900; 86901; A4649; C9145; J0131; J1100; J1956; J2003; J2250; J2704; J2795; J3010

== ENCOUNTER → 2025-02-10 06:05 | Outpatient (BNV) | payer MEDICAID, SELFPAY | PROVIDERS: Admitting Provider Surgery; Visit Provider Surgery | DX: E66.01 Morbid (severe) obesity due to excess calories (principal); Z68.42 Body mass index [BMI] 45.0-49.9, adult | CPT/HCPCS: 43235 ==

== ENCOUNTER 2025-02-18 10:30 | Outpatient (AMB) | payer OTHER, SELFPAY ==
--- NOTE | 2025-02-18 10:30 | MHC.WMTHER ---
Intake Intake Visit Reasons: TV BH F/U Allergies Aspirin Allergy (Severe, Uncoded 02/10/25 06:24) Anaphylaxis Penicillin Allergy (Severe, Uncoded 02/10/25 06:24) Anaphylaxis [facility] Medical History (Updated 01/26/25 @ 12:33 by Bettie Serrano RN) Asthma Acute non-ST elevation myocardial infarction (NSTEMI) GERD (gastroesophageal reflux disease) Sleep apnea with use of continuous positive airway pressure (CPAP) Morbid obesity Surgical History History of surgery History of kidney surgery Family History Father Coronary artery disease Diabetes Hypertension Mother Asthma Sister No problems noted. Sister No problems noted. Sister No problems noted. Sister No problems noted. Sister No problems noted. Brother No problems noted. Brother No problems noted. Son No problems noted. Daughter No problems noted. Social History (Updated 01/26/25 @ 12:39 by Bettie Serrano RN) Household Members: Spouse, Family and Children Housing: House Are you a primary pet care assistant to a significant other at home: No Do you presently have visiting nurse or other home services: No Alcohol intake: never Patient Tobacco Use Status: Former Tobacco user Tobacco use type: Cigarette service: No Behavioral Health Assessment Weight Management Therapy Therapy Notes Details Subjective:? The patient reports feeling down following an attempt to undergo surgery. He mentioned that the doctor had given him permission to eat on the Friday before the surgery, and he returned to a liquid diet on Friday. When asked to provide the text messages for verification, the patient stated that he had deleted them and no longer had access to them. He expressed that he does not wish to proceed with the surgery and is interested in pursuing medical weight loss options. His recent weight was recorded as 312 lbs on 02/10/25, although he is uncertain if his current weight is 310 or 312 lbs. Objective:?The patient presents for a behavioral health follow-up visit. Reflective listening was employed, and problem-solving strategies were discussed. Feedback was provided regarding the importance of following instructions and maintaining commitment for long-term, successful weight loss. Assessment/Response: Mental status: reported feeling down but no depressed. Good functioning, no other mood concerns reported. Risk reported/identified: None Assessment & Plan Assessment & Plan (1) Adjustment disorder: Code(s): F43.20 - Adjustment disorder, unspecified Plan No further visits with this provider are scheduled. The provider will inform the team about the patient's interest in medical weight loss (MWL) to set up an appointment with the physician wellness assistant (PA). The patient wishes to see Lily Helm Telehealth Telehealth Telehealth Platform: [facility] Location of provider rendering services: practice address Location of patient: other ([place], [place].) Patient Identification confirmed using: Name, : Yes Telehealth method: voice only Patient verbally consented to treatment: Yes Patient verbally consented to billing insurance company: Yes Patient informed of any privacy concerns related to visit: Yes Minutes spent on Phone/Video with Pt.: 25 Coding Level of Care Code Established Pt Tele Psytx 30 mins (46725) Patient Type Established Diagnoses Adjustment disorder F43.20 Time Spent (min) 25
--- OUTSIDE RECORDS SUMMARY | 2025-02-18 11:30 | XMS_ITS | Clinical Summary ---
Author Organization [facility] Address [address] [place] [address] Care Team Providers Care Hospital Social Worker Name Role Phone Heber Benson Primary Care Provider [phone] Source Comments PLEASE NOTE, if this patient [...] Date Severe obesity (BMI 35.0-35.9 with comorbidity) ([facility]) 05/27/2022 ASCVD (arteriosclerotic cardiovascular disease) 08/29/2021 [...] Monitoring 05/27/2023 05/27/2022 Hypertension Screening (#1) 12/18/2023 [id number] ( season) 2024 021, 12/26/2020 Alcohol and Drug Screen 09/15/2024 12/19/19 23, 12/18/2022, 05/27/2022, Additional history exists Depression Annual Screen 09/15/2024 12/18/2022, 08/16 Imm-Influenza (Season Ended) 2025 09/22/2017 Diabetes Screening 05/27/2025 05/27/2022, 1 10/30/2020, 09/09/2017 Imm-DTaP/Tdap/Td (2 - Td or Tdap) 09/22/2027 018 HIV Screening Completed 08/29/2021 Hepatitis C Screening Completed 08/29/2021 Procedures Procedure Name Priority Date/Time Associated Diagnosis Comments TSH W/RFLX FREE T4 Routine 05/27/2022 9: 56 AM EDT Severe obesity (BMI 35.0-35.9 with comorbidity) ([facility]) Hypercholesteremia Routine adult health maintenance COMPREHENSIVE METABOLIC PANEL Routine 05/27/2022 9:56 AM EDT Severe obesity (BMI 35.0-35.9 with comorbidity) ([facility]) Hypercholesteremia Routine adult health maintenance LIPID PANEL Routine 05/27/2022 9:56 AM EDT Severe obesity (BMI 35.0-35.9 with comorbidity) ([facility]) Hypercholesteremia Routine adult health maintenance [...] TO FT4 6.25(H) 0.40 - 4.50 mIU/L [facility] Blood Blood / Unknown 05/27/2022 9 :56 AM EDT 05/27/2022 9:57 AM EDT [facility] - BLOOD DRAW Final Result [facility] [address] [address], [facility] [address] [place] [address],[place] [address] * (ABNORMAL) LIPID PANEL (05/27/2022 9:56 AM EDT) CHOLESTEROL, TOTAL 165 <200 mg/dL [facility] HDL CHOLESTEROL 37(L) > OR = 40 mg/dL [facility] TRIGLYCERIDES 118 <150 mg/dL [facility] LDL-CHOLESTEROL 107(H) 99 mg/dL (calc) [facility] Comment: Reference range: <100 Desirable range <100 mg/dL for primary prevention; ?? <70 mg/dL for patients with CHD or diabetic patients with > or = 2 CHD risk factors. LDL-C is now calculated using the Reji calculation, which is a validated novel method providing better accuracy than the Friedewald equation in the estimation of LDL-C. Esau HATFIELD et al. JAYLA. 2013;310(19): 8241-6822 (http://education.PriceArea.Snootlab/faq/VNI543) CHOL/HDLC RATIO 4.5 <5.0 (calc) [facility] NON-HDL CHOLESTEROL 128 <130 mg/dL (calc) [facility] Comment: For patients with diabetes plus 1 major ASCVD risk factor, treating to a non-HDL-C goal of <100 mg/dL (LDL-C of <70 mg/dL) is considered a therapeutic option. Blood Blood / Unknown 05/27/2022 9 :56 AM EDT 05/27/2022 9:57 AM EDT [facility] - BLOOD DRAW Final Result [facility] [address] [address], [facility] [address],[place] [address] * (ABNORMAL) COMPREHENSIVE METABOLIC PANEL (05/27/2022 9:56 AM EDT) GLUCOSE 100(H) 65 - 99 mg/dL [facility] Comment: ?Fasting reference interval For someone without known diabetes, a glucose value between 100 and 125 mg/dL is consistent with prediabetes and should be confirmed with a follow-up test. UREA NITROGEN (BUN) 15 7 - 25 mg/dL [facility] [facility] CREATININE (blood) 0.67 0.60 - 1.29 mg/dL [facility] EGFR 121 > OR = 60 mL/min/1 .73m2 [facility] Comment: The eGFR is based on the CKD-EPI 2020 equation. To calculate the new eGFR from a previous Creatinine or Cystatin C result, go to https://www.kidney.org/professionals/ kdoqi/gfr%5Fcalculator BUN/CREATININE RATIO NOT APPLICABLE 6 - 22 [facility] SODIUM 138 135 - 146 mmol/L [facility] POTASSIUM 4.3 3.5 - 5.3 mmol/L [facility] CHLORIDE 103 98 - 110 mmol/L [facility] CARBON DIOXIDE 29 20 - 32 mmol/L [facility] [facility] CALCIUM 9.3 8.6 - 10.3 mg/dL [facility] PROTEIN, TOTAL 8.0 6.1 - 8.1 g/dL [facility] ALBUMIN 4.2 3.6 - 5.1 g/dL [facility] GLOBULIN 3.8(H) 1.9 - 3.7 g/dL (calc) [facility] ALBUMIN/GLOBUL IN RATIO 1.1 1.0 - 2.5 (calc) [facility] BILIRUBIN, TOTAL 0.3 0.2 - 1.2 mg/dL [facility] ALKALINE PHOSPHATASE 82 36 - 130 U/L [facility] AST 16 10 - 40 U/L [facility] ALT 19 9 - 46 U/L [facility] Blood Blood / Unknown 05/27/2022 9 :56 AM EDT 05/27/2022 9:57 AM EDT us [facility] - BLOOD DRAW Edited Result - Final Performing Organization Address [facility]/ZIP Co de Phone Number [facility] [address] [address], [facility] [address],[facility] [place] [address] * HEPATITIS C AB W/RFLX HCV RNA, QT, RT PCR (08/29/2021 3:51 PM EST) HEPATITIS C ANTIBODY NON-REACT JIMMIE NON-REACT JIMMIE [facility] SIGNAL TO CUT-OFF 0.16 <1.00 [facility] Comment: HCV antibody was non-reactive. There is no laboratory evidence of HCV infection. In most cases, no further action is required. However, if recent HCV exposure is suspected, a test for HCV RNA (test code 66921) is suggested. For additional information please refer to http://education.Spikes [employer] Inc./faq/LTB36j4 (This link is being provided for informational/ educational purposes only.) Blood Blood / Unknown 08/29/2021 3 :51 PM EST 08/29/2021 3:51 PM EST us [facility] - BLOOD DRAW Final Result Performing Organization Address [facility]/ZIP Co de Phone Number [facility] [address] [address], [employer] [facility] [address],[place] [address] * HIV 1/2 AG & AB W/RFLX (4TH GEN) (08/29/2021 3:51 PM EST) HIV AG/AB, 4TH GEN NON-REAC TIVE NON-REAC TIVE [facility] Comment: HIV-1 antigen and HIV-1/HIV-2 [...] ?? For additional information please refer to http://education.Sp[employer] Inc./faq/LMJ042 (This link is being provided for informational/ educational purposes only.) The performance of this assay has not been clinically validated in patients less than 2 years old. Blood Blood / Unknown 08/29/2021 3 :51 PM EST 08/29/2021 3:51 PM EST [facility] - BLOOD DRAW Final Result [facility] [address] [address], [employer] [facility] [address],[place] [address] from Last 3 Months or Most Recently Relevant to Health Maintenance Insurance [employer] Care Teams Hospital Social Worker Relationship Specialty Start Date End Date Heber Benson PA [address] [place] [address] PCP - General Internal Medicine 09/09/17
== END 2025-02-18 11:03 | disposition home or self-care (01) ==
LOC: HO.HBST 10:41
PROVIDERS: PCP Family Medicine; Visit Provider Counselor Mental Health
DX: F43.20 Adjustment disorder, unspecified (principal)
CPT/HCPCS: 90832

== ENCOUNTER 2025-03-02 08:44 | Outpatient (REF) | payer OTHER, SELFPAY ==
--- OUTSIDE RECORDS SUMMARY | 2025-03-02 09:11 | XMS_ITS | Clinical Summary ---
Author Organization [facility] Address [address] [place] [address] Care Team Providers Care Research Executive Name Role Phone Heber Benson Primary Care Provider [phone] Source Comments PLEASE NOTE, if this patient [...] obesity (BMI 35.0-35.9 with comorbidity) ([facility]) 05/27/2022 ASCVD (arteriosclerotic cardiovascular disease) 08/29/2021 [...] 96 12/18/2022 4:34 PM EDT Temperature 36.7 C (98 F) 12/18/2022 4:34 PM EDT Respiratory Rate 20 [...] Monitoring 05/27/2023 05/27/2022 Hypertension Screening (#1) 12/18/2023 [id number] ( season) 2024 021, 12/26/2020 Alcohol and [...] EDT Severe obesity (BMI 35.0-35.9 with comorbidity) ([facility] Hypercholesteremia Routine adult health maintenance COMPREHENSIVE METABOLIC PANEL Routine 05/27/2022 9:56 AM EDT Severe obesity (BMI 35.0-35.9 with comorbidity) ([facility]) Hypercholesteremia Routine adult health maintenance LIPID PANEL Routine 05/27/2022 9:56 AM EDT Severe obesity (BMI 35.0-35.9 with comorbidity) ([facility]) Hypercholesteremia Routine adult health maintenance HIV 1/2 [...] TO FT4 6.25(H) 0.40 - 4.50 mIU/L [facility] Blood Blood / Unknown 05/27/2022 9 :56 AM EDT 05/27/2022 9:57 AM EDT [facility] - BLOOD DRAW Final Result [facility] [address] [address], [facility] [address] [place] [address],[place] [address] * (ABNORMAL) LIPID PANEL (05/27/2022 9:56 AM EDT) CHOLESTEROL, TOTAL 165 <200 mg/dL [facility] HDL CHOLESTEROL 37(L) > OR = 40 mg/dL [facility] TRIGLYCERIDES 118 <150 mg/dL [facility] LDL-CHOLESTEROL 107(H) 99 mg/dL (calc) [facility] Comment: Reference range: <100 Desirable range <100 mg/dL for primary prevention; <70 mg/dL for patients with CHD or diabetic patients with > or = 2 CHD risk factors. LDL-C is now calculated using the Reji calculation, which is a validated novel method providing better accuracy than the Friedewald equation in the estimation of LDL-C. Esau HATFIELD et al. JAYLA. 2013;310(19): 1976-7907 (http://education.Pongr/faq/LBT695) CHOL/HDLC RATIO 4.5 <5.0 (calc) [facility] NON-HDL CHOLESTEROL 128 <130 mg/dL (calc) [facility] Comment: For patients with diabetes plus 1 major ASCVD risk factor, treating to a non-HDL-C goal of <100 mg/dL (LDL-C of <70 mg/dL) is considered a therapeutic option. Blood Blood / Unknown 05/27/2022 9 :56 AM EDT 05/27/2022 9:57 AM EDT [facility] - BLOOD DRAW Final Result [employer] [employer] [facility] [address] [address], [employer] [facility] [address],[place] [address] * (ABNORMAL) COMPREHENSIVE METABOLIC PANEL (05/27/2022 9:56 AM EDT) GLUCOSE 100(H) 65 - 99 mg/dL [employer] [facility] Comment: Fasting reference interval For someone without known diabetes, a glucose value between 100 and 125 mg/dL is consistent with prediabetes and should be confirmed with a follow-up test. UREA NITROGEN (BUN) 15 7 - 25 mg/dL [facility] CREATININE (blood) 0.67 0.60 - 1.29 mg/dL [facility] EGFR 121 > OR = 60 mL/min/1 .73m2 [facility] Comment: The eGFR is based on the CKD-EPI 2020 equation. To calculate the new eGFR from a previous Creatinine or Cystatin C result, go to https://www.kidney.org/professionals/ kdoqi/gfr%5Fcalculator BUN/CREATININE RATIO NOT APPLICABLE 6 - 22 [facility] SODIUM 138 135 - 146 mmol/L [facility] POTASSIUM 4.3 3.5 - 5.3 mmol/L [facility] CHLORIDE 103 98 - 110 mmol/L [facility] CARBON DIOXIDE 29 20 - 32 mmol/L [facility] CALCIUM 9.3 8.6 - 10.3 mg/dL [facility] PROTEIN, TOTAL 8.0 6.1 - 8.1 g/dL [facility] ALBUMIN 4.2 3.6 - 5.1 g/dL [facility] GLOBULIN 3.8(H) 1.9 - 3.7 g/dL (calc) [employer] [facility] ALBUMIN/GLOBUL IN RATIO 1.1 1.0 - 2.5 (calc) [employer] [facility] BILIRUBIN, TOTAL 0.3 0.2 - 1.2 mg/dL [employer] [facility] ALKALINE PHOSPHATASE 82 36 - 130 U/L [employer] [facility] AST 16 10 - 40 U/L [employer] [facility] ALT 19 9 - 46 U/L [employer] [facility] Blood Blood / Unknown 05/27/2022 9 :56 AM EDT 05/27/2022 9:57 AM EDT us [facility] - BLOOD DRAW Edited Result - Final Performing Organization Address [facility] Co de Phone Number [employer] [address] [address], [employer] [address] [address] * HEPATITIS C AB W/RFLX HCV RNA, QT, RT PCR (08/29/2021 3:51 PM EST) HEPATITIS C ANTIBODY NON-REACT JIMMIE NON-REACT JIMMIE [employer] [facility] SIGNAL TO CUT-OFF 0.16 <1.[address] [employer] [facility] Comment: HCV antibody was non-reactive. There is no laboratory evidence of HCV infection. In most cases, no further action is required. However, if recent HCV exposure is suspected, a test for HCV RNA (test code 30046) is suggested. For additional information please refer to http://education.[employer]/faq/TYS72s3 (This link is being provided for informational/ educational purposes only.) Blood Blood / Unknown 08/29/2021 3 :51 PM EST 08/29/2021 3:51 PM EST us [facility] - BLOOD DRAW Final Result Performing Organization Address [facility]/ZIP Co de Phone Number [employer] [facility] [address] [address], [employer] [address] [address] * HIV 1/2 AG & AB W/RFLX (4TH GEN) (08/29/2021 3:51 PM EST) HIV AG/AB, 4TH GEN NON-REAC TIVE NON-REAC TIVE [employer] [facility] Comment: HIV-1 antigen and HIV-1/HIV-2 antibodies were not detected. There is no laboratory evidence of HIV infection. PLEASE NOTE: This information has been disclosed to you from records whose confidentiality may be protected by state law. If your state requires such protection, then the state law prohibits you from making any further disclosure of the information without the specific written consent of the person to whom it pertains, or as otherwise permitted by law. A general authorization for the release of medical or other information is NOT sufficient for this purpose. For additional information please refer to http://education.[employer]/faq/LFM572 (This link is being provided for informational/ educational purposes only.) The performance of this assay has not been clinically validated in patients less than 2 years old. Blood Blood / Unknown 08/29/2021 3 :51 PM EST 08/29/2021 3:51 PM EST [facility] - BLOOD DRAW Final Result [employer] [facility] [address] [address], [employer] [facility] [address],[place] [address] from Last 3 Months or Most Recently Relevant to Health Maintenance Insurance [employer] Care Teams Research Executive Relationship Specialty Start Date End Date Heber Benson PA [address] [place] [address] PCP - General Internal Medicine 09/09/17
[2025-03-02 10:48] LABS: Hematocrit 49.2 % (42.0-52.0); Hemoglobin 15.9 g/dl (14.0-18.0); Mean Corpuscular HGB Conc 32.3 g/dl (31.0-36.0); Mean Corpuscular Hemoglobin 27.9 pg (27.0-33.0); Mean Corpuscular Volume 86.5 fL (80.0-98.0); Mean Platelet Volume 10.9 fL (9.4-12.4); Platelet Count 206 X10*3/uL (160-400); Red Blood Count 5.69 X10*6/uL (4.60-5.80); Red Cell Distribution Width 14.7 % (11.0-16.0)
[2025-03-02 10:54] LABS: Estimated Average Glucose 111 mg/dL; Hemoglobin A1C 152.6108 umol/L; Hemoglobin A1c % 5.5 % (<6.0)
[2025-03-02 11:34] LABS: Alanine Aminotransferase 26 U/L (0-40); Albumin Level 4.3 g/dL (3.5-5.0); Alkaline Phosphatase 82 U/L (39-117); Anion Gap 12 (12-20); Aspartate Amino Transferase 23 U/L (5-37); Bilirubin Direct 0.2 mg/dL (0.0-0.5); Bilirubin Total 0.6 mg/dL (0.0-1.0); Blood Urea Nitrogen 8 mg/dL (9-16); Calcium 9.4 mg/dL (8.4-10.2); Carbon Dioxide 24 mmol/L (22-29); Chloride 108 mmol/L (96-108); Cholesterol 153 mg/dL (<200); Estimated Glomerular Filt Rate > 60; Glucose Random 104 mg/dL (60-115); HDL Cholesterol 29 mg/dL (>40); LDL Cholesterol Calculated 103 mg/dL (<100); Potassium 3.6 mmol/L (3.3-5.1); Sodium 140 mmol/L (135-145); Total Protein 7.9 g/dL (6.5-8.0); Triglycerides 108 mg/dL (<150)
[2025-03-02 11:44] LABS: Free T4 (Free Thyroxine) 0.99 ng/dL (0.71-1.85); Thyroid Stimulating Hormone 4.47 uIU/mL (0.32-4.0); Vitamin D 25-OH Total 34.4 ng/mL (>30)
[2025-03-02 12:33] LABS: Creatinine Urine 169.83 mg/dL; Microalbum/Creatinine Ratio Ur 54.7 ug/mg cr (<30)
[2025-03-02 13:27] LABS: CT PCR NOT DETECTED (Not Detect.); NG PCR NOT DETECTED (Not Detect.)
[2025-03-02 13:30] LABS: HBS Num1 0.89 mIU/mL (0-7.99); HBsAGNum1 0.43 S/CO (0.00-0.99); HIV AB/AG Nonreactive (Nonreactive); HIV Num 1 0.08 S/CO (0.00-0.99); Hepatitis B Core Antibody Nonreactive (Nonreactive); Hepatitis B Surface Antigen Negative (Negative); ~HepC Num1 0.17 S/CO (0.00-0.79); ~Hepatitis B Surface Antibody NONREACTIVE (Nonreactive); ~Hepatitis C Antibody Nonreactive (Nonreactive)
[2025-03-03 09:23] LABS: Varicella IgG Antibody <1.00 S/CO
[2025-03-03 09:33] LABS: Mumps Virus IgG Antibody <9.00 AU/mL
[2025-03-04 08:35] LABS: Hepatitis A Antibody IgG Nonreactive (Nonreactive); ~Hepatitis A Antibody IgG 0.86 S/CO (0.00-0.99)
[2025-03-04 12:58] LABS: RPR Rapid Plasma Reagin NON-REACTIVE (NON-REACTIVE)
[2025-03-04 23:38] LABS: TS Negative Control Passed; TS Panel A 1; TS Panel B 1; TS Positive Control Passed; TSpotTB Negative (Negative)
== END 2025-03-02 08:45 | disposition home or self-care (01) ==
LOC: HO.LAB 08:44
PROVIDERS: PCP Family Medicine; Visit Provider Family Medicine
DX: I25.10 Atherosclerotic heart disease of native coronary artery without angina pectoris (principal); E03.9 Hypothyroidism, unspecified; G47.33 Obstructive sleep apnea (adult) (pediatric); Z00.00 Encounter for general adult medical examination without abnormal findings
CPT/HCPCS: 80048; 80061; 80076; 82043; 82306; 82570; 83036; 84439; 84443; 85027; 86481; 86592; 86704; 86706; 86708; 86735; 86762; 86765; 86787; 86803; 87340; 87389; 87491; 87591

== ENCOUNTER 2025-04-26 09:55 | Outpatient (AMB) | payer MEDICAID, SELFPAY ==
[2025-04-26 10:24] VITALS: BP 144/82; PULSE 80; BMI 47.9
--- NOTE | 2025-04-26 10:24 | MHC.OFFVIS ---
Vital Signs 04/26/25 10:24 Height 5 ft 9 in Weight 324 lb 1.272 oz BMI 47.9 BP 144/82 H Blood Pressure Location Lt brachial Position Sitting Pulse 80 Intake Visit Reasons: 3m follow up/ echo/labs Intake Note: 3 month follow-up after echo feeling good Library Specialist Services: Library Specialist Present Library Specialist Name: Dominique Oglesby Allergies Aspirin Allergy (Severe, Uncoded 02/10/25 06:24) Anaphylaxis Penicillin Allergy (Severe, Uncoded 02/10/25 06:24) Anaphylaxis Medication List - Last Reconciled 04/26/25 by Kush Alvarez MD cholecalciferol (vitamin D3) 125 mcg PO DAILY docusate sodium (Colace) 100 mg PO DAILY levothyroxine 25 mcg PO DAILY metoprolol succinate ER (Toprol XL) 50 mg PO DAILY thiamine HCl (vitamin B1) 100 mg PO DAILY 90 days tirzepatide (weight loss) (Zepbound) 5 mg subcut .QMONDAY valsartan 80 mg PO DAILY vitamin A palmitate 10,000 units PO DAILY HPI Comments Details: Trino comes for follow-up. 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 Patient says he was scheduled for bariatric surgery but on day of surgery was canceled because of question NPO status as well as food in his stomach. And after that he was quite upset. He said he does not want to reconsider pursuing bariatric surgery at this point time as he is having good result with GLP 1 antagonist and currently losing weight. His most recent echocardiogram showed improved LV EF to 50-55%. He is taking all his medications. Using CPAP therapy. He does not have any heart failure symptoms. Remains very functional. Denies worsening shortness of breath, orthopnea, PND, leg edema. No chest pain or lightheadedness or syncope. [facility] Medical History Asthma Acute non-ST elevation myocardial infarction (NSTEMI) GERD (gastroesophageal reflux disease) Sleep apnea with use of continuous positive airway pressure (CPAP) Morbid obesity Surgical History History of surgery History of kidney surgery Family History Father Coronary artery disease Diabetes Hypertension Mother Asthma Sister No problems noted. Sister No problems noted. Sister No problems noted. Sister No problems noted. Sister No problems noted. Brother No problems noted. Brother No problems noted. Son No problems noted. Daughter No problems noted. Social History Household Members: Spouse, Family and Children Housing: House Are you a primary technical healthcare consultant to a significant other at home: No Do you presently have visiting nurse or other home services: No Alcohol intake: never Patient Tobacco Use Status: Former Tobacco user Tobacco use type: Cigarette service: No Review of Systems Const Denies chills, Denies fatigue, Denies fever(s), Denies frequent falls, Denies weakness, Denies weight gain and Denies weight loss ENT Denies dizziness Card Denies chest pain, Denies leg edema, Denies lightheadedness, Denies palpitations, Denies dyspnea, Denies dyspnea on exertion, Denies orthopnea and Denies other (loss of consciousness) Resp Denies cough, Denies dyspnea and Denies dyspnea on exertion GI Denies hematochezia and Denies change in stool character Musc Denies abnormal gait, Denies muscle weakness, Denies numbness, Denies radiating pain into limb and Denies tingling Neuro Denies abnormal gait, Denies dizziness, Denies frequent falls, Denies numbness, Denies tingling and Denies weakness Endo Denies fatigue and Denies palpitations Physical Exam Vital Signs: Last Vital Signs Pulse 80 04/26/25 10:24 BP 144/82 H 04/26/25 10:24 BMI result Body Mass Index 47.9 Last Vital Signs Temp 98.0 F 08/06/21 07:23 Pulse 75 08/06/21 07:23 Resp 20 08/06/21 07:23 BP 115/66 08/06/21 07:23 Pulse Ox 91 L 08/06/21 07:23 Body Mass Index 47.2 Const General: cooperative, comfortable, no acute distress, alert and awake Nutritional Appearance: obese morbidly obese Orientation/consciousness: patient oriented x3 Limitations: no limitations Neck Neck: Yes trachea midline, Yes supple and Yes no JVD Chest Chest palpation & inspection: normal inspection of the chest Resp Effort & Inspection: normal respiratory effort Auscultation: clear to auscultation bilaterally Cardio Jugular venous distension: no JVD Palpation: normal PMI Rate: regular rate Rhythm: regular rhythm Heart sounds: S1 normal heart sound present, S2 normal heart sound present, no click, no gallops, no murmurs and no rubs GI Inspection: Yes Abdominal panniculus present and Yes obesity Auscultation: normal bowel sounds Skin General skin exam: no rashes or lesions noted Neuro General: patient oriented x3 and no focal motor deficits Extrem General: Yes no clubbing, cyanosis or edema Psych Appearance: grossly normal Assessment & Plan Assessment & Plan (1) Cardiomyopathy: Code(s): I42.9 - Cardiomyopathy, unspecified Category: Medical Plan: Cardiomyopathy process, nonischemic. Doing extremely well with medical therapy with no signs or symptoms of heart failure. NYHA class 1. LV ejection fraction has improved. Continue current neurohormonal modulation with metoprolol as as valsartan. Continue CPAP therapy. He would continue to benefit from aggressive weight loss program in [facility] to do the same. Will continue with Zepbound to help him with lose weight. Other methods of losing weight were discussed. He currently does not want to reconsider bariatric surgery at this point time. Encouraged to continue maintain activity level as tolerated. Cardiotoxic agents to be avoided. Will follow up in the clinic in 6 months time, sooner p.r.n.. Thank you for allowing me to partake in his care Medications: New tirzepatide (weight loss) (Zepbound) 5 mg (0.5 mL) subcut .QMONDAY 2 mL 5RF Coding Level of Care Code Est Pt Level 4 (91106) Complex EM visit Add On G2211 Diagnoses Cardiomyopathy I42.9
--- OUTSIDE RECORDS SUMMARY | 2025-04-26 10:44 | XMS_ITS | Clinical Summary ---
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 Name Role Phone Maria Esther Way DO Primary Care Provider [phone] Allergies Active Allergy Reactions Criticality Noted Date Comments Aspirin 05/27/2022 Aspirin Buffered Other High 09/03/2017 Penicillins 09/03/2017 Medications Zepbound 5 MG/0.5ML solution auto-injector INYECTE 0.5 ML POR V A SUBCUT ATIF SEMANALMENTE 5 Active valsartan (Diovan) 80 MG tablet TOME 1 TABLETA POR V A ORAL TODOS LOS D 5 Active thiamine (Vitamin B-1) 100 MG tablet TOME 1 TABLETA POR V A ORAL TODOS LOS D 5 Active metoprolol succinate XL (Toprol-XL) 50 MG 24 hr tablet TOME 1 TABLETA POR V A ORAL TODOS LOS D Active cholecalciferol (Vitamin D-3) 125 MCG (5000 UT) capsule Take 1 capsule by mouth Once per day. 5 Active beta carotene (vitamin A) 3 MG (65668 UT) capsule Take 1 capsule (3 mg) by mouth Once per day. 90 capsule 5 02/29/20 26 Active levothyroxine (Synthroid) 50 MCG tablet Take 1 tablet (50 mcg) by mouth before breakfast. 90 tablet 3 5 03/23/20 26 Active Active Problems Problem Noted Date Diagnosed Date Obstructive sleep apnea 02/28/2025 Coronary artery disease 02/28/2025 Hypothyroidism 02/28/2025 BMI 40.0-44.9, adult 02/28/2025 History of myocardial infarction 02/28/2025 Encounters Date Type Department Care Team Description 03/22/2025 Refill [facility] [address] [facility] [address] DO 02/28/2025 1:15 PM EDT Office Visit [phone] DO Routine history and physical examination of adult (Primary Dx); Essential hypertension; Hypothyroidism, unspecified type; Coronary artery disease involving northern cheyenne heart without angina pectoris, unspecified vessel or lesion type; Obstructive sleep apnea; BMI 40.0-44.9, adult ([facility]); Dietary counseling; Exercise counseling 02/28/2025 Travel 02/22/2025 Travel 02/22/2025 [address]phone [address] [place] [address] DO telephone call 02/17/[address] DO Chart Prep from Last 3 Months Immunizations Immunization Administration Dates Next Due Influenza injectable quadrivalent preservative f ree 09/22/2017 Tdap 09/22/2017 Family History Medical History Relation Name Comments Diabetes Father Hypertension Father Thyroid disease Father Diabetes Father's Brother Asthma Mother Leukemia Mother's Sister Heart disease Paternal Grandmother Hypertension Paternal Grandmother Relation Name Status Comments Father Father's Brother Mother Mother's Sister Paternal Grandmother Social History Tobacco Use Types Packs/Day Years Used Date Smoking Tobacco: Never Smokeless Tobacco: Never Tobacco Cessation:Counseling Given: Not Answered Alcohol Use Standard Drinks/Week Comments Never 0 (1 standard drink = 0.6 oz pur e alcohol) Depression Answer Date Recorded Patient Health Questionnaire-9 Score 6 03/01/2025 Patient Health Questionnaire-9 Score 6 03/01/2025 Last PHQ-9: Questionnaire Data Not on file 0 03/01/2025 Housing Stability Answer Date Recorded What is your housing situation today? I have ching mccormick 03/01/[address] you li ve. Do you have problems with any of the following? None of the above 03/01/2025 Food Insecurity Answer Date Recorded Within the past 12 months, y ou worried that your food would run out before you got money to buy more: Never True 03/01/2025 Within the past 12 months,th e food you bought just didn't last and you didn't have enough money to get more: Never True Transportation Answer Date Recorded In the past 12 months, has l ack of transportation kept you from medical appts, meetings, work or from getting things needed for daily living? No 03/01/2025 Utilities Answer Date Recorded In the past 12 months, has t he electric, gas, oil or water company threatened to shut off services in your home? No 03/01/2025 Depression Answer Date Recorded Patient Health Questionnaire-2 Score 1 03/01/2025 Internet Access Answer Date Recorded Internet Access Q1 Yes 03/01/2025 Internet Access Q2 Not on file 03/01/2025 Sex and Gender Information Value Date Recorded Sex Assigned at Male 07/15/2022 10:38 AM EDT Legal Sex Male 10:38 AM EDT Gender Identity Male 07/15/2022 10:38 AM EDT Sexual Orientation Straight 07/15/2022 10 :38 AM EDT Last Filed Vital Signs Vital Sign Reading Time Taken Comments Blood Pressure 132/70 02/28/2025 1:12 PM EDT Pulse 82 02/28/2025 1:12 PM EDT Temperature 36.3 C (97.3 F) 02/28/2025 1:12 PM EDT Respiratory Rate 19 02/28/2025 1:12 PM EDT Oxygen Saturation 98% 02/28/2025 1:12 PM EDT Inhaled Oxygen Concentration - - Weight 144 kg (316 lb 6 oz) 02/28/2025 1:12 PM E DT Height 180.3 cm (5' 11 ) 02/28/2025 1:12 PM EDT Body Mass Index 44.13 02/28/2025 1:12 PM EDT Plan of Treatment Health Maintenance Due Date Last Done Comments Family Planning (PISQ) 1997 HPV Vaccines (1 - Male 3-dos e series) 1997 Hepatitis B Vaccines (1 of 3 - 19+ 3-dose series) 2001 Pneumococcal Vaccine: Pediatrics (0 to 5 Years) and At-Risk Patients (6 to 49) Years (1 of 2 - PCV) 2001 COVID-19 Vaccine (3 - 2023-2 5 season) 2024 03/12/2021, 12/26/2020 Influenza Vaccine (#1) 2025 09/22/2017 Alcohol/Substance Use Screening 02/28/2026 02/28/2025 Tobacco Screening 02/28/2026 02/28/2025 Depression Screening 03/01/2026 03/01/2025, 03/01/2025 Disability Screening 03/01/2026 03/01/2025 SDOH Screening 03/01/2026 03/01/2025 DTaP/Tdap/Td Vaccines (2 - T d or Tdap) 09/22/2027 09/22/2017 Lipid Panel 03/02/2030 03/02/2025 Zoster Vaccines (1 of 2) 2032 RSV Patients and Patients Aged 60 years or older (1 - 1-dose 75+ series) 2057 HIV Screening Completed 03/02/2025, 08/29/2021, 08/29/2021 Hepatitis C Screening Completed 03/02/2025 HIB Vaccines Aged Out No longer eligi ble based on patient's age to complete this topic Hepatitis A Vaccines Aged Out No long er eligible based on patient's age to complete this topic IPV Vaccines Aged Out No longer eligi ble based on patient's age to complete this topic Meningococcal B Vaccine Aged Out No l onger eligible based on patient's age to complete this topic Meningococcal Vaccine Aged Out No norman inessa eligible based on patient's age to complete this topic RSV under 20 months Aged Out No longe r eligible based on patient's age to complete this topic Rotavirus Vaccines Aged Out No longer eligible based on patient's age to complete this topic Procedures Procedure Name Priority Date/Time Associated Diagnosis Comments T-SPOT(R).TB Routine 03/02/2025 9:32 AM EDT Routine history and physical examination of adult Coronary artery disease involving northern cheyenne heart without angina pectoris, unspecified vessel or lesion type Hypothyroidism, unspecified type Obstructive sleep apnea BMI 40.0-44.9, adult ([facility]) Dietary counseling Exercise counseling HEPATITIS B CORE AB TOTAL Routine 03/02/2025 9:32 AM EDT Routine history and physical examination of adult Coronary artery disease involving northern cheyenne heart without angina pectoris, unspecified vessel or lesion type Hypothyroidism, unspecified type Obstructive sleep apnea BMI 40.0-44.9, adult [place] Dietary counseling Exercise counseling VARICELLA ZOSTER ANTIBODY, IGG Routine 03/02/2025 9:32 AM EDT Routine history and physical examination of adult Coronary artery disease involving northern chey[place] heart without angina pectoris, unspecified vessel or lesion type Hypothyroidism, unspecified type Obstructive sleep apnea BMI 40.0-44.9, adult ([facility] Dietary counseling Exercise counseling HEPATITIS B SURFACE ANTIBODY, QUALITATIVE Routine 03/02/2025 9:32 AM EDT Routine history and physical examination of adult Coronary artery disease involving northern chey[place] heart without angina pectoris, unspecified vessel or lesion type Hypothyroidism, unspecified type Obstructive sleep apnea BMI 40.0-44.9, adult ([facility] Dietary counseling Exercise counseling HEPATITIS C AB W/REFL TO HCV RNA, QN, PCR Routine 03/02/2025 9:32 AM EDT Routine history and physical examination of adult Coronary artery disease involving northern cheyenne heart without angina pectoris, unspecified vessel or lesion type Hypothyroidism, unspecified type Obstructive sleep apnea BMI 40.0-44.9, adult ([facility] Dietary counseling Exercise counseling HIV 1/2 ANTIGEN/ANTIBODY, FOURTH GENERATION W/RFL Routine 03/02/2025 9:32 AM EDT Routine history and physical examination of adult Coronary artery disease involving northern cheyenne heart without angina pectoris, unspecified vessel or lesion type Hypothyroidism, unspecified type Obstructive sleep apnea BMI 40.0-44.9, adult ([facility] Dietary counseling Exercise counseling HEPATITIS B SURFACE ANTIGEN, EIA Routine 03/02/2025 9:32 AM EDT Routine history and physical examination of adult Coronary artery disease involving northern cheyenne heart without angina pectoris, unspecified vessel or lesion type Hypothyroidism, unspecified type Obstructive sleep apnea BMI 40.0-44.9, adult ([facility] Dietary counseling Exercise counseling HEPATITIS A ANTIBODY, TOTAL Routine 03/02/2025 9:28 AM EDT Routine history and physical examination of adult Coronary artery disease involving northern cheyenne heart without angina pectoris, unspecified vessel or lesion type Hypothyroidism, unspecified type Obstructive sleep apnea BMI 40.0-44.9, adult ([facility] Dietary counseling Exercise counseling MEASLES, MUMPS, AND RUBELLA (MMR) AB (IGG) PANEL, IMMUNE STATUS Routine 03/02/2025 9:28 AM EDT Routine history and physical examination of adult Coronary artery disease involving northern cheyenne heart without angina pectoris, unspecified vessel or lesion type Hypothyroidism, unspecified type Obstructive sleep apnea BMI 40.0-44.9, adult ([facility] Dietary counseling Exercise counseling RPR (MONITOR) W/REFL TITER Routine 03/02/2025 9:28 AM EDT Routine history and physical examination of adult Coronary artery disease involving northern cheyenne heart without angina pectoris, unspecified vessel or lesion type Hypothyroidism, unspecified type Obstructive sleep apnea BMI 40.0-44.9, adult ([facility] Dietary counseling Exercise counseling CBC Routine 03/02/2025 9:28 AM EDT Routine history and physical examination of adult Coronary artery disease involving northern cheyenne heart without angina pectoris, unspecified vessel or lesion type Hypothyroidism, unspecified type Obstructive sleep apnea BMI 40.0-44.9, adult ([facility] Dietary counseling Exercise counseling BASIC METABOLIC PANEL Routine 03/02/2025 9:28 AM EDT Routine history and physical examination of adult Coronary artery disease involving northern cheyenne heart without angina pectoris, unspecified vessel or lesion type Hypothyroidism, unspecified type Obstructive sleep apnea BMI 40.0-44.9, adult ([facility] Dietary counseling Exercise counseling HEMOGLOBIN A1C Routine 03/02/2025 9:28 AM EDT Routine history and physical examination of adult Coronary artery disease involving northern cheyenne heart without angina pectoris, unspecified vessel or lesion type Hypothyroidism, unspecified type Obstructive sleep apnea BMI 40.0-44.9, adult ([facility] Dietary counseling Exercise counseling HEPATIC FUNCTION PANEL Routine 03/02/2025 9:28 AM EDT Routine history and physical examination of adult Coronary artery disease involving northern cheyenne heart without angina pectoris, unspecified vessel or lesion type Hypothyroidism, unspecified type Obstructive sleep apnea BMI 40.0-44.9, adult ([facility] Dietary counseling Exercise counseling TSH Routine 03/02/2025 9:28 AM EDT Routine history and physical examination of adult Coronary artery disease involving northern cheyenne heart without angina pectoris, unspecified vessel or lesion type Hypothyroidism, unspecified type Obstructive sleep apnea BMI 40.0-44.9, adult ([facility] Dietary counseling Exercise counseling LIPID PANEL, STANDARD Routine 03/02/2025 9:28 AM EDT Routine history and physical examination of adult Coronary artery disease involving northern cheyenne heart without angina pectoris, unspecified vessel or lesion type Hypothyroidism, unspecified type Obstructive sleep apnea BMI 40.0-44.9, adult ([facility] Dietary counseling Exercise counseling VITAMIN D,25-OH,TOTAL,IA Routine 03/02/2025 9:28 AM EDT Routine history and physical examination of adult Coronary artery disease involving northern cheyenne heart without angina pectoris, unspecified vessel or lesion type Hypothyroidism, unspecified type Obstructive sleep apnea BMI 40.0-44.9, adult ([facility] Dietary counseling Exercise counseling T4, FREE Routine 03/02/2025 9:28 AM EDT Routine history and physical examination of adult Coronary artery disease involving northern cheyenne heart without angina pectoris, unspecified vessel or lesion type Hypothyroidism, unspecified type Obstructive sleep apnea BMI 40.0-44.9, adult ([facility] Dietary counseling Exercise counseling ALBUMIN, RANDOM URINE W/CREATININE Routine 03/02/2025 9:00 AM EDT Routine history and physical examination of adult Coronary artery disease involving northern cheyenne heart without angina pectoris, unspecified vessel or lesion type Hypothyroidism, unspecified type Obstructive sleep apnea BMI 40.0-44.9, adult ([facility] Dietary counseling Exercise counseling CHLAMYDIA/N. GONORRHOEAE RNA, TMA, UROGENITAL Routine 03/02/2025 9:00 AM EDT Routine history and physical examination of adult Coronary artery disease involving northern cheyenne heart without angina pectoris, unspecified vessel or lesion type Hypothyroidism, unspecified type Obstructive sleep apnea BMI 40.0-44.9, adult ([facility]) Dietary counseling Exercise counseling from Last 3 Months Results * T-SPOT??.TB (03/02/2025 9:32 AM EDT) T Spot TB Negative Negative [facility] Comment:A negative test resu lt does not exclude the possibilityof exposure to or infection with Mycobacteriumtuberculosis (M. tuberculosis). Patients with recentexposure to TB infected individuals exhibiting anegative T-SPOT.TB result should be considered forretesting within 6 weeks or if other relevant clinicalsymptoms indicate. Results from T-SPOT.TB testing mustbe used in conjunction with each individual'sepidemiological history, current medical status,and results of other diagnostic evaluations.The T-SPOT.TB test is qualitative and results arereported as positive, borderline, or negative, giventhat the test controls perform as expected. In linewith the Centers for Disease Control and Prevention's2010 recommendation to report quantitative measurementsalongside the qualitative result, the laboratoryprovides spot counts for informational purposes only.The T-SPOT.TB test should not be interpreted as aquantitative test. TS PANEL A 1 [facility] TS PANEL B 1 [facility] Negative Control Passed [facility] Positive Control Passed [facility] Comment:For additional infor barney, please refer tohttp://education.Mohound/faq/TAB959(This link is being provided for informational/educational purposes only.)THIS TEST WAS PERFORMED AT:[employer]/[id number] [place] [id number] GRUBBS MD,PHD 03/02/2025 9:32 AM EDT 03/02/2025 9:[address] DO LAB BLOOD ORDERABLES Final R esult Performing Organization Address [facility] Co de Phone Number [facility] [address] [place] [address] [phone] * Hepatitis C Antibody with Reflex to HCV, RNA, Quantitative, Real-Time PCR (03/02/2025 9:32 AM EDT) Hepatitis C Antibody Nonreactive Nonreactive [facility] Comment:Antibodies to HCV no t detected; does not exclude early acuteHCV infection. Blood Venous blood specimen / Unknown 03/02/2025 9:32 AM EDT 03/02/2025 9:32 AM EDT us Maria Esther [address] DO LAB BLOOD ORDERABLES Final R esult Performing Organization Address [facility] Co de Phone Number [facility] [address] [place] [phone] * Hepatitis B surface antigen, EIA (03/02/2025 9:32 AM EDT) Hepatitis B Surface Ag Negative Negative [facility] Blood Venous blood specimen / Unknown 03/02/2025 9:32 AM EDT 03/02/2025 9:[address] DO LAB BLOOD ORDERABLES Final R esult Performing Organization Address [facility] Co de Phone Number [facility] [address] [place] [phone] * Hepatitis B Core Antibody, Total (03/02/2025 9:32 AM EDT) Hepatitis B Core Antibody Nonreactive Nonreactive [facility] Blood Venous blood specimen / Unknown 03/02/2025 9:32 AM EDT 03/02/2025 9:[address] DO LAB BLOOD ORDERABLES Final R esult Performing Organization Address City/[facility] Co de Phone Number [facility] [address] [place] [phone] * HIV-1/2 Antigen and Antibodies, Fourth Generation, with Reflexes (03/02/2025 9:32 AM EDT) HIV AB/AG Nonreactive Nonreactive [facility] Comment:HIV-1 p24 Ag and/or HIV-1/HIV-2 Ab not detected.A test result that is nonreactive does not exclude thepossibility of exposure to or infection with HIV-1 and/orHIV-2. Nonreactive results in this assay for individualswith prior exposure to HIV-1 and/or HIV-2 may be due toantigen and antibody levels that are below the limit ofdetection of this assay.The [employer] HIV Ag/Ab Combo assay result andsupplemental assay results should be interpreted inconjunction with the patient's clinical presentation,history and other laboratory results. If the results areinconsistent with clinical evidence, additional testing issuggested to confirm the result. Blood Venous blood specimen / Unknown 03/02/2025 9:32 AM EDT 03/02/2025 9:[address] DO LAB BLOOD ORDERABLES Final R esult Performing Organization Address [facility] Co de Phone Number [facility] [address] [place] [address] [phone] * Hepatitis B Surface Antibody, Qualitative (03/02/2025 9:32 AM EDT) ~Hepatitis B Surface Antibody NONREACTIVE Nonreactive [facility] Comment:Nonreactive: < 8.00 mIU/mL Blood Venous blood specimen / Unknown 03/02/2025 9:32 AM EDT 03/02/2025 9:[address] DO LAB BLOOD ORDERABLES Final R esult Performing Organization Address [facility]/ZIP Co de Phone Number [facility] [address] [place] [phone] * (ABNORMAL) Varicella zoster antibody, IgG (03/02/2025 9:32 AM EDT) Pathologist [facility] Varicella IgG Antibody <1.00(A) S/CO [facility] Comment:Signal to Cut-off S/ CO Interpretation --------- <1.00 Negative - Antibody not detected > or = 1.00 Positive - Antibody detected A positive result indicates that the patient has antibody to VZV but does not differentiate between an active or past infection. The clinical diagnosis must be interpreted in conjunction with the clinical signs and symptoms of the patient. This assay reliably measures immunity due to previous infection but may not be sensitive enough to detect antibodies induced by vaccination. Thus, a negative result in a vaccinated individual does not necessarily indicate susceptibility to VZV infection. A more sensitive test for vaccination-induced immunity is Varicella Zoster Virus Antibody Immunity Screen, ACIF.THIS TEST WAS PERFORMED AT:[employer] [place] [id number] DIAZ MD Blood Venous blood specimen / Unknown 03/02/2025 9:32 AM EDT 03/02/2025 9:[address] DO LAB BLOOD ORDERABLES Final R esult [facility] [address] [place] [phone] * Vitamin D, 25-Hydroxy, Total, Immunoassay (03/02/2025 9:28 AM EDT) [facility] Vitamin D 25-OH Total 34.4 >30 ng/mL [facility] Comment: Health Based Reference Values*< 20 ng/mL Fuwlpxisz27-55 ng/mL Insufficient> 30 ng/mL Sufficient*Leo HINTON. N Engl J Med. 2007;357:266-280There is no well-established upper level of normal vitamin Dlevels. Some laboratories use 50 ng/mL as an upper limit ofnormal. However, toxicity is patient-dependent and may occurat any level. Careful correlation with the patient'spresentation is necessary and, if there is concern forvitamin D toxicity, treatment should be consideredirrespective of the serum level.Care must be taken in interpreting Vitamin D results fromdifferent laboratories and methodologies. Published datademonstrated that results from patients undergoinghemodialysis may show a negative bias when tested withvarious automated 25-OH vitamin D assays when compared toLC-MS/MS.When testing samples from patients whose predominant form ofVitamin D is Vitamin D2, such as patients receiving VitaminD2 supplementation, results that are subtherapeutic shouldbe confirmed with another method such as LC-MS/MS. Blood Venous blood specimen / Unknown 03/02/2025 9:28 AM EDT 03/02/2025 9:[address] DO LAB BLOOD ORDERABLES Final R esult [facility] [address] [place] [phone] * (ABNORMAL) Measles, Mumps, and Rubella (MMR) Antibodies??(IgG) Panel, Immune Status (03/02/2025 9:28 AM EDT) Mumps Virus IgG Antibody <9.00(A) AU/mL [facility] Comment:AU/mL Interpretation ------- <9.00 Not consistent with immunity9.00-10.99 Equivocal>10.99 Consistent with immunityThe presence of mumps IgG antibody suggests immunizationor past or current infection with mumps virus. Rubella IgG Antibody 27.80 Index [facility] Comment:Index Interpretation ----- <0.90 Not consistent with immunity 0.90-0.99 Equivocal > or = 1.00 Consistent with immunityThe presence of rubella IgG antibody suggestsimmunization or past or current infection withrubella virus.THIS TEST WAS PERFORMED AT:[employer] [place] [id number] Liam CHUNG IgG (Measles) 13.70(A) AU/mL [facility] Comment:AU/mL Interpretatio n----- <13.50 Not consistent with eudtnvet38.50-16.49 Equivocal>16.49 Consistent with immunityThe presence of measles IgG suggests immunization orpast or current infection with measles virus.For additional information, please refer tohttp://education.Triprental.com/faq/HPN835(This link is being provided for informational/educational purposes only.) Blood Venous blood specimen / Unknown 03/02/2025 9:28 AM EDT 03/02/2025 9:28 AM EDT [facility] BLO[facility] ORDERABLES Final R esult Performing Organization Address City/[facility]/ZIP Co de Phone Number [facility] [address] [place] [phone] * Hepatitis A Antibody, Total (03/02/2025 9:28 AM EDT) Hepatitis A Antibody IgG Nonreactive Nonreactive [facility] Blood Venous blood specimen / Unknown 03/02/2025 9:28 AM EDT 03/02/2025 9:28 AM EDT [facility]LOOD ORDERABLES Final R esult Performing Organization Address [facility]/ZIP Co de Phone Number [facility] [address] [place] [phone] * RPR (Monitor) with Reflex to??Titer (03/02/2025 9:28 AM EDT) RPR (Monitor) w/Refl Titer NON-REACTI VE NON-REACT AGA [facility] Comment:THIS TEST WAS PERFOR MED AT:[facility] [place] [phone] DIAZ MD Rapid Plasma Reagin Ab Titer TNP [facility] Blood Venous blood specimen / Unknown 03/02/2025 9:28 AM EDT 03/02/2025 9:28 AM EDT us Maria Esther [address] DO LAB BLOOD ORDERABLES Final R esult [facility] [address] [place] [phone] * CBC (03/02/2025 9:28 AM EDT) White Blood Count 7.0 4.8 - 10.8 X10*3/uL [facility] Red Blood Count 5.69 4.60 - 5.80 X10*6/uL [facility] Hemoglobin 15.9 14.0 - 18.0 g/dl [facility] Hematocrit 49.2 42.0 - 52.0 % [facility] Mean Corpuscular Volume 86.5 80.0 - 98.0 fL [facility] Mean Corpuscular Hemoglobin 27.9 27.0 - 33.0 pg [facility] Mean Corpuscular HGB Conc 32.3 31.0 - 36.0 g/dl [facility] Red Cell Distribution Width 14.7 11.0 - 16.0 % [facility] Platelet Count 206 160 - 400 X10*3/uL [facility] Mean Platelet Volume 10.9 9.4 - 12.4 fL [facility] NRBC Pct Auto 0.0 0.0 - 0.2 /100WBC [facility] NRBC Abs Auto 0.000 0.0 - 0.012 X10*3/uL [facility] Blood Venous blood specimen / Unknown 03/02/2025 9:28 AM EDT 03/02/2025 9:28 AM EDT us Maria Esther Seamus DO LAB BLOOD ORDERABLES Final R esult Performing Organization Address [facility] Co de Phone Number [facility] [address] [place] [phone] * (ABNORMAL) TSH (03/02/2025 9:28 AM EDT) Thyroid Stimulating Hormone 4.47(H) 0.32 - 4.0 uIU/mL [facility] Comment:Note: A sustained TS H level above 2.5 uIU/mL may warrant further investigation. TSH 3rd Generation ([facility]) Blood Venous blood specimen / Unknown 03/02/2025 9:28 AM EDT 03/02/2025 9:28 AM EDT Maria Esther Seamus DO LAB BLOOD ORDERABLES Final R esult Performing Organization Address [facility] Co de Phone Number [facility] [address] [place] [phone] * T4, Free (03/02/2025 9:28 AM EDT) Free T4 (Free Thyroxine) 0.99 0.71 - 1.85 ng/dL [facility] Blood Venous blood specimen / Unknown 03/02/2025 9:28 AM EDT 03/02/2025 9:28 AM EDT Maria Esther Seamus DO LAB BLOOD ORDERABLES Final R esult Performing Organization Address [facility] Co de Phone Number [facility] [address] [place] [phone] * Hemoglobin A1c (03/02/2025 9:28 AM EDT) Hemoglobin A1c 5.5 <6.0 % [facility] Comment:Hemoglobin A1C Refer ence Range Adults: 4.8 - 6.0 % Non diabetic: < 6.0 % Goal: < 7.0 %Additional Action Suggested: > 8.0 %Note: Hemoglobin A1c results are invalid for patients with abnormal amounts of HbF. Blood transfusions may impact the HbA1c concentration in the patient sample. Estimated Average Glucose 111 mg/dL [facility] Comment:eAG = Estimated ave rage glucose which is %A1C expressed asaverage glucose, using the formula of the Q1T-AdmkorxQlcbcen Glucose study (ADAG), Diabetes Care, Vol.31,#8,2007 Blood Venous blood specimen / Unknown 03/02/2025 9:28 AM EDT 03/02/2025 9:[address] DO LAB BLOOD ORDERABLES Final R esult Performing Organization Address [facility] Co de Phone Number [facility] [address] [place] [phone] * Hepatic Function Panel (03/02/2025 9:28 AM EDT) Bilirubin, Total 0.6 0.0 - 1.0 mg/dL [facility] Bilirubin, Direct 0.2 0.0 - 0.5 mg/dL [facility] Aspartate Amino Transferase 23 5 - 37 U/L [facility] Alanine Aminotransferase 26 0 - 40 U/L [facility] Total Protein 7.9 6.5 - 8.0 g/dL [facility] Albumin Level 4.3 3.5 - 5.0 g/dL [facility] Alkaline Phosphatase 82 39 - 117 U/L [facility] Blood Venous blood specimen / Unknown 03/02/2025 9:28 AM EDT 03/02/2025 9:[address] DO LAB BLOOD ORDERABLES Final R esult Performing Organization Address [facility] Co de Phone Number [facility] [address] [place] [phone] * (ABNORMAL) Lipid Panel, Standard (03/02/2025 9:28 AM EDT) Triglycerides 108 <150 mg/dL [facility] Comment:Desirable Triglyceri de: less than 150 mg/dLBorderline High Triglyceride 150-199 mg/dLHigh Triglyceride: 200-499 mg/dLVery High Triglyceride: greater than or equal to 5OO mg/dL Cholesterol 153 <200 mg/dL [facility] Comment:Desirable Cholestero l: less than 200 mg/dLBorderline High Cholesterol: 200-239 mg/dLHigh Cholesterol: greater than 239 mg/dL LDL Cholesterol Calculated 103(H) <100 mg/dL [facility] Comment:Desirable LDL: less than 100 mg/dLNear Optimal/Above Optimal LDL: 110- 129 mg/dLBorderline High LDL: 130-159 mg/dLHigh LDL: 160-189 mg/dLVery High LDL: greater than or equal to 190 mg/dL HDL Cholesterol 29(L) >40 mg/dL [facility] Comment:Desirable HDL: great er than 40 mg/dL Note: This HDL assay may give artificially low results in patients with liver disease. Blood Venous blood specimen / Unknown 03/02/2025 9:28 AM EDT 03/02/2025 9:28 AM EDT us Maria Esther Way DO LAB BLOOD ORDERABLES Final R esult [facility] [address] [place], [place] [phone] * (ABNORMAL) Basic Metabolic Panel (03/02/2025 9:28 AM EDT) Sodium 140 135 - 145 mmol/L [facility] Potassium 3.6 3.3 - 5.1 mmol/L [facility] Chloride 108 96 - 108 mmol/L [facility] Carbon Dioxide 24 22 - 29 mmol/L [facility] Anion Gap 12 12 - 20 [facility] Urea Nitrogen (BUN) 8(L) 9 - 16 mg/dL [facility] Creatinine, Serum 0.60 0.5 - 1.4 mg/dL [facility] Estimated Glomerular Filt Rate >60 [facility] Comment:Chronic Kidney Disea se: Estimated GFR < 60 mL/min/1.27b2Tytxyr Kidney Disease: Estimated GFR < 15 mL/min/1.73m2 Glucose 104 60 - 115 mg/dL [facility] Calcium 9.4 8.4 - 10.2 mg/dL [facility] Blood Venous blood specimen / Unknown 03/02/2025 9:28 AM EDT 03/02/2025 9:28 AM EDT us Maria Esther [address] [employer] LAB BLOOD ORDERABLES Final R esult Performing Organization Address [facility] Co de Phone Number [facility] [address] [place] [address] [phone] * (ABNORMAL) Albumin, Random Urine W/Creatinine (03/02/2025 9:00 AM EDT) Creatinine, Urine 169.83 mg/dL [facility] Microalbumin Urine 93.0 mg/L [facility] Microalbum Creatinine Ratio Ur 54.7(H) <30 ug/mg cr [facility] Comment:Albumin/Creatinine R atio Reference Ranges: Normal: < 30 ug/mg creatinine Microalbuminuria: 30 - 300 ug/mg creatinineClinical Albuminuria: > 300 ug/mg creatinine Urine (Urine, Random) 03/02/2025 9:00 AM EDT 03/02/2025 11:34 AM EDT us Maria Esther Seamus DO LAB URINE ORDERABLES Final R esult Performing Organization Address [facility] Co de Phone Number [facility] [address] [place] [address] [phone] * Chlamydia/N. Gonorrhoeae RNA, TMA, Urogenitial (03/02/2025 9:00 AM EDT) CT PCR NOT DETECTED Not Detect. [facility] Comment:A not detected test result does not exclude the possibilityof infection because test results can be affected byimproper specimen collection, concurrent antibiotic therapy,or the number of organisms in the specimen which may bebelow the sensitivity of the test. As with many diagnostictests, results from the Xpert CT/NG assay should beinterpreted in conjunction with other laboratory andclinical data available to the clinician.Xpert CT/NG performance has not been evaluated in patientsless than 14 years of age. The assay should not be used forthe evaluationof suspected sexual abuse or for other medico-legalindications. Additional testing is recommended in anycircumstance when false positive or false negative resultscould lead to adverse medical, social or psychologicalconsequences. NG PCR NOT DETECTED Not Detect. [facility] Comment:A not detected test result does not exclude the possibilityof infection because test results can be affected byimproper specimen collection, concurrent antibiotic therapy,or the number of organisms in the specimen which may bebelow the sensitivity of the test. As with many diagnostictests, results from the Xpert CT/NG assay should beinterpreted in conjunction with other laboratory andclinical data available to the clinician.Xpert CT/NG performance has not been evaluated in patientsless than 14 years of age. The assay should not be used forthe evaluationof suspected sexual abuse or for other medico-legalindications. Additional testing is recommended in anycircumstance when false positive or false negative resultscould lead to adverse medical, social or psychologicalconsequences. Urine Urethral structure / Unknown 03/02/2025 9:00 AM EDT 03/02/2025 11:34 AM EDT Narrative [facility] - 03/02/2025 1:27 PM EDT Urine us Maria Esther Way DO LAB MICROBIOLOGY - GENERAL O RDERABLES Final Result [facility] [address] [place] [phone] from Last 3 Months Insurance [employer] [id number] [place] [address] C3 Care Teams [employer] Processing [employer] Manager Relationship Specialty Start Date End Date Maria Esther Way DO [address] [place] [address] [place] [address] PCP - General Family Medicine 02/28/25
--- OUTSIDE RECORDS SUMMARY | 2025-04-26 10:44 | XMS_ITS | Clinical Summary ---
Author Organization [facility] Address [address] [place] [address] Care Team Providers Care Patrol Officer Name Role Phone Heber Benson Primary Care Provider [phone] Source Comments PLEASE NOTE, if this patient [...] Noted Date Diagnosed Date Severe obesity (BMI 35.0-35. 9 with comorbidity) (CMS & HHS-HCC) 05/27/2022 ASCVD (arteriosclerotic cardiovascular disease) 08/29/2021 Overview [...] 8:01 AM PST Sexual Orientation Straight 09/03/2017 8 :01 AM PST Last Filed Vital Signs Vital [...] Monitoring 05/27/2023 05/27/2022 Hypertension Screening (#1) 12/18/2023 Tbr-DTOPR-60 ( season) 2024 021, 12/26/2020 Alcohol and Drug Screen 09/15/2024 12/19/19 23, 12/18/2022, 05/27/2022, Additional history exists Depression Annual Screen 09/15/2024 12/18/2022, 08/16 Imm-Influenza (#1) 2025 09/22/2017 Diabetes Screening 05/27/2025 05/27/2022, 1 10/30/2020, 09/09/2017 Imm-DTaP/Tdap/Td (2 - Td or Tdap) 09/22/2027 018 HIV Screening Completed 08/29/2021 Hepatitis C Screening Completed 08/29/2021 Procedures Procedure Name Priority Date/Time Associated Diagnosis Comments TSH W/RFLX FREE T4 Routine 05/27/2022 9: 56 AM EDT Severe obesity (BMI 35.0-35.9 with comorbidity) ([facility]) Hypercholesteremia Routine adult health maintenance COMPREHENSIVE METABOLIC PANEL Routine 05/27/2022 9:56 AM EDT Severe obesity (BMI 35.0-35.9 with comorbidity) ([facility]) Hypercholesteremia Routine adult health maintenance LIPID PANEL Routine 05/27/2022 9:56 AM EDT Severe obesity (BMI 35.0-35.9 with comorbidity) ([facility]) Hypercholesteremia Routine adult health maintenance HIV [...] TO FT4 6.25(H) 0.40 - 4.50 mIU/L [facility] Blood Blood / Unknown 05/27/2022 9 :56 AM EDT 05/27/2022 9:57 AM EDT [facility] - BLOOD DRAW Final Result [employer] [employer] [facility] [address] [address], [facility] [address] [place] [address],[place] [phone] * (ABNORMAL) LIPID PANEL (05/27/2022 9:56 AM EDT) CHOLESTEROL, TOTAL 165 <200 mg/dL [facility] HDL CHOLESTEROL 37(L) > OR = 40 mg/dL [facility] TRIGLYCERIDES 118 <150 mg/dL [facility] LDL-CHOLESTEROL 107(H) 99 mg/dL (calc) [facility] Comment: Reference range: <100 Desirable range <100 mg/dL for primary prevention; <70 mg/dL for patients with CHD or diabetic patients with > or = 2 CHD risk factors. LDL-C is now calculated using the Reji calculation, which is a validated novel method providing better accuracy than the Friedewald equation in the estimation of LDL-C. Esau HATFIELD et al. JAYLA. 2013;310(19): 2831-5149 (http://education.MobileGlobe/faq/SVM138) CHOL/HDLC RATIO 4.5 <5.0 (calc) [facility] NON-HDL CHOLESTEROL 128 <130 mg/dL (calc) [facility] Comment: For patients with diabetes plus 1 major ASCVD risk factor, treating to a non-HDL-C goal of <100 mg/dL (LDL-C of <70 mg/dL) is considered a therapeutic option. Blood Blood / Unknown 05/27/2022 9 :56 AM EDT 05/27/2022 9:57 AM EDT [facility] BLOOD DRAW Final Result [employer] [facility] [address] [address], [facility] [address] [phone] * (ABNORMAL) COMPREHENSIVE METABOLIC PANEL (05/27/2022 9:56 AM EDT) GLUCOSE 100(H) 65 - 99 mg/dL [facility] Comment: Fasting reference interval For someone without known diabetes, a glucose value between 100 and 125 mg/dL is consistent with prediabetes and should be confirmed with a follow-up test. UREA NITROGEN (BUN) 15 7 - 25 mg/dL [facility] CREATININE (blood) 0.67 0.60 - 1.29 mg/dL [facility] EGFR 121 > OR = 60 mL/min/1 .73m2 [facility] Comment: The eGFR is based on the CKD-EPI 2020 equation. To calculate the new eGFR from a previous Creatinine or Cystatin C result, go to https://www.kidney.org/professionals/ kdoqi/gfr%5Fcalculator BUN/CREATININE RATIO NOT APPLICABLE 6 - 22 [facility] SODIUM 138 135 - 146 mmol/L [facility] POTASSIUM 4.3 3.5 - 5.3 mmol/L [facility] CHLORIDE 103 98 - 110 mmol/L [facility] CARBON DIOXIDE 29 20 - 32 mmol/L [facility] CALCIUM 9.3 8.6 - 10.3 mg/dL [facility] PROTEIN, TOTAL 8.0 6.1 - 8.1 g/dL [facility] ALBUMIN 4.2 3.6 - 5.1 g/dL [facility] GLOBULIN 3.8(H) 1.9 - 3.7 g/dL (calc) [facility] ALBUMIN/GLOBUL IN RATIO 1.1 1.0 - 2.5 (calc) [facility] BILIRUBIN, TOTAL 0.3 0.2 - 1.2 mg/dL [facility] ALKALINE PHOSPHATASE 82 36 - 130 U/L [facility] AST 16 10 - 40 U/L [facility] ALT 19 9 - 46 U/L [facility] Blood Blood / Unknown 05/27/2022 9:56 AM EDT 05/27/2022 9:57 AM EDT us [facility] - BLOOD DRAW Edited Result - Final Performing Organization Address [facility] Co de Phone Number [employer] [address] [address], [employer] [address] [phone] * HEPATITIS C AB W/RFLX HCV RNA, QT, RT PCR (08/29/2021 3:51 PM EST) HEPATITIS C ANTIBODY NON-REACT JIMMIE NON-REACT JIMMIE [facility] SIGNAL TO CUT-OFF 0.16 <1.00 [facility] Comment: HCV antibody was non-reactive. There is no laboratory evidence of HCV infection. In most cases, no further action is required. However, if recent HCV exposure is suspected, a test for HCV RNA (test code 38384) is suggested. For additional information please refer to http://education.Cuedd/faq/ITD59o2 (This link is being provided for informational/ educational purposes only.) Blood Blood / Unknown 08/29/2021 3 :51 PM EST 08/29/2021 3:51 PM EST us [facility] BLOOD DRAW Final Result Performing Organization Address [facility]/ZIP Co de Phone Number [facility] [address] [address], [employer] [address] [phone] * HIV 1/2 AG & AB W/RFLX (4TH GEN) (08/29/2021 3:51 PM EST) HIV AG/AB, 4TH GEN NON-REAC TIVE NON-REAC TIVE [facility] Comment: HIV-1 antigen and HIV-1/HIV-2 antibodies [...] purpose. For additional information please refer to http://education.Cuedd/faq/MKJ655 (This link is being provided for informational/ educational purposes only.) The performance of this assay has not been clinically validated in patients less than 2 years old. Blood Blood / Unknown 08/29/2021 3 :51 PM EST 08/29/2021 3:51 PM EST [facility] - BLOOD DRAW Final Result [employer] [address] [address], [employer] [facility] [address] [phone] from Last 3 Months or Most Recently Relevant to Health Maintenance Insurance [employer] Care Teams Patrol Officer Relationship Specialty Start Date End Date Heber Benson PA [address] [place] [address] PCP - General Internal Medicine 09/09/17
== END 2025-04-26 10:55 | disposition home or self-care (01) ==
LOC: HO.HCS 09:55
PROVIDERS: Visit Provider Internal Medicine Cardiovascular Disease
DX: I42.9 Cardiomyopathy, unspecified (principal)
CPT/HCPCS: 99214

== ENCOUNTER → 2025-04-26 09:55 | Outpatient (BNVA) | payer MEDICAID, SELFPAY | PROVIDERS: Visit Provider Internal Medicine Cardiovascular Disease | DX: I42.9 Cardiomyopathy, unspecified (principal); I21.4 Non-ST elevation (NSTEMI) myocardial infarction | CPT/HCPCS: 99212 ==

== ENCOUNTER 2025-06-25 10:41 | Emergency (ER) | payer MEDICAID, SELFPAY ==
--- NOTE | ~2025-06-25 | XR_ITS ---
CLINICAL HISTORY: pain 4 view left knee Comparison: None provided Findings: No acute or displaced fracture. No subluxation. Knee joint effusion. No intra-articular loose bodies. Mild tricompartmental osteoarthritis. No significance or severe joint space narrowing. No radiodense soft tissue foreign bodies. Impression: 1. No acute or traumatic findings identified. 2. Small knee joint effusion. 3. Mild tricompartmental osteoarthritis. This document has been electronically signed by: Maribeth Bowser MD on 06/25/2025 12:23:16
[2025-06-25 10:44] VITALS: BP 128/81; PULSE 74; RESP 20; TEMP 36.2; O2SAT 96; BMI 45.3
--- OUTSIDE RECORDS SUMMARY | 2025-06-25 11:34 | XMS_ITS | Clinical Summary ---
Author Organization [facility] Address [address] [place] [address] Care Team Providers Care Recreation Engineer Name Role Phone Heber Benson Primary Care Provider [phone] Source Comments PLEASE NOTE, if this patient [...] Date Severe obesity (BMI 35.0-35.9 with comorbidity) 05/27/2022 ASCVD (arteriosclerotic cardiovascular disease) 08/29/2021 Overview [...] 3 - 19 + 3-dose series) 2001 Imm-HPV (1 - 3-dose SCDM series) 2009 Annual Wellness (Adult): Ind icated (All Coverage) 05/27/2023 05/27/2022, 09/03/2017 Lipid Screening 05/27/2023 05/27/2022, 08/15, 09/09/2017 TSH Monitoring 05/27/2023 05/27/2022 Hypertension Screening (#1) 12/18/2023 Alcohol and Drug Screen 09/15/2024 12/19/19 23, 12/18/2022, 05/27/2022, Additional history exists Depression Annual Screen 09/15/2024 12/18/2022, 08/16 [id number] ( season) 2025 021, 12/26/2020 Imm-Influenza (#1) 2025 09/22/2017 Diabetes Screening 05/27/2025 05/27/2022, 1 10/30/2020, 09/09/2017 Imm-DTaP/Tdap/Td (2 - Td or Tdap) 09/22/2027 018 HIV Screening Completed 08/29/2021 Hepatitis C Screening Completed 08/29/2021 Procedures Procedure Name Priority Date/Time Associated Diagnosis Comments TSH W/RFLX FREE T4 Routine 05/27/2022 9: 56 AM EDT Severe obesity (BMI 35.0-35.9 with comorbidity) ([facility]) Hypercholesteremia Routine adult health maintenance COMPREHENSIVE METABOLIC PANEL Routine 05/27/2022 9:56 AM EDT Severe obesity (BMI 35.0-35.9 with comorbidity) ([facility]) Hypercholesteremia Routine adult health maintenance LIPID PANEL Routine 05/27/2022 9:56 AM EDT Severe obesity (BMI 35.0-35.9 with comorbidity) ([facility]) Hypercholesteremia Routine adult health maintenance HIV 1/2 [...] TO FT4 6.25(H) 0.40 - 4.50 mIU/L [facility] Blood Blood / Unknown 05/27/2022 9 :56 AM EDT 05/27/2022 9:57 AM EDT [facility] - BLOOD DRAW Final Result [employer] [address] [address], [facility] [address] [place] [address],[place] [address] * (ABNORMAL) LIPID PANEL (05/27/2022 9:56 AM EDT) CHOLESTEROL, TOTAL 165 <200 mg/dL [facility] HDL CHOLESTEROL 37(L) > OR = 40 mg/dL [facility] TRIGLYCERIDES 118 <150 mg/dL [facility] LDL-CHOLESTEROL 107(H) 99 mg/dL (calc) [facility] Comment: Reference range: <100 Desirable range <100 mg/dL for primary prevention; <70 mg/dL for patients with CHD or diabetic patients with > or = 2 CHD risk factors. LDL-C is now calculated using the Reji calculation, which is a validated novel method providing better accuracy than the Friedewald equation in the estimation of LDL-C. Esau HATFIELD et al. JAYLA. 2013;310(19): 4788-0701 (http://education.Gecko/faq/LOR428) CHOL/HDLC RATIO 4.5 <5.0 (calc) [facility] NON-HDL CHOLESTEROL 128 <130 mg/dL (calc) [facility] Comment: For patients with diabetes plus 1 major ASCVD risk factor, treating to a non-HDL-C goal of <100 mg/dL (LDL-C of <70 mg/dL) is considered a therapeutic option. Blood Blood / Unknown 05/27/2022 9 :56 AM EDT 05/27/2022 9:57 AM EDT [facility] - BLOOD DRAW Final Result [employer] [facility] [address] [address], [employer] [facility] [address],[place] [address] * (ABNORMAL) COMPREHENSIVE METABOLIC PANEL (05/27/2022 9:56 AM EDT) GLUCOSE 100(H) 65 - 99 mg/dL [employer] [facility] Comment: Fasting reference interval For someone without known diabetes, a glucose value between 100 and 125 mg/dL is consistent with prediabetes and should be confirmed with a follow-up test. UREA NITROGEN (BUN) 15 7 - 25 mg/dL [employer] [facility] CREATININE (blood) 0.67 0.60 - 1.29 mg/dL [employer] [facility] EGFR 121 > OR = 60 mL/min/1 .73m2 [employer] [facility] Comment: The eGFR is based on the CKD-EPI 2020 equation. To calculate the new eGFR from a previous Creatinine or Cystatin C result, go to https://www.kidney.org/professionals/ kdoqi/gfr%5Fcalculator BUN/CREATININE RATIO NOT APPLICABLE 6 - 22 [employer] [facility] SODIUM 138 135 - 146 mmol/L [employer] [facility] POTASSIUM 4.3 3.5 - 5.3 mmol/L [employer] [facility] CHLORIDE 103 98 - 110 mmol/L [employer] [facility] CARBON DIOXIDE 29 20 - 32 mmol/L [employer] [facility] CALCIUM 9.3 8.6 - 10.3 mg/dL [employer] [facility] PROTEIN, TOTAL 8.0 6.1 - 8.1 g/dL [employer] [facility] ALBUMIN 4.2 3.6 - 5.1 g/dL [employer] [facility] GLOBULIN 3.8(H) 1.9 - 3.7 g/dL (calc) [employer] [facility] ALBUMIN/GLOBUL IN RATIO 1.1 1.0 - 2.5 (calc) [employer] [facility] BILIRUBIN, TOTAL 0.3 0.2 - 1.2 mg/dL [employer] [facility] ALKALINE PHOSPHATASE 82 36 - 130 U/L [employer] [facility] AST 16 10 - 40 U/L [employer] [facility] ALT 19 9 - 46 U/L [employer] [facility] Blood Blood / Unknown 05/27/2022 9 :56 AM EDT 05/27/2022 9:57 AM EDT us [facility] - BLOOD DRAW Edited Result - Final Performing Organization Address [facility]/ZIP Co de Phone Number [employer] [address] [address], [employer] [address] [address] * HEPATITIS C AB W/RFLX HCV RNA, QT, RT PCR (08/29/2021 3:51 PM EST) HEPATITIS C ANTIBODY NON-REACT JIMMIE NON-REACT JIMMIE [employer] [facility] SIGNAL TO CUT-OFF 0.16 <1.00 [employer] [facility] Comment: HCV antibody was non-reactive. There is no laboratory evidence of HCV infection. In most cases, no further action is required. However, if recent HCV exposure is suspected, a test for HCV RNA (test code 99078) is suggested. For additional information please refer to http://education.[employer]/faq/CFZ46f2 (This link is being provided for informational/ educational purposes only.) Blood Blood / Unknown 08/29/2021 3 :51 PM EST 08/29/2021 3:51 PM EST us [facility] - BLOOD DRAW Final Result Performing Organization Address City/[facility]/ZIP Co de Phone Number [employer] [address] [address], [employer] [address],[facility] [address] * HIV 1/2 AG & AB W/RFLX (4TH GEN) (08/29/2021 3:51 PM EST) HIV AG/AB, 4TH GEN NON-REAC TIVE NON-REAC TIVE [employer] [facility] Comment: HIV-1 antigen and HIV-1/HIV-2 [...] purpose. For additional information please refer to http://education.[employer]/faq/SAS412 (This link is being provided for informational/ educational purposes only.) The performance of this assay has not been clinically validated in patients less than 2 years old. Blood Blood / Unknown 08/29/2021 3 :51 PM EST 08/29/2021 3:51 PM EST [facility] - BLOOD DRAW Final Result [employer] [facility] [address] [address], [employer] [facility] [address],[facility] [address] from Last 3 Months or Most Recently Relevant to Health Maintenance Insurance [employer] Care Teams Recreation Engineer Relationship Specialty Start Date End Date Heber Benson PA [address] [place] [address] PCP - General Internal Medicine 09/09/17
--- NOTE | 2025-06-25 11:46 | ED_ITS ---
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 Shane HPI Narrative: 45-year-old male came in for evaluation of left knee pain on and off for the past 8 years, there is a remote history of fall and left knee injury addition 8 years ago since then patient suffered from pain that come in waves triggered by exertion and movement, no recent fall or injury to the knee, no fever, no chills. Still able to ambulate unsteady gait. Related Data Previous Rx's ?Medication ?Instructions ?Recorded vitamin A palmitate 3,000 mcg 10,000 unit PO DAILY #60 caps 12/06/24 (10,000 unit) capsule thiamine HCl (vitamin B1) 100 mg 100 mg PO DAILY 90 da ys #90 tabs 12/08/24 tablet docusate sodium 100 mg capsule 100 mg PO DAILY #90 cap s 12/21/24 (Colace) metoprolol succinate 50 mg 50 mg PO DAILY #30 tabs 02/06 tablet,extended release 24 hr (Toprol XL) valsartan 80 mg tablet 80 mg PO DAILY #30 tabs 05/02/06 levothyroxine 25 mcg tablet 25 mcg PO DAILY #30 tabs 0 02/02/25 cholecalciferol (vitamin D3) 125 125 mcg PO DAILY #90 caps 03/09/ mcg (5,000 unit) capsule tirzepatide (weight loss) 5 mg/0.5 5 mg (0.5 mL) subcu t .QMONDAY #2 mL 04/26/25 mL subcutaneous pen injector (Zepbound) Allergies Allergy/AdvReac Type Severity Reaction Status Date / Time Aspirin Allergy Severe Anaphylaxis Uncoded 06/25/25 10:45 Penicillin Allergy Severe Anaphylaxis Uncoded 06/25/25 10:45 Review of Systems Review of Systems: All other systems are reviewed and are negative Constitutional: Reports as per HPI and Reports no additional constitutional complaints Eyes: Reports as per HPI and Reports no additional eye complaints Reports system reviewed and no additional complaints, except as documented Cardiovascular: Reports as per HPI and Reports no additional cardiovascular complaints Respiratory: Reports as per HPI and Reports no additional respiratory complaints Gastrointestinal: Reports as per HPI and Reports no additional gastrointestinal complaints Genitourinary: Reports no additional female genitourinary complaints Musculoskeletal: Reports no additional musculoskeletal complaints Skin/Breast: Reports system reviewed and no additional complaints, except as docu Psychiatric: Reports no additional psychiatric complaints Endocrine: Reports no additional endocrine complaints Hematologic/Lymphatic: Reports no additional hematologic/lymphatic complaints Allergic/Immunologic: Reports no additional allergic/immunologic complaints Reports system reviewed and no additional complaints, except as documented and Reports Abnormal speech present [facility] Past Medical History Medical History Asthma Acute non-ST elevation myocardial infarction (NSTEMI) GERD (gastroesophageal reflux disease) Sleep apnea with use of continuous positive airway pressure (CPAP) Morbid obesity Surgical History History of surgery History of kidney surgery Family History Family History Father Coronary artery disease Diabetes Hypertension Mother Asthma Sister No problems noted. Sister No problems noted. Sister No problems noted. Sister No problems noted. Sister No problems noted. Brother No problems noted. Brother No problems noted. Son No problems noted. Daughter No problems noted. Social History Social History Household Members: Spouse, Family and Children Housing: House Are you a primary urgent care technician to a significant other at home: No Do you presently have visiting nurse or other home services: No Alcohol intake: never Patient Tobacco Use Status: Former Tobacco user Tobacco use type: Cigarette Smoked in Last 30 Days: No Use of substances other than those prescribed or required for medical reasons: No Advance Directives: No Advance Directives Information Provided: No Do you have a plan to hurt others: No Plan service: No Physical Exam Vital Signs: Vital Signs: Last Vital Signs Temp 97.1 F 06/25/25 10:44 Pulse 74 06/25/25 10:44 Resp 20 06/25/25 10:44 BP 128/81 06/25/25 10:44 Pulse Ox 96 06/25/25 10:44 O2 Del Method Room Air 06/25/25 10:44 BMI result Body Mass Index 45.3 Vital signs have been reviewed and appear to be correct. Blood pressure elevated. Heart rate normal. Respiratory rate normal. Temperature normal. Oxygen saturation normal. Appearance: Alert. Oriented X3. No acute distress. Head: Normal external exam. Normocephalic. Atraumatic. No Landa signs noted. No raccoon eyes noted Eyes: PERRLA. EOMI. Conjunctiva and sclera normal. Eyelids normal. ENT: TM's Normal. Pharynx normal. Uvula midline. Moist mucous membranes. No trismus noted. No drooling noted. No muffled voice noted. Neck: Normal inspection. Neck supple. FROM. No adenopathy. Thyroid Normal. No meningeal signs. No neck mass noted. CVS: Normal heart rate and rhythm. Heart sound normal. No murmurs noted. Pulses normal throughout. Respiratory: No respiratory distress. Painless inspiration. Breath sounds normal. No wheezes/rales/rhonchi noted. Chest nontender. No accessory muscle usage noted or decreased air movement noted. Abdomen: Soft and nontender. Bowel sounds normal in all 4 quadrants. No distention noted. No organomegaly noted. No visible injury noted. Back: No CVA tenderness. Full range of motion noted. Skin: Skin warm and dry. Normal skin color. Normal skin turgor. No rashes/lesions/lacerations noted. Extremities: Left lower extremity exam: Left knee: No effusion, no deformity, no step-off, neurovascularly intact. + popliteal/PT/DP arterial pulsation, cap refill was less than 2 seconds. Neuro: Oriented X 3. Sensation to light touch is intact. Cranial nerve exam: II-XII are grossly intact No motor deficit. No sensory deficit. Reflexes normal. Course Reevaluation(s) Reevaluation #1: 45-year-old male with old injury to left knee been having on and off left knee pain for the past 8 years, no apparent ligamentous injury, no apparent fracture on the x-ray, neurovascularly intact, will reassure the patient, referred to outpatient orthopedic for further evaluation. Time: 11:49 Medical Decision Making Differential Diagnosis Differential Diagnoses: The differential diagnosis associated with the presentation includes (Derangement of left knee, fracture, dislocation, neurovascular compromise, infection, arthritis.) Admission/Observation Consideration of admission/observation: Escalation of care including admission/observation considered Independent Interpretation I performed an independent interpretation of an: Plain X-Ray (Left knee:1. No acute or traumatic findings identified. 2. Small knee joint effusion. 3. Mild tricompartmental osteoarthritis.) Radiology Impression Discussion of test interpretation with radiology: I have reviewed the radio logist's reading. Discharge Plan Discharge Clinical Impression: Acute internal derangement of knee Patient Disposition: Home, Self-Care Instructions: Arthralgia (ED) Additional Instructions: Take [id number]-[id number] ibuprofen 200 mg tablet every 6 hours if needed for pain. Prescriptions: No Action vitamin A palmitate 3,000 mcg (10,000 unit) capsule 10,000 unit PO DAILY Qty: 60 0RF thiamine HCl (vitamin B1) 100 mg tablet 100 mg PO DAILY 90 Days Qty: 90 0RF docusate sodium [Colace] 100 mg capsule 100 mg PO DAILY Qty: 90 0RF levothyroxine 25 mcg tablet 25 mcg PO DAILY Qty: 30 2RF cholecalciferol (vitamin D3) 125 mcg (5,000 unit) capsule 125 mcg PO DAILY Qty: 90 0RF Zepbound 5 mg/0.5 mL pen injector 5 mg subcut .QMONDAY Qty: 2 5RF metoprolol succinate [Toprol XL] 50 mg tablet extended release 24 hr 50 mg PO DAILY Qty: 30 5RF valsartan 80 mg tablet 80 mg PO DAILY Qty: 30 5RF Referrals: Austin Mccormack MD [Physician, Orthopedics] Maria Esther Way DO [Primary Care Provider, Internal Medicine] Print Language: [place]
[2025-06-25 13:17] VITALS: BP 126/82; PULSE 75; RESP 17; TEMP 36.2; O2SAT 97
== END 2025-06-25 13:18 | disposition home or self-care (01) ==
PROVIDERS: Emergency Provider Emergency Medicine; PCP Family Medicine
DX: M23.92 Unspecified internal derangement of left knee (principal); M25.562 Pain in left knee
CPT/HCPCS: 73564; 99283; 99284

== ENCOUNTER → 2025-06-25 11:53 | Outpatient (BNV) | payer MEDICAID, SELFPAY | PROVIDERS: Emergency Provider Emergency Medicine; PCP Family Medicine; Visit Provider Radiology Diagnostic Radiology | DX: M17.12 Unilateral primary osteoarthritis, left knee (principal); M25.462 Effusion, left knee | CPT/HCPCS: 73564 ==